=== PATIENT | male | born 1950 | race Caucasian/White ===

== ENCOUNTER 2019-11-30 09:47 | Emergency (ER) | payer MEDICARE, SELFPAY ==
[2019-11-30] VITALS (7 sets, daily range): BP systolic 154–177; BP diastolic 70–72; PULSE 68–83; RESP 13–21; TEMP 36.9; O2SAT 98–99
--- NOTE | 2019-11-30 10:04 | ED.GENADUL_ITS ---
Discharge Plan Disposition Patient Disposition: HOME Condition: Stable Discharge Details Chief Complaint: Palpitatns Clinical Impression: Chest heaviness Primary Care Provider: Monica Sol ED Provider: Jeanette Salas Home Meds and New Rx's Prescriptions: Continued flecainide [Tambocor] 50 MG tablet 50 mg PO BID RF: 0 aspirin 81 MG tablet,chewable 81 mg PO DAILY RF: 0 gabapentin 100 MG capsule 100 mg PO HS RF: 0 Discharge Instructions Instructions: Heart Palpitations (ED) Additional Instructions: Follow up with primary care provider in 3-5 days. Return to ED sooner if any worsening or concerns. Increase oral fluids. Continue taking your normal medications including aspirin daily. Return for any worsening chest heaviness, chest pain or worsening palpitations. Referrals: Monica Sol [Primary Care Provider] - Discharge Data Discharge Date/Time-TO BE ENTERED AT DEPARTURE: 11/30/19 11:29 Medical Decision Making <Jeanette Salas - Last Filed: 12/01/19 08:41> 69-year-old male presents to the ED with a chief complaint of palpitations. He describes this as fluttering, chest heaviness, weakness. Non radiating symptoms, began approximately 12 hours ago and is consistent. However, upon initial arrival he is in a controlled rate of 85 and normal sinus rhythm. Denies any other symptoms including nausea, vomiting, shortness of breath, or cough. He does have a history of atrial fibrillation and takes flecainide daily and aspirin intermittently. He did state that he took 325 mg aspirin prior to arrival. Patient does have positive cardiac family history. 1011: EKG was reviewed by [Dr. Reed Bruno MD.] ER attending, there is subtle ST depression noted in V4 V5 V6 which is similar in an EKG review from July 19, 2017. At this time cardiac work-up ordered including CBC, CMP, troponin, chest x-ray. Work-up is largely benign troponin is negative, platelet count 122. 1124: Patient refusing chest x-ray at this time. Discussed initial labs with patient, he is requesting to be discharged home. Plan is to discharge with strict return instructions. This text was generated using PulseSocksation system, please disregard any oddities of phrase or misspellings. Patient remained hemodynamically stable throughout stay alert and oriented and ambulatory prior to discharge. <Sam Bruno DO - Last Filed: 11/30/19 17:43> EKG 9: 50 Rate 78, SC 218, QTc 421, QRS 104, sinus rhythm, no significant ST elevation, minimal less than 1 mm depression in V4 V5 V6, no reciprocal elevations. Previous EKGs seem to demonstrate near identical findings particularly from 07/19/2017. No other abnormalities, no evidence of STEMI Patient was seen in conjunction with Rosita Lincoln. Please refer to her HPI, physical exam assessment and plan. Abbreviated note, patient was seen and assessed by myself independently, patient presents with chest pain that occurred last night which she describes more so is a palpitation/fluttering-like feeling. No syncope, no chest heaviness tightness or elephant sitting on his chest. Exam is notably unremarkable, heart score is low to low moderate risk. Sinus rhythm here, no signs of A. fib or other abnormality to speak of aside from mild nonspecific less than a millimeter depression in V4 V5 V6 which seems to be present on prior EKGs. Symptoms notably inconsistent with severe ACS, however with his history I do feel that a cardiac work-up is reasonable to evaluate abnormalities. Laboratory work-up is unremarkable, troponin normal. Was requested that the patient stay for serial troponins and get an x-ray however he refused both. Patient was very pleasant and after long discussion was had regarding the risks and benefits of this plan the patient agreed to accept those risks, and was discharged per his request. I independently performed a history and physical examination of the patient and discussed the management with the midlevel provider. I agree with the current plan of management at the time of signing. HPI <Jeanette Worthingtonton - Last Filed: 12/01/19 08:41> General Mode of arrival: ambulatory . Date/Time Provider Initiated Documentation: 11/30/19 09:48 . Limitations to Documentation: no limitations . Information obtained by: patient . HPI Narrative: 69-year-old male presents to the ED with a chief complaint of palpitations. He describes this as fluttering, chest heaviness, weakness. Non radiating symptoms, began approximately 12 hours ago and is consistent. Denies any other symptoms including nausea, vomiting, shortness of breath, or cough. He does have a history of atrial fibrillation and takes flecainide daily and aspirin intermittently. He did state that he took 325 mg aspirin prior to arrival. Patient does have positive cardiac family history. Related Data Home Medications Medication Instructions Recorded Confirmed aspirin 81 mg PO DAILY 06/17/15 11/30/19 flecainide [Tambocor] 50 mg PO BID 06/17/15 11/30/19 gabapentin 100 mg PO HS 07/19/17 11/30/19 Allergies Allergy/AdvReac Type Severity Reaction Status Date / Time No Known Allergies Allergy Unverified 11/30/19 09:57 General Stated Complaint: Palpitatns ZION: 2 Review of Systems <Jeanette Salas - Last Filed: 12/01/19 08:41> Narrative: Constitutional: Negative for weight loss, alert and oriented, well groomed, normal body habitus, appears comfortable. Reports he did not sleep last night. HEENT: Denies trauma, headaches, blurry vision, nasal discharge, sore throat, trouble swallowing. Chest: History of atrial fibrillation, complains of palpitations, chest heaviness, weakness. Respiratory: Denies Shortness of breath, cough, hemoptysis. GI: Denies abdominal pain, nausea, vomiting, diarrhea, constipation. : Denies dysuria, hematuria, flank pain, rectal bleeding. Neuro: Denies dizziness, blurry vision, syncope, headache or facial numbness. Hematologic: Denies easy bruising, intolerance to heat or cold, hair loss. PFSH <Jeanette Salas - Last Filed: 12/01/19 08:41> Social History Smoking/Tobacco Use Status: Never Alcohol Intake: current Alcohol Intake frequency: holidays/special occasions only Drug use: Never Substance use type: does not use Do you feel safe at home: Yes Do you feel safe in your relationship?: Yes Exam <Jeanette Maritza - Last Filed: 12/01/19 08:41> Narrative Exam Narrative: Constitutional: Alert and oriented x3. Appears stated age. Normal body habitus. Head: Normocephalic, no trauma. Eyes: Pupils PERRLA, Red reflex noted, EOM's intact. Eyelids symmetrical without lesions, discharge, or swelling. ENT: Bilateral TM's WNL, External ear normal to inspection, no mastoid TTP, swelling, or erythema, Nasal turbinates WNL, no nasal discharge. Normal dentition, Posterior pharynx WNL, no exudate. Chest: RRR, Normal S1, S2, distal pulses intact. Normal sinus rhythm upon arrival. Resp: Lungs clear to auscultation bilaterally, no wheezes, rales, or rhonchi. Musculoskeletal: Normal gait, 5/5 strength to all four extremities. Skin: No suspicious rashes or lesions. Capillary refill less than 2 sec. Neurologic: Cranial nerves II-XII intact. Alert and oriented x 3. DTR's intact. Hematologic/Lymphatic: No ecchymosis, no lymphadenopathy. Course <Jeanette Worthingtonton - Last Filed: 12/01/19 08:41> Vital Signs Vital signs: Vital Signs Temperature 36.9 C 11/30/19 09:48 Pulse 82 11/30/19 09:48 Respiratory Rate 14 11/30/19 09:48 Blood Pressure 177/72 H 11/30/19 09:48 Pulse Oximetry 98 11/30/19 09:48 Temperature 36.9 C 11/30/19 09:48 Temperature Source Skin 11/30/19 09:48 Pulse 82 11/30/19 09:48 Respiratory Rate 14 11/30/19 09:48 Respiratory Effort 11/30/19 09:58 Blood Pressure 177/72 H 11/30/19 09:48 Pulse Oximetry 98 11/30/19 09:48 Oxygen Delivery Method Room Air 11/30/19 09:48 Oxygen Flow Rate 0 11/30/19 09:48 Pain Level 0 11/30/19 09:48
[2019-11-30 10:42] LABS: Abs Immature Grans 0.01 k/cumm (0.0-0.09); Absolute Basophil Count 0.03 k/cumm (0.0-0.2); Absolute Eosinophil Count 0.06 k/cumm (0.0-0.7); Absolute Lymphocyte Count 0.84 k/cumm (1.2-3.4); Absolute Monocyte Count 0.37 k/cumm (0.11-0.7); Basophils % 0.7; Eosinophils % 1.4; HCT 42.1 % (40.0-50.0); HGB 14.4 g/dL (13.5-17.5); Immature Grans % 0.2 %; Mean Corp. HGB Concentration 34.2 g/dL (32.0-36.0); Mean Corpuscular Hemoglobin 32.2 pg (27.0-33.0); Mean Corpuscular Volume 94.2 fL (80-95); Mean Platelet Volume 11.8 fL (8.0-11.0); Monocytes % 8.4; Neutrophils % 70.3; Platelet Count 122 x1000/uL (130-400); RBC 4.47 m/cumm (4.50-6.00); RBC Distribution Width 12.6 % (11.8-14.1); White Blood Cell Count 4.41 k/cumm (4.4-10.8)
[2019-11-30 10:55] LABS: ALT 25 U/L (16-63); AST 20 U/L (15-37); Albumin 3.7 g/dL (3.4-5.0); Alkaline Phosphatase 69 U/L (46-116); BUN 19 mg/dL (7-18); Bilirubin, Total 0.6 mg/dL (0.2-1.0); CREATININE 1.05 mg/dL (0.70-1.30); Calcium 8.7 mg/dL (8.5-10.1); Chloride 108 mmol/L (98-107); Glucose 104 mg/dL (74-106); Magnesium 1.9 mg/dL (1.8-2.4); Potassium 3.9 mmol/L (3.5-5.1); Sodium 141 mmol/L (136-145); Total Protein 6.6 g/dL (6.4-8.2)
[2019-11-30 10:56] LABS: Troponin I < 0.05 ng/mL (<0.06)
== END 2019-11-30 11:29 | disposition home or self-care (01) ==
PROVIDERS: Emergency Provider Registered Nurse Emergency; PCP Nurse Practitioner Family
DX: R07.89 Other chest pain (principal); R00.2 Palpitations
CPT/HCPCS: 36415; 80053; 93005; 99284; 83735; 84484; 85025; 93010

== ENCOUNTER 2020-09-23 14:56 | Outpatient (CLI) | payer MEDICARE, SELFPAY ==
--- NOTE | 2020-09-23 14:00 | DI.RAD_ITS ---
EXAM: XR KNEE RT 4V AP,LAT,JYOTI,PAT CLINICAL HISTORY: bilateral knee pain. TECHNIQUE: 2D digital imaging was performed. COMPARISON: No exams were available for comparison FINDINGS: No evidence of fracture although there is a joint effusion noted. Moderate-advanced degenerative ross nges are noted in the medial compartment. Advanced degenerative changes in the patellofemoral compar tment. Mild changes in the lateral compartment. Degenerative subarticular cysts are noted in the mi d aspect tibial plateau. IMPRESSION: Tricompartmental osteoarthritic changes. Joint effusion DATA REPOSITORY: RADIATION DOSE DELIVERED:
--- NOTE | 2020-09-23 14:00 | DI.RAD_ITS ---
EXAM: XR KNEE LT 4V AP,LAT,JYOTI,PAT CLINICAL HISTORY: bilateral knee pain. TECHNIQUE: 2D digital imaging was performed. COMPARISON: CR XR KNEE RT 4V AP,LAT,JYOTI,PAT from 09/23/2020 FINDINGS: There is no evidence fracture although there is a joint effusion noted. There are advanced degenerat stefan changes in the medial and patellofemoral compartments. Moderate degenerative changes in the late ral compartment. Bone density otherwise normal and no osseous lesions. IMPRESSION: DATA REPOSITORY: RADIATION DOSE DELIVERED:
== END 2020-09-23 14:57 | disposition home or self-care (01) ==
LOC: DIORS 14:57
PROVIDERS: PCP Nurse Practitioner Family; Referring Provider Nurse Practitioner Family; Visit Provider Student in an Organized Health Care Education/Training Program
DX: M25.561 Pain in right knee (principal); M25.461 Effusion, right knee; M25.562 Pain in left knee; M25.462 Effusion, left knee; M17.0 Bilateral primary osteoarthritis of knee
CPT/HCPCS: 99213; 73564

== ENCOUNTER 2020-10-23 11:24 | Outpatient (CLI) | payer MEDICARE, SELFPAY ==
[2020-10-23] MEDS: Omnipaque 350 MG/ML 50 ML BTL IJ (12:56)
[2020-10-23] MEDS: Breeza Beverage 473 ML BTL PO ×2 (12:57→12:58)
[2020-10-23 13:06] LABS: CREATININE 1.1 mg/dL (0.70-1.30)
--- NOTE | 2020-10-23 14:06 | DI.CT_ITS ---
Exam(s) CT ABDOMEN PELVIS W EXAM: CT ABDOMEN PELVIS W CLINICAL HISTORY: ACUTE ABD PAIN, R10.9. TECHNIQUE: Imaging Protocol: Axial computed tomography images with coronal and sagittal reformatted images were created and reviewed CONTRAST MATERIAL: Intravenous: Omnipaque 100cc Oral: None COMPARISON: No exams were available for comparison FINDINGS: VISUALIZED LUNG BASES: No nodules nor pleural effusions evident. ABDOMEN: There is no ascites. LIVER: There is a benign-appearing tiny 3 millimeter hypodensity in the right hepatic lobe which is p robably a tiny meningioma or cyst; less likely an ominous osseous lesion. GALLBLADDER/BILIARY: The gallbladder is surgically absent. CBD is not dilated. PANCREAS: No evidence of pancreatic mass nor dilatation of the pancreatic duct. SPLEEN: Spleen is not enlarged. No obvious intrasplenic lesions. Splenic and portal veins are paten t. ADRENALS: There are no significant adrenal masses. KIDNEYS:There is a 12 x 8 millimeter benign cortical cyst in the left kidney. No other significant f ocal left kidney findings. There is an exophytic cyst in the inferior pole of the right kidney which measures 1.2 x 1.1 cm. No calculi nor hydronephrosis on either side. No solid renal masses. No ca lculi nor obvious masses in the urinary bladder... ABDOMINAL AORTA: Abdominal aorta is not enlarged. LYMPH NODES:There is no retroperitineal nor paraaortic adenopathy. ABDOMINAL WALL: No evidence of significant anterior abdominal wall hernia. PELVIS: GI: No evidence of appendicitis.There is sigmoid diverticulosis. There is also focal abnormal streak ing in the sigmoid consistent with acute diverticulitis. This appears phlegmonous but no abscess at this point. LYMPH NODES: There is no intrapelvic nor inguinal adenopathy. REPRODUCTIVE: Prostate gland is enlarged. URINARY BLADDER: No abnormality. No gas therein to suggest fistulous communication. OSSEOUS: No significant osseous lesions. There is partial ankylosis of the sacroiliac joints noted. IMPRESSION: 1. There is sigmoid diverticulosis and there is acute diverticulitis. No abscess at this time. Appr opriate follow-up recommended. 2. Single benign cyst in each kidney. No solid renal masses. No renal calculi nor hydronephrosis. 3. Tiny benign-appearing hypodensity in the liver which is probably hemangioma or small cyst. 4. Partial ankylosis of the sacroiliac joints is incidentally noted. RADIATION DOSE DELIVERED: 927.65mGy.cm Total DLP DATA REPOSITORY: All CT scans at this facility are submitted to the National Radiology Data Registry (NRDR) Dose Index Registry (DIR) with the [employer] (ACR). RADIATION OPTIMIZATION: All CT scans at this facility use at least one of these dose optimization te chniques: automated exposure control; mA and/or kV adjustment per patient size (includes targeted exa ms where dose is matched to clinical indication); or iterative reconstruction.
== END 2020-10-23 11:44 ==
PROVIDERS: PCP Nurse Practitioner Family; Visit Provider Physician Assistant Medical
DX: R10.9 Unspecified abdominal pain (principal); Z01.812 Encounter for preprocedural laboratory examination; K76.89 Other specified diseases of liver; N28.1 Cyst of kidney, acquired; N40.0 Benign prostatic hyperplasia without lower urinary tract symptoms; K57.30 Diverticulosis of large intestine without perforation or abscess without bleeding; K57.32 Diverticulitis of large intestine without perforation or abscess without bleeding
CPT/HCPCS: 74177; 82565; Q9967

== ENCOUNTER 2020-10-23 14:42 | Outpatient (REF) | payer MEDICARE, SELFPAY ==
[2020-10-23 14:20] LABS: Abs Immature Grans 0.02 10^3/uL (0.0-0.06); Absolute Basophil Count 0.07 10^3/uL (0.0-0.2); Absolute Eosinophil Count 0.03 10^3/uL (0.0-0.7); Absolute Lymphocyte Count 1.25 10^3/uL (1.2-3.4); Absolute Monocyte Count 0.51 10^3/uL (0.1-0.8); Absolute Neutrophil Count 6.27 10^3/uL (1.2-6.7); Basophils % 0.9; Eosinophils % 0.4; HCT 46.6 % (40.0-50.0); HGB 15.7 g/dL (13.5-17.5); Immature Grans % 0.2; Lymphocytes % 15.3; MCHC 33.7 % (32.0-36.0); MCV 94.9 fL (80-95); MPV 12.9 fL (8.0-11.0); Monocytes % 6.3; Neutrophils % 76.9; Nucleated RBC 0 %; Platelet Count 155 10^3/uL (130-400); RBC 4.91 10^6/uL (4.36-5.78); RDW 12.3 % (11.8-14.1); RDW-SD 42.7 fL; WBC 8.15 10^3/uL (4.4-10.8)
[2020-10-23 14:32] LABS: ALT 38 U/L (16-63); AST 23 U/L (15-37); Albumin 4.1 g/dL (3.4-5.0); Alkaline Phosphatase 85 U/L (46-116); Anion Gap 10.1 mmol/L (3-11); BUN 15 mg/dL (7-18); Bilirubin, Total 0.9 mg/dL (0.2-1.0); CO2 27.9 mmol/L (21.0-32.0); CREATININE 1.1 mg/dL (0.70-1.30); Calcium 9.1 mg/dL (8.5-10.1); Chloride 105 mmol/L (98-107); Glucose 105 mg/dL (74-106); Potassium 4.1 mmol/L (3.5-5.1); Sodium 143 mmol/L (136-145); Total Protein 7.4 g/dL (6.4-8.2)
[2020-10-24 16:17] LABS: COVID-19 RT-PCR UVMMC Result Negative (Negative)
== END 2020-10-23 14:43 | disposition home or self-care (01) ==
LOC: NCHCN 14:42
PROVIDERS: PCP Nurse Practitioner Family; Visit Provider Physician Assistant Medical
DX: R50.9 Fever, unspecified (principal); R10.9 Unspecified abdominal pain; R82.998 Other abnormal findings in urine; Z20.822 Contact with and (suspected) exposure to COVID-19
CPT/HCPCS: 80053; U0003; U0005; 85025; 87086

== ENCOUNTER 2021-01-06 15:02 | Outpatient (REF) | payer MEDICARE, SELFPAY | END 2021-01-06 15:03 | disposition home or self-care (01) | LOC: LBN 15:02 | PROVIDERS: PCP Nurse Practitioner Family; Visit Provider Physician Assistant Medical | DX: J02.9 Acute pharyngitis, unspecified (principal) | CPT/HCPCS: 87070 ==

== ENCOUNTER 2021-05-28 15:27 | Observation (INO) | payer MEDICARE, SELFPAY ==
[2021-05-28] VITALS (15 sets, daily range): BP systolic 118–163; BP diastolic 63–82; PULSE 68–96; RESP 12–40; TEMP 36.3–37.2; O2SAT 93–97
--- NOTE | 2021-05-28 15:15 | RT.EKG_ITS ---
APPROVED REPORT Exam: Resting ECG Reason for Exam: lightheaded Patient Location: E HR:89 bpm ECG Measurements Heart Rate 89 AXIS [place] 208 P 69 QRSd 98 QRS -27 QT 342 T 34 QTc 417 Conclusion Sinus rhythm...normal P axis, V-rate 60- [address] dep, no change compared to prior NO stemi
[2021-05-28 15:42] LABS: Bilirubin Negative (Negative); Blood Negative (Negative); Clarity Clear (Clear); Glucose Negative (Negative); Ketones Negative (Negative); Leukocyte Esterase Negative (Negative); Nitrite Negative (Negative); Specific Gravity >= 1.030 (1.005-1.025); Urobilinogen 0.2 EU/dL (Up TO 0.2)
--- NOTE | 2021-05-28 15:45 | DI.RAD_ITS ---
Exam(s) XR CHEST 2V PA LATERAL EXAM: XR CHEST 2V PA LATERAL CLINICAL HISTORY: chest pain TECHNIQUE: 2D digital imaging was performed. COMPARISON: CR CHEST 2 VIEWS PA,LAT from 07/19/[address] ABDOMEN PELVIS W from 10/23/[address] ABDOMEN PELVIS W from 10/23/2020 FINDINGS: MEDIASTINUM: Normal. HEART: Normal. PULMONARY VASCULATURE: Normal. LUNGS: Clear. PLEURAL SPACE: No pleural effusion or pneumothorax. BONE:Unremarkable for age. IMPRESSION: No acute abnormality. DATA REPOSITORY: RADIATION DOSE DELIVERED:
[2021-05-28 16:06] LABS: Source Nasal/Nares
[2021-05-28 16:08] LABS: Abs Immature Grans 0.01 10^3/uL (0.0-0.06); Absolute Basophil Count 0.07 10^3/uL (0.0-0.2); Absolute Eosinophil Count 0.04 10^3/uL (0.0-0.7); Absolute Lymphocyte Count 0.89 10^3/uL (1.2-3.4); Absolute Neutrophil Count 4.16 10^3/uL (1.2-6.7); Basophils % 1.2; Eosinophils % 0.7; HCT 44.9 % (40.0-50.0); HGB 14.8 g/dL (13.5-17.5); Immature Grans % 0.2; Lymphocytes % 15.7; MCH 31.8 pg (27.0-33.0); MCV 96.6 fL (80-95); MPV 11.8 fL (8.0-11.0); Monocytes % 8.8; Neutrophils % 73.4; Nucleated RBC 0 %; Platelet Count 140 10^3/uL (130-400); RBC 4.65 10^6/uL (4.36-5.78); RDW 12.3 % (11.8-14.1); RDW-SD 43.6 fL; WBC 5.67 10^3/uL (4.4-10.8)
[2021-05-28 16:26] LABS: ALT 44 U/L (16-63); AST 26 U/L (15-37); Albumin 4.2 g/dL (3.4-5.0); Alkaline Phosphatase 75 U/L (46-116); Anion Gap 5.8 mmol/L (3-11); BUN 27 mg/dL (7-18); Bilirubin, Total 0.3 mg/dL (0.2-1.0); CO2 28.2 mmol/L (21.0-32.0); CREATININE 1.7 mg/dL (0.70-1.30); Calcium 8.8 mg/dL (8.5-10.1); Chloride 105 mmol/L (98-107); Estimated GFR 39.93 (mL/min/1.73m2); Glucose 130 mg/dL (74-106); Magnesium 2.1 mg/dL (1.8-2.4); Potassium 4.5 mmol/L (3.5-5.1); Sodium 139 mmol/L (136-145); Total Protein 7.1 g/dL (6.4-8.2); Troponin I < 50 ng/L (<or=60)
[2021-05-28 16:33] LABS: PTT Activated 22.8 sec (21.0-27.5)
[2021-05-28 16:43] LABS: D-Dimer 323 ng/mlFEU (<500)
--- NOTE | 2021-05-28 16:50 | ED.GENADUL_ITS ---
Discharge Plan Disposition Patient Disposition: [facility] INPATIENT Condition: Serious Discharge Details Chief Complaint: GenMedical Clinical Impression: Chest pain, Lightheadedness Primary Care Provider: Monica Sol ED Provider: Wenceslao Solares Home Meds and New Rx's Prescriptions: No Action ascorbic acid (vitamin C) 1,000 mg tablet 4 g PO DAILY RF: 0 omega-3 fatty acids [Fish Oil Concentrate] 1,000 mg capsule 2,000 mg PO DAILY RF: 0 cholecalciferol (vitamin D3) 25 mcg (1,000 unit) capsule 75 mcg PO DAILY PRNRF: 0 magnesium 250 mg tablet 250 mg PO DAILY RF: 0 folic acid 400 mcg tablet 0.8 mg PO DAILY RF: 0 vitamin B complex [Super B-50 Complex] Capsule 1 cap PO DAILY RF: 0 fluticasone propionate [Children's Flonase Allergy Rlf] 50 mcg/actuation spray,suspension 1 spray intranasal DAILY RF: 0 lysine [L-Lysine] 500 mg tablet 1,000 mg PO DAILY RF: 0 turmeric root extract 500 mg capsule 500 mg PO DAILY RF: 0 montelukast [Singulair] 10 mg tablet 10 mg PO QHS RF: 0 henjmpw-tsuiwgzg-xcdvmk-papaya 50 mcg-1 mg- 10 mg-10 mg tablet,chewable 3 tab PO BID RF: 0 flecainide [Tambocor] 50 MG tablet 50 mg PO BID RF: 0 aspirin 81 MG tablet,chewable 81 mg PO DAILY RF: 0 gabapentin 100 mg capsule 200 mg PO HS RF: 0 Medical Decision Making 1700??70-year-old male presents with chest discomfort and intermittent fatigue and lightheadedness since yesterday. Patient did have episode of hypoxia in the 80s yesterday. No cough or fever. Patient has no active chest pain or shortness of breath at this time. No calf pain or swelling. Patient has recent history of epididymitis and is currently on Bactrim day #8. Symptoms improving. No signs of epididymitis on exam today. Consider unstable angina. EKG was reviewed and interpreted by me: Please see report, no STEMI, ST depressions are noted and were present in the past. Plan to check troponin and trend. Consider pulmonary embolism. Plan to check D-dimer. Initial labs reviewed and creatinine is notably elevated at 1.7. BUN is also elevated. Consider prerenal I will give IV fluid bolus. --Patient did have bigeminy noted on front desk monitor for less than 1 minute. 185 --initial troponin and second troponin at 2 hours negative. Patient reassessed remains chest pain-free. Given risk factors and history, plan will be to observe overnight on front desk monitor with serial troponins. I called and spoke with Dr. Mccain, on-call hospitalist, he will admit the patient. He request bridging orders be placed to floor. HPI General Mode of arrival: ambulatory . Date/Time Provider Initiated Documentation: 05/28/21 15:30 . Limitations to Documentation: no limitations . Information obtained by: patient . HPI Narrative: 70yo m with past medical history significant for A. fib and also listed anxiety disorder, recently diagnosed with right-sided epididymitis and started on Bactrim which he has been on for the past week, here now with chief complaint of fatigue. Patient notes fatigue and lightheadedness that started yesterday after shoveling snow. He also notes associated cramping discomfort in his chest today as well as ongoing intermittent lightheadedness. Symptoms are moderate with no modifiers. No associated leg pain or swelling. No associated shortness of breath. Of note, his checked his oxygen saturation yesterday and it did range from 86 to 98% on room air. Pain from right epididymitis has improved. Related Data Home Medications Medication Instructions Recorded Confirmed aspirin 81 mg PO DAILY 06/17/15 05/28/21 flecainide [Tambocor] 50 mg PO BID 06/17/15 05/28/21 gabapentin 100 mg capsule 200 mg PO HS cap 09/23/20 05/28/21 amylase 50 mcg-protease 1 3 tab PO BID tab 09/24/20 mg-papain 10 mg-papaya 10 mg chewable tablet ascorbic acid (vitamin C) 1,000 mg 4 g PO DAILY tab 09/24/20 05/28/21 tablet cholecalciferol (vitamin D3) 25 75 mcg PO DAILY PRN cap 09/24/20 05/28/21 mcg (1,000 unit) capsule fluticasone propionate 50 1 spray INTRANASAL DAILY 09/24/20 mcg/actuation nasal spray,suspension folic acid 400 mcg tablet 0.8 mg PO DAILY tab 09/24/20 lysine 500 mg tablet 1,000 mg PO DAILY tab 09/24/20 05/28/21 magnesium 250 mg tablet 250 mg PO DAILY 09/24/20 05/28/21 montelukast 10 mg tablet 10 mg PO QHS 09/24/20 omega-3 fatty acids 1,000 mg 2,000 mg PO DAILY cap 09/24/20 capsule turmeric root extract 500 mg 500 mg PO DAILY 09/24/20 capsule vitamin B complex 1 cap PO DAILY 09/24/20 05/28/21 Allergies Allergy/AdvReac Type Severity Reaction Status Date / Time No Known Allergies Allergy Verified 05/28/21 15:47 General Stated Complaint: GenMedical ZION: 3 Review of Systems All systems reviewed & are unremarkable except as noted in HPI and below Constitutional Constitutional: Denies fever(s) Cardiovascular Cardiovascular: Reports as per HPI, Reports chest pain and Denies irregular heart rhythm Respiratory Respiratory: Reports as per HPI Gastrointestinal Gastrointestinal: Denies abdominal pain PFSH All Active Problems (Updated 05/28/21 @ 18:59 by Wenceslao Solares MD) Chest pain (Acute) Lightheadedness (Acute) Shingles (Acute) BPH (benign prostatic hyperplasia) (Chronic) Erectile dysfunction (Acute) Anxiety disorder (Acute) Tinnitus, bilateral (Acute) Osteoarthritis cervical spine (Acute) RLS (restless legs syndrome) (Acute) Afib (Chronic) 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 Exam Const General: cooperative and no acute distress HENMT Mouth: moist mucous membranes Eyes Conjunctivae: normal conjunctivae Sclera: normal sclerae Neck Neck: trachea midline and supple Resp Auscultation: clear to auscultation bilaterally, no rales, no rhonchi and no wheezes Cardio Rate: regular rate and not tachycardic Rhythm: regular rhythm GI Palpation: soft, not firm, no guarding, no masses, not rigid and nontender Skin General skin exam: no rashes or lesions noted Neuro General: patient alert, patient awake, patient oriented x3 and tone normal Extrem General: no edema Psych Appearance: grossly normal Mental Status: mental status grossly normal Course Vital Signs Vital signs: Vital Signs Temperature 37.2 C 05/28/21 15:32 Pulse 96 H 05/28/21 15:32 Respiratory Rate 14 05/28/21 15:32 Blood Pressure 163/82 H 05/28/21 15:32 Pulse Oximetry 97 05/28/21 15:32 Temperature 37.2 C 05/28/21 15:32 Temperature Source Oral 05/28/21 15:32 Pulse 96 H 05/28/21 15:32 Pulse 81 05/28/21 16:30 Respiratory Rate 17 05/28/21 16:30 Respiratory Effort Non-Labored 05/28/21 15:39 Respiratory Depth Normal 05/28/21 15:39 Respiratory Pattern Normal 05/28/21 15:39 Blood Pressure 163/82 H 05/28/21 15:32 Blood Pressure Position Supine 05/28/21 15:32 Pulse Oximetry 95 05/28/21 16:30 Oxygen Delivery Method Room Air 05/28/21 15:32 Oxygen Flow Rate 0 05/28/21 15:32 Pain Level 0 05/28/21 15:32 Lab/Test Results Lab/Test Results: Laboratory Tests Range/Units 05/28/21 05/28/21 05/28/21 15:36 16:00 16:00 WBC (4.4-10.8) 10^3/uL RBC (4.36-5.78) 10^6/uL Hgb (13.5-17.5) g/dL Hct (40.0-50.0) % MCV (80-95) fL MCH (27.0-33.0) pg MCHC (32.0-36.0) % RDW (11.8-14.1) % Plt Count (130-400) 10^3/uL MPV (8.0-11.0) fL Immature Gran % Neutrophils % Lymphocytes % Monocytes % Eosinophils % Basophils % Nucleated RBC % % Absolute Neutrophils (1.2-6.7) 10^3/uL Absolute Lymphocytes (1.2-3.4) 10^3/uL Absolute Monocytes (0.1-0.8) 10^3/uL Absolute Eosinophils (0.0-0.7) 10^3/uL Absolute Basophils (0.0-0.2) 10^3/uL APTT (21.0-27.5) sec D-Dimer (<500) ng/mlFEU Sodium (136-145) mmol/L 139 Potassium (3.5-5.1) mmol/L 4.5 Chloride (98-107) mmol/L 105 Carbon Dioxide (21.0-32.0) mmol/L 28.2 Anion Gap (3-11) mmol/L 5.8 BUN (7-18) mg/dL 27 H Creatinine (0.70-1.30) mg/dL 1.7 H Estimated GFR/1.73 m2 (mL/min/1.73m2) 39.93 Glucose (74-106) mg/dL 130 H Calcium (8.5-10.1) mg/dL 8.8 Magnesium (1.8-2.4) mg/dL 2.1 Total Bilirubin (0.2-1.0) mg/dL 0.3 AST (15-37) U/L 26 ALT (16-63) U/L 44 Alkaline Phosphatase (46-116) U/L 75 Troponin I (<or=60) ng/L < 50 Total Protein (6.4-8.2) g/dL 7.1 Albumin (3.4-5.0) g/dL 4.2 Urine Color (Yellow) Yellow Urine Clarity (Clear) Clear Urine pH (5-8) 6.0 Ur Specific [place] (1.005-1.025) >= 1.030 H Urine Protein (Negative) mg/dL Negative Urine Ketones (Negative) mg/dL Negative Urine Blood (Negative) Negative Urine Nitrite (Negative) Negative Urine Bilirubin (Negative) Negative Urine Urobilinogen (Up TO 0.2) EU/dL 0.2 Ur Leukocyte Esterase (Negative) Negative Urine Glucose (Negative) mg/dL Negative COVID-19 Source Nasal/Nares Range/Units 05/28/21 05/28/21 16:00 16:00 WBC (4.4-10.8) 10^3/uL 5.67 RBC (4.36-5.78) 10^6/uL 4.65 Hgb (13.5-17.5) g/dL 14.8 Hct (40.0-50.0) % 44.9 MCV (80-95) fL 96.6 H MCH (27.0-33.0) pg 31.8 MCHC (32.0-36.0) % 33.0 RDW (11.8-14.1) % 12.3 Plt Count (130-400) 10^3/uL 140 MPV (8.0-11.0) fL 11.8 H Immature Gran % 0.2 Neutrophils % 73.4 Lymphocytes % 15.7 Monocytes % 8.8 Eosinophils % 0.7 Basophils % 1.2 Nucleated RBC % % 0 Absolute Neutrophils (1.2-6.7) 10^3/uL 4.16 Absolute Lymphocytes (1.2-3.4) 10^3/uL 0.89 L Absolute Monocytes (0.1-0.8) 10^3/uL 0.50 Absolute Eosinophils (0.0-0.7) 10^3/uL 0.04 Absolute Basophils (0.0-0.2) 10^3/uL 0.07 APTT (21.0-27.5) sec 22.8 D-Dimer (<500) ng/mlFEU 323 Sodium (136-145) mmol/L Potassium (3.5-5.1) mmol/L Chloride (98-107) mmol/L Carbon Dioxide (21.0-32.0) mmol/L Anion Gap (3-11) mmol/L BUN (7-18) mg/dL Creatinine (0.70-1.30) mg/dL Estimated GFR/1.73 m2 (mL/min/1.73m2) Glucose (74-106) mg/dL Calcium (8.5-10.1) mg/dL Magnesium (1.8-2.4) mg/dL Total Bilirubin (0.2-1.0) mg/dL AST (15-37) U/L ALT (16-63) U/L Alkaline Phosphatase (46-116) U/L Troponin I (<or=60) ng/L Total Protein (6.4-8.2) g/dL Albumin (3.4-5.0) g/dL Urine Color (Yellow) Urine Clarity (Clear) Urine pH (5-8) Ur Specific [place] (1.005-1.025) Urine Protein (Negative) mg/dL Urine Ketones (Negative) mg/dL Urine Blood (Negative) Urine Nitrite (Negative) Urine Bilirubin (Negative) Urine Urobilinogen (Up TO 0.2) EU/dL Ur Leukocyte Esterase (Negative) Urine Glucose (Negative) mg/dL COVID-19 Source PAWSS Have you Been Recently Intoxicated or Drunk Within the Last 30 days?: No Have you Ever Experienced Previous Episodes of Alcohol Withdrawal?: No Have you ever Experienced Withdrawal Seizures?: No Have you ever Experienced Delirium Tremens(DT)s?: No Have you ever undergone Alcohol Rehabilitation Treatment (i.e, inpt ot outpatient treatment programs)?: No Have you ever Experienced Blackouts?: No Have you ever Combined Alcohol with other Downers within the last 90 days?: No Have you ever Combined Alcohol with any other Substance of Abuse during the last 90 days?: No Positive Blood Alcohol level on Presentation? [PCS.BAL]: No Evidence of Increased Autonomic Activity (i.e. HR>120, tremor, sweating, agitation, nausea)?: No Result: 0
[2021-05-28] MEDS: Lactated Ringers 500 ML IV (17:30)
--- NOTE | 2021-05-28 17:45 | RT.EKG_ITS ---
APPROVED REPORT Exam: Resting ECG Reason for Exam: 2nd Trop-fatigue Patient Location: E HR:68 bpm ECG Measurements Heart Rate 68 AXIS KS 237 P 38 QRSd 95 QRS -30 QT 369 T 15 QTc 393 Conclusion Sinus rhythm...normal P axis, V-rate 60- 99 Prolonged KS interval...KS >220, V-rate 50- 90 Inferior infarct, old...Q >35mS, II III aVF
--- NOTE | 2021-05-28 18:00 | NUR.NOTE ---
Nursing Note:Pt recieving IVF, denies current complaints, 2nd troponin drawn & sent to lab per , cont. to monitor.
[2021-05-28 18:31] LABS: Troponin I < 50 ng/L (<or=60)
--- NOTE | 2021-05-28 19:30 | DI.VRAD_ITS ---
PROCEDURE INFORMATION: Exam: XR Chest Exam date and time: 05/28/2021 3:49 PM Age: 70 years old Clinical indication: Other: Chest pain TECHNIQUE: Imaging protocol: XR of the chest. Views: 2 views. Total images: 2 COMPARISON: CR CHEST 2 VIEWS PA,LAT 07/19/2017 9:52 PM FINDINGS: Lungs: There is perihilar interstitial opacity. Pleural spaces: No pleural effusion. No pneumothorax. Heart/Mediastinum: Unremarkable. No cardiomegaly. Bones/joints: No acute bone abnormality. IMPRESSION: Perihilar interstitial opacity may represent pulmonary edema or infection. Dictated and Authenticated by: Elsa Way MD. Ordering:BRANDON Billy MD
--- NOTE | 2021-05-28 20:12 | HPE_ITS ---
Date of service: 05/28/21 Time of Service: 20:12 Assessment and Plan Assessment and plan (1) Chest pain: Status: Acute Assessment and plan: I reviewed his laboratory studies and electrocardiogram. He does have Q waves of leads III and F. They are not new. It is difficult to open up previous electrocardiograms in the computer system there does appear to these Q waves go back a few years. He probably had an echocardiogram in the past but it may be worth repeating it soon. His chest discomfort is a bit atypical but there is a family history of heart disease and with his weakness and lightheadedness that followed shoveling a stress test is probably indicated. (2) Lightheadedness: Status: Acute Assessment and plan: Etiology of this is unclear. His vital signs are stable. He will be admitted observation and on a Welfare Investigator. I Am Checking a CK Level As Well As Thyroid Functions. (3) Elevated serum creatinine: Status: Acute Assessment and plan: His baseline creatinine is 1.0. It is elevated today 1.7. He has not had any gastrointestinal symptoms but it is possible the Bactrim may have been giving him some GI upset and he could have mild dehydration. He did receive a bolus of lactated Ringer's in the emergency department. We will recheck his creatinine tomorrow. History of Present Illness History of Present Illness Chief Complaint: lightheadedness, weakness, chest discomfort Narrative: This 70-year-old male is here because of weakness, l ightheadedness and some chest discomfort. He has a history of atrial fibrillation which was treated with flecainide and has been stable since then. He has not been noted to have any recurrent atrial fibrillation. 2 days ago he was shoveling some snow but he says it was not too difficult. He was not feeling too stressed from this and about 2 hours later he felt fatigued and lightheaded with some blurry vision. His checked his oxygen saturations and they varied from 86% to 98%. She checked herself on the same pulse oximeter and her numbers are perfectly normal. He did not feel short of breath nor was he having any chest discomfort at that time. He said he had only shoveled for about 15 minutes. They talked to their doctor's office and it was elected to watch his symptoms and to come the emergency department if his symptoms got worse. Today he felt lightheaded and fatigued. He was having some epigastric and lower chest discomfort that he says he would characterizes as chest cramping. He was not having any diaphoresis, dyspnea, radiation of the pain to his back or jaws or neck. He would not characterize this his pain at all. He is now on day 8 of treatment for epididymitis with Bactrim DS. He was treated for right epididymitis at the [facility]. There is a family history of heart disease with his father having to bypass surgeries and a chest aneurysm walker rgery. He does not use tobacco and rarely drinks alcohol. 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 He was evaluated emergency department and had 2 - troponins and negative D-dimer. He was noted on monitor to have a run of bigeminy. He was also noted to have an elevated creatinine of 1.7 compared to a baseline of 1.0. He has had 2 coronavirus vaccine doses and is scheduled for the booster in June. He has not been around anyone's been sick. He thinks epididymitis is improving and is currently having only a tingling in his testicle. Review of Systems Constitutional Constitutional: Denies chills, Denies fever(s), Denies frequent falls and Reports lethargy Cardiovascular Cardiovascular: Denies chest pain, Denies diaphoresis, Denies leg edema, Reports lightheadedness, Denies palpitations and Denies dyspnea Respiratory Respiratory: Denies cough, Denies pain on inspiration, Denies dyspnea and Denies wheezing Gastrointestinal Gastrointestinal: Reports abdominal pain, Denies constipation, Denies diarrhea, Denies nausea and Denies vomiting Genitourinary Genitourinary: Denies oliguria, Denies difficulty urinating and Reports testicular pain Neurologic Neurologic: Denies frequent falls Endocrine Endocrine: Denies palpitations Allergic/Immunologic Allergic/Immunologic: Denies wheezing PFSH All Active Problems (Updated 05/28/21 @ 20:25 by Jhonny Mccain MD) Elevated serum creatinine (Acute) Chest pain (Acute) Lightheadedness (Acute) Shingles (Acute) BPH (benign prostatic hyperplasia) (Chronic) Erectile dysfunction (Acute) Anxiety disorder (Acute) Tinnitus, bilateral (Acute) Osteoarthritis cervical spine (Acute) RLS (restless legs syndrome) (Acute) Afib (Chronic) 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 Meds Allergies and Home Medications Allergies Allergy/AdvReac Type Severity Reaction Status Date / Time No Known Allergies Allergy Verified 05/28/21 15:47 Home Medications Medication Instructions Recorded Confirmed Type aspirin 81 mg PO DAILY 06/17/15 05/28/21 History flecainide [Tambocor] 50 mg PO BID 06/17/15 05/28/21 History gabapentin 100 mg capsule 200 mg PO HS cap 09/23/20 05/28/21 History amylase 50 mcg-protease 1 3 tab PO BID tab 09/24/20 History mg-papain 10 mg-papaya 10 mg chewable tablet ascorbic acid (vitamin C) 1,000 mg 4 g PO DAILY tab 09/24/20 05/28/21 History tablet cholecalciferol (vitamin D3) 25 75 mcg PO DAILY PRN cap 09/24/20 05/28/21 History mcg (1,000 unit) capsule fluticasone propionate 50 1 spray INTRANASAL DAILY 09/24/20 History mcg/actuation nasal spray,suspension folic acid 400 mcg tablet 0.8 mg PO DAILY tab 09/24/20 History lysine 500 mg tablet 1,000 mg PO DAILY tab 09/24/20 05/28/21 History magnesium 250 mg tablet 250 mg PO DAILY 09/24/20 05/28/21 History montelukast 10 mg tablet 10 mg PO QHS 09/24/20 History omega-3 fatty acids 1,000 mg 2,000 mg PO DAILY cap 09/24/20 History capsule turmeric root extract 500 mg 500 mg PO DAILY 09/24/20 History capsule vitamin B complex 1 cap PO DAILY 09/24/20 05/28/21 History Exam Const General: cooperative, healthy appearing, comfortable, no acute distress, well developed, well groomed and not ill appearing Orientation: alert, awake and oriented x3 Neck Neck: normal visual inspection and no lymphadenopathy Thyroid: thyroid normal Resp Effort & Inspection: normal respiratory effort and able to speak in complete sentences Auscultation: clear to auscultation bilaterally, no rales and no rhonchi Cardio Jugular venous pressure: no JVD Rate: regular rate Rhythm: regular rhythm Heart Sounds: S1 normal, S2 normal, no gallops and no murmurs GI Inspection: normal to inspection Palpation: soft, no hepatosplenomegaly, not rigid and nontender Skin General skin exam: no rashes or lesions noted Extrem General: normal to inspection, no pedal edema and no calf tenderness Results Labs Result diagrams: 05/28/21 16:00 05/28/21 16:00 Labs: Laboratory Results - last 24 hr 05/28/21 05/28/21 05/28/21 15:36 16:00 16:00 WBC RBC Hgb Hct MCV MCH MCHC RDW Plt Count MPV Immature Gran % Neutrophils % Lymphocytes % Monocytes % Eosinophils % Basophils % Nucleated RBC % Absolute Neutrophils Absolute Lymphocytes Absolute Monocytes Absolute Eosinophils Absolute Basophils APTT D-Dimer Sodium 139 Potassium 4.5 Chloride 105 Carbon Dioxide 28.2 Anion Gap 5.8 BUN 27 H Creatinine 1.7 H Estimated GFR/1.73 m2 39.93 Glucose 130 H Calcium 8.8 Magnesium 2.1 Total Bilirubin 0.3 AST 26 ALT 44 Alkaline Phosphatase 75 Troponin I < 50 Total Protein 7.1 Albumin 4.2 Urine Color Yellow Urine Clarity Clear Urine pH 6.0 Ur Specific [place] >= 1.030 H Urine Protein Negative Urine Ketones Negative Urine Blood Negative Urine Nitrite Negative Urine Bilirubin Negative Urine Urobilinogen 0.2 Ur Leukocyte Esterase Negative Urine Glucose Negative COVID-19 Source Nasal/Nares 05/28/21 05/28/21 05/28/21 16:00 16:00 18:00 WBC 5.67 RBC 4.65 Hgb 14.8 Hct 44.9 MCV 96.6 H MCH 31.8 MCHC 33.0 RDW 12.3 Plt Count 140 MPV 11.8 H Immature Gran % 0.2 Neutrophils % 73.4 Lymphocytes % 15.7 Monocytes % 8.8 Eosinophils % 0.7 Basophils % 1.2 Nucleated RBC % 0 Absolute Neutrophils 4.16 Absolute Lymphocytes 0.89 L Absolute Monocytes 0.50 Absolute Eosinophils 0.04 Absolute Basophils 0.07 APTT 22.8 D-Dimer 323 Sodium Potassium Chloride Carbon Dioxide Anion Gap BUN Creatinine Estimated GFR/1.73 m2 Glucose Calcium Magnesium Total Bilirubin AST ALT Alkaline Phosphatase Troponin I < 50 Total Protein Albumin Urine Color Urine Clarity Urine pH Ur Specific [place] Urine Protein Urine Ketones Urine Blood Urine Nitrite Urine Bilirubin Urine Urobilinogen Ur Leukocyte Esterase Urine Glucose COVID-19 Source Last Vital Signs Temp 36.4 C L 05/28/21 19:22 Pulse 68 05/28/21 19:22 Resp 13 05/28/21 19:22 BP 122/77 05/28/21 19:22 Pulse Ox 96 05/28/21 19:22 PAWSS Have you Been Recently Intoxicated or Drunk Within the Last 30 days?: No Have you Ever Experienced Previous Episodes of Alcohol Withdrawal?: No Have you ever Experienced Withdrawal Seizures?: No Have you ever Experienced Delirium Tremens(DT)s?: No Have you ever undergone Alcohol Rehabilitation Treatment (i.e, inpt ot outpatient treatment programs)?: No Have you ever Experienced Blackouts?: No Have you ever Combined Alcohol with other Downers within the last 90 days?: No Have you ever Combined Alcohol with any other Substance of Abuse during the last 90 days?: No Positive Blood Alcohol level on Presentation? [PCS.BAL]: No Evidence of Increased Autonomic Activity (i.e. HR>120, tremor, sweating, agitation, nausea)?: No Result: 0
[2021-05-28 20:21] LABS: COVID-19 PCR Negative (Negative)
[2021-05-28] MEDS: Sulfameth/Trimeth DS TAB 1 TAB PO (21:08)
[2021-05-28] MEDS: Gabapentin 100 MG CAP 200 MG PO (21:08)
[2021-05-28] MEDS: Enoxaparin 40 MG/0.4 ML SYR SC (21:08)
[2021-05-28 21:16] LABS: Creatine Kinase 73 U/L (39-308)
[2021-05-28 21:26] LABS: TSH (W/Ref FT4) 1.92 uIU/mL (0.36-3.74)
[2021-05-29] MEDS: Mylanta Suspension 30 ML CUP PO (00:01)
[2021-05-29 03:37] VITALS: BP 112/66; PULSE 66; RESP 18; TEMP 37.1; O2SAT 97
[2021-05-29 07:00] VITALS: PULSE 75
[2021-05-29 07:27] LABS: HGB 14.7 g/dL (13.5-17.5); MCH 31.6 pg (27.0-33.0); MCHC 33.4 % (32.0-36.0); MCV 94.6 fL (80-95); MPV 12.3 fL (8.0-11.0); Platelet Count 134 10^3/uL (130-400); RBC 4.65 10^6/uL (4.36-5.78); RDW 12.3 % (11.8-14.1); RDW-SD 43.1 fL; WBC 5.82 10^3/uL (4.4-10.8)
[2021-05-29 07:46] LABS: Troponin I < 50 ng/L (<or=60)
[2021-05-29 07:47] LABS: Anion Gap 8.7 mmol/L (3-11); BUN 25 mg/dL (7-18); CO2 25.3 mmol/L (21.0-32.0); CREATININE 1.5 mg/dL (0.70-1.30); Calcium 8.7 mg/dL (8.5-10.1); Chloride 105 mmol/L (98-107); Estimated GFR 46.13 (mL/min/1.73m2); Glucose 100 mg/dL (74-106); Potassium 4.2 mmol/L (3.5-5.1); Sodium 139 mmol/L (136-145)
[2021-05-29] MEDS: Folic Acid 1 MG TAB PO (08:33)
[2021-05-29] MEDS: Aspirin 81 MG CHEW PO (08:33)
[2021-05-29 08:48] VITALS: BP 134/86; PULSE 73; RESP 18; TEMP 36.6; O2SAT 99
--- NOTE | 2021-05-29 09:50 | DSE_ITS ---
Date of service: 05/29/21 Time of Service: 09:50 DS: Diagnosis Discharge Diagnosis (1) Chest pain: Status: Acute (2) Lightheadedness: Status: Acute (3) Elevated serum creatinine: Status: Acute Discharge Plan Disposition Patient Disposition: HOME Condition: Stable Discharge Details Reason For Visit: Chest Pain, Lightheadedness Admit Date/Time: 05/28/21 18:57 Admit Provider: Jhonny Mccain Attending Provider: Jhonny Mccain Primary Care Provider: Monica Sol Hospital Course Hospital Course: This 70-year-old male who presented to the ED with weakness, lightheadedness and some chest discomfort. He has a history of atrial fibrillation which was t reated with flecainide and has been stable since then. He has not been noted to have any recurrent atrial fibrillation. 2 days ago he was shoveling some snow but he says it was not too difficult. He was not feeling too stressed from this and about 2 hours later he felt fatigued and lightheaded with some blurry vision. His checked his oxygen saturations and they varied from 86% to 98%. She checked herself on the same pulse oximeter and her numbers are perfectly normal. He did not feel short of breath nor was he having any chest discomfort at that time. He said he had only shoveled for about 15 minutes. They talked to their doctor's office and it was elected to watch his symptoms and to come the emergency department if his symptoms got worse. Today he felt lightheaded and fatigued. He was having some epigastric and lower chest discomfort that he says he would characterizes as chest cramping. He was not having any diaphoresis, dyspnea, radiation of the pain to his back or jaws or neck. He would not characterize this his pain at all. He is now on day 8 of treatment for epididymitis with Bactrim DS. He was treated for right epididymitis at the [facility] clinic. There is a family history of heart disease with his father having to bypass surgeries and a chest aneurysm surgery. He does not use tobacco and rarely drinks alcohol. 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 He was evaluated emergency department and had 2 - troponins and negative D-dimer. He was noted on monitor to have a run of bigeminy. He was also noted to have an elevated creatinine of 1.7 compared to a baseline of 1.0. He has had 2 coronavirus vaccine doses and is scheduled for the booster in June. He has not been around anyone's been sick. He thinks epididymitis is improving and is currently having only a tingling in his testicle. Overnight rested comfortably with no further chest pain, returned to his baseline. He is eating and drinking well. vitals remained stable. serial troponins remained negative. He will f/u outpatient with his club car attendant. resume his usual medications and return for new or worsening symptoms. discharge discussed with DR Orellana. Home Meds and New Rx's Prescriptions: Continued ascorbic acid (vitamin C) 1,000 mg tablet 4 g PO DAILY RF: 0 omega-3 fatty acids [Fish Oil Concentrate] 1,000 mg capsule 2,000 mg PO DAILY RF: 0 cholecalciferol (vitamin D3) 25 mcg (1,000 unit) capsule 75 mcg PO DAILY PRNRF: 0 magnesium 250 mg tablet 250 mg PO DAILY RF: 0 folic acid 400 mcg tablet 0.8 mg PO DAILY RF: 0 vitamin B complex [Super B-50 Complex] Capsule 1 cap PO DAILY RF: 0 fluticasone propionate [Children's Flonase Allergy Rlf] 50 mcg/actuation spray,suspension 1 spray intranasal DAILY RF: 0 lysine [L-Lysine] 500 mg tablet 1,000 mg PO DAILY RF: 0 turmeric root extract 500 mg capsule 500 mg PO DAILY RF: 0 montelukast [Singulair] 10 mg tablet 10 mg PO QHS RF: 0 nbtgkfi-ahactxxm-bgxwoh-papaya 50 mcg-1 mg- 10 mg-10 mg tablet,chewable 3 tab PO BID RF: 0 flecainide [Tambocor] 50 MG tablet 50 mg PO BID RF: 0 aspirin 81 MG tablet,chewable 81 mg PO DAILY RF: 0 gabapentin 100 mg capsule 200 mg PO HS RF: 0 Discharge Instructions Instructions: Chest Pain (DC), Dehydration (DC) Additional Instructions: resume usual medication as directed. return for new or worsening symptoms drink 6-8 glasses of water daily to stay well hydrated. Stand Alone Forms: Nursing Discharge Form Referrals: Monica Sol [Primary Care Provider] - 06/05/21 11:30 am Ray Navarro [ [facility] STAFF PHYSICIAN] - Activity:: Activity as Tolerated Equipment/Supplies:: No Equipment Needed Diet:: As Tolerated Discharge Orders Discharge Orders: Discharge Order (Routine); Ordered 05/29/21 Ordered By: Monica Marinelli Discharge Data Discharge Date/Time-TO BE ENTERED AT DEPARTURE: 05/29/21 10:44 DS: Summary Time Spent with Patient providing and/or coordinating discharge services: Less than 30 minutes Status at Discharge Functional status at discharge: independent ambulation Overall status at discharge: patient is back to baseline Mental Status: mental status grossly normal Speech and Movement: speech and movement normal Mood: congruent mood Affect: normal affect Exam Const General: cooperative, healthy appearing, comfortable, no acute distress, well developed and well groomed Nutritional Appearance: average body habitus Orientation: alert, awake and oriented x3 HENMT Head: normal to inspection, normocephalic and atraumatic Mouth: oral mucosae normal Neck Neck: normal visual inspection and no lymphadenopathy Thyroid: thyroid normal Chest Chest: normal inspection of the chest Resp Effort & Inspection: normal respiratory effort and able to speak in complete sen tences Auscultation: clear to auscultation bilaterally Cardio Jugular venous pressure: no JVD Rate: regular rate Rhythm: regular rhythm GI Inspection: normal to inspection Palpation: soft, no hepatosplenomegaly, not rigid and nontender Skin General skin exam: no rashes or lesions noted Neuro General: patient alert, patient awake, patient oriented x3 and no focal motor deficits Extrem General: normal to inspection, no pedal edema and no calf tenderness Psych Mental Status: mental status grossly normal Speech and Movement: speech and movement normal Mood: congruent mood Affect: normal affect DS: Data Vitals/I&O Vitals and I&O: Vital Signs Temperature 36.6 C 05/29/21 08:48 Temperature Source Tympanic 05/29/21 08:48 Pulse 73 05/29/21 08:48 Pulse Rhythm Regular 05/29/21 08:40 Pulse 81 05/28/21 16:30 Respiratory Rate 18 05/29/21 08:48 Respiratory Effort 05/29/21 02:44 Respiratory Depth Normal 05/29/21 02:44 Respiratory Pattern Normal 05/29/21 02:44 Blood Pressure 134/86 05/29/21 08:48 Blood Pressure Position Supine 05/28/21 15:32 Pulse Oximetry 99 05/29/21 08:48 Oxygen Delivery Method Room Air 05/29/21 08:48 Oxygen Flow Rate 0 05/29/21 08:48 Pain Level 0 05/29/21 08:48 Intake & Output 05/28/21 05/28/21 05/29/21 11:59 23:59 11:59 Intake Total 500 / 500 Balance 500 / 500 Weight 90.718 kg Intake: IV 500 / 500 Other: Comment per patienthe has been voiding Data Completed and Pending Labs on day of discharge: Labs from last 24 hours 05/29/21 05/29/21 05/29/21 06:50 06:50 06:50 WBC 5.82 RBC 4.65 Hgb 14.7 Hct 44.0 MCV 94.6 MCH 31.6 MCHC 33.4 RDW 12.3 Plt Count 134 MPV 12.3 H Immature Gran % Neutrophils % Lymphocytes % Monocytes % Eosinophils % Basophils % Nucleated RBC % Absolute Neutrophils Absolute Lymphocytes Absolute Monocytes Absolute Eosinophils Absolute Basophils APTT D-Dimer Sodium 139 Potassium 4.2 Chloride 105 Carbon Dioxide 25.3 Anion Gap 8.7 BUN 25 H Creatinine 1.5 H Estimated GFR/1.73 m2 46.13 Glucose 100 Calcium 8.7 Magnesium Total Bilirubin AST ALT Alkaline Phosphatase Creatine Kinase Troponin I < 50 Total Protein Albumin TSH Urine Color Urine Clarity Urine pH Ur Specific [place] Urine Protein Urine Ketones Urine Blood Urine Nitrite Urine Bilirubin Urine Urobilinogen Ur Leukocyte Esterase Urine Glucose COVID-19 Source SARS-CoV-2 (PCR) 05/28/21 05/28/21 05/28/21 20:47 20:47 18:00 WBC RBC Hgb Hct MCV MCH MCHC RDW Plt Count MPV Immature Gran % Neutrophils % Lymphocytes % Monocytes % Eosinophils % Basophils % Nucleated RBC % Absolute Neutrophils Absolute Lymphocytes Absolute Monocytes Absolute Eosinophils Absolute Basophils APTT D-Dimer Sodium Potassium Chloride Carbon Dioxide Anion Gap BUN Creatinine Estimated GFR/1.73 m2 Glucose Calcium Magnesium Total Bilirubin AST ALT Alkaline Phosphatase Creatine Kinase 73 Troponin I < 50 Total Protein Albumin TSH 1.92 Urine Color Urine Clarity Urine pH Ur Specific [place] Urine Protein Urine Ketones Urine Blood Urine Nitrite Urine Bilirubin Urine Urobilinogen Ur Leukocyte Esterase Urine Glucose COVID-19 Source SARS-CoV-2 (PCR) 05/28/21 05/28/21 05/28/21 16:00 16:00 16:00 WBC 5.67 RBC 4.65 Hgb 14.8 Hct 44.9 MCV 96.6 H MCH 31.8 MCHC 33.0 RDW 12.3 Plt Count 140 MPV 11.8 H Immature Gran % 0.2 Neutrophils % 73.4 Lymphocytes % 15.7 Monocytes % 8.8 Eosinophils % 0.7 Basophils % 1.2 Nucleated RBC % 0 Absolute Neutrophils 4.16 Absolute Lymphocytes 0.89 L Absolute Monocytes 0.50 Absolute Eosinophils 0.04 Absolute Basophils 0.07 APTT 22.8 D-Dimer 323 Sodium 139 Potassium 4.5 Chloride 105 Carbon Dioxide 28.2 Anion Gap 5.8 BUN 27 H Creatinine 1.7 H Estimated GFR/1.73 m2 39.93 Glucose 130 H Calcium 8.8 Magnesium 2.1 Total Bilirubin 0.3 AST 26 ALT 44 Alkaline Phosphatase 75 Creatine Kinase Troponin I < 50 Total Protein 7.1 Albumin 4.2 TSH Urine Color Urine Clarity Urine pH Ur Specific [place] Urine Protein Urine Ketones Urine Blood Urine Nitrite Urine Bilirubin Urine Urobilinogen Ur Leukocyte Esterase Urine Glucose COVID-19 Source SARS-CoV-2 (PCR) 05/28/21 05/28/21 16:00 15:36 WBC RBC Hgb Hct MCV MCH MCHC RDW Plt Count MPV Immature Gran % Neutrophils % Lymphocytes % Monocytes % Eosinophils % Basophils % Nucleated RBC % Absolute Neutrophils Absolute Lymphocytes Absolute Monocytes Absolute Eosinophils Absolute Basophils APTT D-Dimer Sodium Potassium Chloride Carbon Dioxide Anion Gap BUN Creatinine Estimated GFR/1.73 m2 Glucose Calcium Magnesium Total Bilirubin AST ALT Alkaline Phosphatase Creatine Kinase Troponin I Total Protein Albumin TSH Urine Color Yellow Urine Clarity Clear Urine pH 6.0 Ur Specific [place] >= 1.030 H Urine Protein Negative Urine Ketones Negative Urine Blood Negative Urine Nitrite Negative Urine Bilirubin Negative Urine Urobilinogen 0.2 Ur Leukocyte Esterase Negative Urine Glucose Negative COVID-19 Source Nasal/Nares SARS-CoV-2 (PCR) Negative PFSH All Active Problems (Updated 05/28/21 @ 20:25 by Jhonny Mccain MD) Elevated serum creatinine (Acute) Chest pain (Acute) Lightheadedness (Acute) Shingles (Acute) BPH (benign prostatic hyperplasia) (Chronic) Erectile dysfunction (Acute) Anxiety disorder (Acute) Tinnitus, bilateral (Acute) Osteoarthritis cervical spine (Acute) RLS (restless legs syndrome) (Acute) Afib (Chronic) 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
[2021-05-29 10:38] VITALS: PULSE 72
== END 2021-05-29 10:44 | disposition home or self-care (01) ==
LOC: ER 18:59 → MS 20:16
PROVIDERS: Admitting Provider Family Medicine; Emergency Provider Student in an Organized Health Care Education/Training Program; PCP Nurse Practitioner Family; Visit Provider Family Medicine
DX: R07.89 Other chest pain (principal); R42 Dizziness and giddiness; R53.1 Weakness; R94.31 Abnormal electrocardiogram [ECG] [EKG]; Z20.822 Contact with and (suspected) exposure to COVID-19; N40.0 Benign prostatic hyperplasia without lower urinary tract symptoms; F41.9 Anxiety disorder, unspecified; G25.81 Restless legs syndrome; I48.91 Unspecified atrial fibrillation; M17.0 Bilateral primary osteoarthritis of knee; N45.1 Epididymitis; Z82.49 Family history of ischemic heart disease and other diseases of the circulatory system
CPT/HCPCS: 36415; 80048; 80053; 82550; 85027; 87635; 93005; 96360; 96372; 99285; J1650; 71046; 81003; 83735; 84443; 84484; 85025; 85379; 85730; 93010; 99217; 99220; 99284; G0378

== ENCOUNTER 2024-06-09 07:37 | Observation (INO) | payer MEDICARE, SELFPAY ==
[2024-06-09] VITALS (54 sets, daily range): BP systolic 119–175; BP diastolic 52–115; PULSE 72–147; RESP 7–37; TEMP 36.7–37.5; O2SAT 93–99
--- NOTE | 2024-06-09 07:30 | RT.EKG_ITS ---
APPROVED REPORT Exam: Resting ECG Reason for Exam: Tachy Patient Location: E HR:140 bpm ECG Measurements Heart Rate 140 AXIS ID [id number] P [id number] QRSd 87 QRS -38 QT 310 T 84 QTc 473 Conclusion Atrial fibrillation...? atrial activity Ventricular premature complex...V complex w/ short R-R interval Left axis deviation...QRS axis (-30,-90) Repolarization abnormality, prob rate related...ST dep, T neg, tachycardia
[2024-06-09 07:59] LABS: Abs Immature Grans 0.02 10^3/uL (0.0-0.06); Absolute Eosinophil Count 0.45 10^3/uL (0.0-0.7); Absolute Lymphocyte Count 1.86 10^3/uL (1.2-3.4); Absolute Monocyte Count 0.47 10^3/uL (0.1-0.8); Absolute Neutrophil Count 4.08 10^3/uL (1.2-6.7); Basophils % 1.4 %; Eosinophils % 6.4 %; HCT 45.6 % (40.0-50.0); HGB 15.5 g/dL (13.5-17.5); Immature Grans % 0.3 %; Lymphocytes % 26.6 %; MCH 32.1 pg (27.0-33.0); MCV 94 fL (80-95); MPV 11.1 fL (8.0-11.0); Monocytes % 6.7 %; Neutrophils % 58.6 %; Platelet Count 143 10^3/uL (130-400); RBC 4.83 10^6/uL (4.36-5.78); RDW 12.4 % (11.8-14.1); RDW-SD 43.3 fL; WBC 6.98 10^3/uL (4.4-10.8)
[2024-06-09 08:23] LABS: ALT 18 U/L (16-63); AST 15 U/L (15-37); Alkaline Phosphatase 80 U/L (46-116); BUN 20 mg/dL (7-18); Bilirubin, Total 0.53 mg/dL (0.2-1.0); CREATININE 1.3 mg/dL (0.70-1.30); Calcium 9.3 mg/dL (8.5-10.1); Chloride 105 mmol/L (98-107); Estimated GFR 57.65 (mL/min/1.73m2); Glucose 106 mg/dL (74-106); Magnesium 1.9 mg/dL (1.8-2.4); Potassium 3.8 mmol/L (3.5-5.1); Sodium 142 mmol/L (136-145); TSH (W/Ref FT4) 3.99 uIU/mL (0.36-3.74); Total Protein 7.4 g/dL (6.4-8.2); Troponin I 6 ng/L (<or=76)
--- NOTE | 2024-06-09 08:33 | ED.GENADUL_ITS ---
Discharge Plan Disposition Patient Disposition: Admit to [facility] Condition: Serious Discharge Details Clinical Impression: Atrial fibrillation with rapid ventricular response Admit Date/Time: 06/09/24 11:55 Admit Provider: Lawrence Park Attending Provider: Lawrence Park Primary Care Provider: Monica Sol ED Provider: Wenceslao Solares Discharge Data Discharge Date/Time-TO BE ENTERED AT DEPARTURE: 06/09/24 12:50 HPI General Mode of arrival: ambulatory . Date/Time Provider Initiated Documentation: 06/09/24 07:50 . Limitations to Documentation: no limitations . Information obtained by: patient and family . HPI Narrative: 73-year-old male with history of atrial fibrillation, anxiety disorder, here with chief complaint of arrhythmia. Patient notes last night he started to experience a heavy arrhythmia that was intermittent. The sensation he felt was different from his typical intermittent sensation of atrial fibrillation. Sensation was moderate. Last night he also noticed some intermittent episodes of bradycardia with heart rate in the 30s. He notes that over the past few years she has had very few episodes of atrial fibrillation and that it has been well-controlled with flecainide. Over the past month or so he has had 4 short, 1 hour episodes of sensation of atrial fibrillation. Patient denies associated chest pain or shortness of breath today. He does note fatigue with any exertional activity since last night. No leg swelling or calf pain. Patient denies recent heavy caffeine intake. Patient does drink alcohol infrequently. No drug use. Related Data Home Medications ?Medication ?Instructions ?Recorded ?Confirmed aspirin 81 mg chewable tablet 81 mg PO DAILY PRN 06/17/15 06/09/24 flecainide 50 mg tablet (Tambocor) 50 mg PO BID 06/17/15 06/09/24 gabapentin 100 mg capsule 200 mg PO HS 09/23/20 06/09/24 ascorbic acid (vitamin C) 1,000 mg 4 g PO DAILY 09/24/20 06/09/24 tablet cholecalciferol (vitamin D3) 25 75 mcg PO DAILY PRN 09/24/20 06/09/24 mcg (1,000 unit) capsule folic acid 400 mcg tablet 0.8 mg PO DAILY 09/24/20 06/09/24 lysine 500 mg tablet (L-Lysine) 1,000 mg PO DAILY PRN 09/24/20 06/09/24 magnesium 250 mg tablet 250 mg PO DAILY 09/24/20 06/09/24 omega-3 fatty acids 1,000 mg 2,000 mg PO DAILY 09/24/20 06/09/24 capsule (Fish Oil Concentrate) turmeric root extract 500 mg 500 mg PO DAILY 09/24/20 06/09/24 capsule vitamin B complex (Super B-50 1 cap PO DAILY 09/24/20 06/09/24 Complex capsule) apixaban 5 mg tablet (Eliquis) 5 mg PO BID #60 tabs 06/10/24 Previous Rx's ?Medication ?Instructions ?Recorded apixaban 5 mg tablet (Eliquis) 5 mg PO BID #60 tabs 06/10/24 Allergies Allergy/AdvReac Type Severity Reaction Status Date / Time No Known Allergies Allergy Verified 05/28/21 15:47 General Stated Complaint: Palpitatns ZION: 2 Review of Systems All systems reviewed & are unremarkable except as noted in HPI and below Constitutional Constitutional: Denies fever(s) Cardiovascular Cardiovascular: Reports as per HPI Exam Const General: cooperative and no acute distress HENMI Mouth: moist mucous membranes Eyes Conjunctivae: normal conjunctivae Sclera: normal sclerae Neck Neck: trachea midline and supple Resp Auscultation: clear to auscultation bilaterally, no rales, no rhonchi and no wheezes Cardio Rate: tachycardic Rhythm: abnormal rhythm GI Palpation: soft, not firm, no guarding, no masses, not rigid and nontender Skin General skin exam: no rashes or lesions noted Neuro General: patient alert, patient awake and tone normal Extrem General: no calf tenderness and no edema Psych Appearance: grossly normal Mental Status: mental status grossly normal Course Vital Signs Vital signs: Vital Signs Temperature 36.9 C 06/09/24 07:41 Pulse 147 H 06/09/24 07:41 Respiratory Rate 15 06/09/24 07:41 Blood Pressure 175/115 H 06/09/24 07:41 Pulse Oximetry 98 06/09/24 07:41 Temperature 36.9 C 06/09/24 07:41 Pulse 147 H 06/09/24 07:41 Respiratory Rate 15 06/09/24 07:41 Blood Pressure 175/115 H 06/09/24 07:41 Pulse Oximetry 98 06/09/24 07:41 Oxygen Delivery Method Room Air 06/09/24 07:41 Oxygen Flow Rate 0 06/09/24 07:41 Pain Level 0 06/09/24 07:41 Lab/Test Results Lab/Test Results: Laboratory Tests Range/Units 06/09/24 07:50 WBC (4.4-10.8) 10^3/uL 6.98 RBC (4.36-5.78) 10^6/uL 4.83 Hgb (13.5-17.5) g/dL 15.5 Hct (40.0-50.0) % 45.6 MCV (80-95) fL 94 MCH (27.0-33.0) pg 32.1 MCHC (32.0-36.0) % 34.0 RDW (11.8-14.1) % 12.4 Plt Count (130-400) 10^3/uL 143 MPV (8.0-11.0) fL 11.1 H Immature Gran % % 0.3 Neutrophils % % 58.6 Lymphocytes % % 26.6 Monocytes % % 6.7 Eosinophils % % 6.4 Basophils % % 1.4 Nucleated RBC % (0.0-0.3) % 0.0 Absolute Neutrophils (1.2-6.7) 10^3/uL 4.08 Absolute Lymphocytes (1.2-3.4) 10^3/uL 1.86 Absolute Monocytes (0.1-0.8) 10^3/uL 0.47 Absolute Eosinophils (0.0-0.7) 10^3/uL 0.45 Absolute Basophils (0.0-0.2) 10^3/uL 0.10 Sodium (136-145) mmol/L 142 Potassium (3.5-5.1) mmol/L 3.8 Chloride (98-107) mmol/L 105 Carbon Dioxide (21.0-32.0) mmol/L 27.0 Anion Gap (3-11) mmol/L 10.0 BUN (7-18) mg/dL 20 H Creatinine (0.70-1.30) mg/dL 1.3 Est GFR (CKD-EPI 2020) (mL/min/1.73m2) 57.65 Glucose (74-106) mg/dL 106 Calcium (8.5-10.1) mg/dL 9.3 Magnesium (1.8-2.4) mg/dL 1.9 Total Bilirubin (0.2-1.0) mg/dL 0.53 AST (15-37) U/L 15 ALT (16-63) U/L 18 Alkaline Phosphatase (46-116) U/L 80 Troponin I (<or=76) ng/L 6 Total Protein (6.4-8.2) g/dL 7.4 Albumin (3.4-5.0) g/dL 4.0 TSH (0.36-3.74) uIU/mL 3.99 H Medical Decision Making 835 --73-year-old male with history of typically well-controlled atrial fibrillation, on flecainide, not on anticoagulation, here with intermittent arrhythmia since last night. Patient tachycardic at times and then intermittently bradycardic as well. Patient is tachycardic with irregular rhythm and hypertensive on arrival. He saturating well no respiratory distress. 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 EKG was reviewed and interpreted by me: Please report, atrial fibrillation with RVR 140 bpm, PVC noted, left axis deviation noted. Consider electrolyte abnormality and thyroid dysfunction. Will check labs. Consider ACS. Nonischemic EKG. Will obtain troponin. Plan discussed case with cardiology. 903 --Case discussed with Dr. Gurrola, she recommends starting Eliquis and Toprol XL 50 mg and reassessing. 950 --patient reassessed and in sinus rhythm at this time. He is questioning need for Eliquis and Toprol. I explained reasoning to the patient patient also notes he has been taking flecainide not as prescribed but only at night. I spoke with Dr. Gurrola again and updated her and she recommends starting AV iris agent in addition to the flecainide. I spoke with Dr. Park, on-call hospitalist, discussed ED presentation and course, he will admit the patient. Lab Data Lab results reviewed: Yes I reviewed the patient's lab results. Labs: Laboratory Tests Range/Units 06/09/24 06/09/24 07:50 09:07 WBC (4.4-10.8) 10^3/uL 6.98 RBC (4.36-5.78) 10^6/uL 4.83 Hgb (13.5-17.5) g/dL 15.5 Hct (40.0-50.0) % 45.6 MCV (80-95) fL 94 MCH (27.0-33.0) pg 32.1 MCHC (32.0-36.0) % 34.0 RDW (11.8-14.1) % 12.4 Plt Count (130-400) 10^3/uL 143 MPV (8.0-11.0) fL 11.1 H Immature Gran % % 0.3 Neutrophils % % 58.6 Lymphocytes % % 26.6 Monocytes % % 6.7 Eosinophils % % 6.4 Basophils % % 1.4 Nucleated RBC % (0.0-0.3) % 0.0 Absolute Neutrophils (1.2-6.7) 10^3/uL 4.08 Absolute Lymphocytes (1.2-3.4) 10^3/uL 1.86 Absolute Monocytes (0.1-0.8) 10^3/uL 0.47 Absolute Eosinophils (0.0-0.7) 10^3/uL 0.45 Absolute Basophils (0.0-0.2) 10^3/uL 0.10 Sodium (136-145) mmol/L 142 Potassium (3.5-5.1) mmol/L 3.8 Chloride (98-107) mmol/L 105 Carbon Dioxide (21.0-32.0) mmol/L 27.0 Anion Gap (3-11) mmol/L 10.0 BUN (7-18) mg/dL 20 H Creatinine (0.70-1.30) mg/dL 1.3 Est GFR (CKD-EPI 2020) (mL/min/1.73m2) 57.65 Glucose (74-106) mg/dL 106 Calcium (8.5-10.1) mg/dL 9.3 Magnesium (1.8-2.4) mg/dL 1.9 Total Bilirubin (0.2-1.0) mg/dL 0.53 AST (15-37) U/L 15 ALT (16-63) U/L 18 Alkaline Phosphatase (46-116) U/L 80 Troponin I (<or=76) ng/L 6 6 Total Protein (6.4-8.2) g/dL 7.4 Albumin (3.4-5.0) g/dL 4.0 TSH (0.36-3.74) uIU/mL 3.99 H Free T4 (0.76-1.46) ng/dL 1.02 Quality:SDOH Health Related Social Needs: No Data to Display PFSH All Active Problems (Updated 06/11/24 @ 00:05 by ANG DELANEY) Atrial fibrillation with rapid ventricular response (Acute) Elevated serum creatinine (Acute) Shingles (Acute) BPH (benign prostatic hyperplasia) (Chronic) Erectile dysfunction (Acute) Anxiety disorder (Acute) Tinnitus, bilateral (Acute) Osteoarthritis cervical spine (Acute) RLS (restless legs syndrome) (Acute) 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) Medical History Chest pain Social History Smoking/Tobacco Use Status: Never Smoking risk assessment performed?: Yes Alcohol Intake: current Alcohol Intake frequency: holidays/special occasions only Drug use: Never Substance use type: does not use Housing: house Do you feel safe at home: Yes Do you feel safe in your relationship?: Yes
[2024-06-09 08:40] LABS: FREE T4 1.02 ng/dL (0.76-1.46)
[2024-06-09 09:32] LABS: Troponin I 6 ng/L (<or=76)
[2024-06-09 11:22] LABS: Troponin I 6 ng/L (<or=76)
--- NOTE | 2024-06-09 12:40 | W.PC.ACHO ---
Registration Status: Primary Language: Preferred Language: ED Information & Data Chief Complaint Shaggy 06/09/24 08:40 Triage Note pt with hx A-Fib. went into 06/09/24 07:41 a-fib last night. states 130 's and 180's. continues today. heavy arrhythmia. states usually goes away in an hour or 2 but not this time. denies SOB. Medical / Surgical History (Last Reviewed 06/09/24 @ 08:37 by Wenceslao Solares MD) Chest pain Most Recent Vital Signs Temperature 36.9 C 06/09/24 07:41 Pulse 79 06/09/24 12:31 Pulse 78 06/09/24 12:32 Respiratory Rate 11 L 06/09/24 12:32 Blood Pressure 142/79 H 06/09/24 12:31 Blood Pressure Mean 97 06/09/24 12:31 Pulse Oximetry 93 06/09/24 12:32 Oxygen Delivery Method Room Air 06/09/24 07:41 Oxygen Flow Rate 0 06/09/24 07:41 Pain Level 0 06/09/24 07:41 Allergies No Known Allergies Allergy (Verified 05/28/21 15:47) Precautions Isolation Standard precaution 06/09/24 08:14 IV IV Catheter Type [Right Saline Lock Antecubital] IV Catheter Gauge [Right 18 Antecubital] Diagnostics 06/09/24 06/09/24 06/09/24 Range/Units 10:55 09:07 07:50 WBC 6.98 (4.4-10.8) 10^3/uL RBC 4.83 (4.36-5.78) 10^6/uL Hgb 15.5 (13.5-17.5) g/dL Hct 45.6 (40.0-50.0) % MCV 94 (80-95) fL MCH 32.1 (27.0-33.0) pg MCHC 34.0 (32.0-36.0) % RDW 12.4 (11.8-14.1) % Plt Count 143 (130-400) 10^3/uL MPV 11.1 H (8.0-11.0) fL Immature Gran % 0.3 % Neutrophils % 58.6 % Lymphocytes % 26.6 % Monocytes % 6.7 % Eosinophils % 6.4 % Basophils % 1.4 % Nucleated RBC % 0.0 (0.0-0.3) % Absolute Neutrophils 4.08 (1.2-6.7) 10^3/uL Absolute Lymphocytes 1.86 (1.2-3.4) 10^3/uL Absolute Monocytes 0.47 (0.1-0.8) 10^3/uL Absolute Eosinophils 0.45 (0.0-0.7) 10^3/uL Absolute Basophils 0.10 (0.0-0.2) 10^3/uL Sodium 142 (136-145) mmol/L Potassium 3.8 (3.5-5.1) mmol/L Chloride 105 (98-107) mmol/L Carbon Dioxide 27.0 (21.0-32.0) mmol/L Anion Gap 10.0 (3-11) mmol/L BUN 20 H (7-18) mg/dL Creatinine 1.3 (0.70-1.30) mg/dL Est GFR (CKD-EPI 2020) 57.65 (mL/min/1.73m2) Glucose 106 (74-106) mg/dL Calcium 9.3 (8.5-10.1) mg/dL Magnesium 1.9 (1.8-2.4) mg/dL Total Bilirubin 0.53 (0.2-1.0) mg/dL AST 15 (15-37) U/L ALT 18 (16-63) U/L Alkaline Phosphatase 80 (46-116) U/L Troponin I 6 6 6 (<or=76) ng/L Total Protein 7.4 (6.4-8.2) g/dL Albumin 4.0 (3.4-5.0) g/dL TSH 3.99 H (0.36-3.74) uIU/mL Free T4 1.02 (0.76-1.46) ng/dL Intake and Output - 24 Hour Total 06/09/24 07:37 thru 06/09/24 08:21 Intake Total 10 Output Total 500 Balance -490 Weight 89.811 kg Intake: IV 10 Output: Urine 500 Falls Risk Assessment History of Falls No History 06/09/24 08:14 Contributing Factors No Factors 06/09/24 08:14 Ambulatory Aids Independent 06/09/24 08:14 Tubes/Lines None 06/09/24 08:14 Gait Evaluation No gait disturbance 06/09/24 08:14 Cognition No cognitive impairment 06/09/24 08:14 Fall Total Score 0 06/09/24 08:14 Level of Risk Standard/Low Risk 06/09/24 08:14 v v v v v v v v v Sending and/or Receiving Nurses: Please use comment section below to note any information pertinent to the patient hand-off not included above. Information / Comments: Report received from: BIJAN Whiteside from ED. Initially called at 1155, Miesha unavailable. Return call, this RN unavailable. Nurse to Nurse given at 1235.
--- NOTE | 2024-06-09 14:10 | HPE_ITS ---
Date of service: 06/09/24 Time of Service: 14:10 Assessment and Plan Assessment and plan (1) Afib: Status: Chronic Assessment and plan: Patient will be put on evidently a rate and rhythm control for his A-fib as well as Eliquis. Monitor overnight on telemetry plan to DC in the a.m. (2) Atrial fibrillation with rapid ventricular response: Status: Acute History of Present Illness History of Present Illness Chief Complaint: heart palpitations Narrative: This is a 73-year-old gentleman who enjoys good health but does have a history of atrial fibrillation which started approximately 12 years ago. Originally he was on a beta-bear but for what ever reason this was switched over to rate control with flecainide 50 mg p.o. twice daily. Patient self DC'd this medication for unknown reason and is only taking flecainide 50 daily. Patient now develops atrial fibrillation with tachycardia. While he was in the ED though it was noted that he did have some bradycardia. The ED physician did discuss the case with Dr. Gurrola of the cardiology service who recommended Eliquis and Toprol XL 50 mg and reassessing. Considering the patient had a run of bradycardia decision to admit overnight for telemetry was made by the ED physician Dr. Solares. Considering this as well as starting of Eliquis I believe would be prudent to at least monitor him overnight. PFSH All Active Problems (Updated 06/09/24 @ 09:55 by Wenceslao Solares MD) Atrial fibrillation with rapid ventricular response (Acute) Elevated serum creatinine (Acute) Shingles (Acute) BPH (benign prostatic hyperplasia) (Chronic) Erectile dysfunction (Acute) Anxiety disorder (Acute) Tinnitus, bilateral (Acute) Osteoarthritis cervical spine (Acute) RLS (restless legs syndrome) (Acute) Afib (Chronic) 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) Medical History Chest pain Social History Smoking/Tobacco Use Status: Never Smoking risk assessment performed?: Yes Alcohol Intake: current Alcohol Intake frequency: holidays/special occasions only Drug use: Never Substance use type: does not use Housing: house Do you feel safe at home: Yes Do you feel safe in your relationship?: Yes Meds Allergies and Home Medications Allergies Allergy/AdvReac Type Severity Reaction Status Date / Time No Known Allergies Allergy Verified 05/28/21 15:47 Home Medications ?Medication ?Instructions ?Recorded ?Confirmed ?Type aspirin 81 mg chewable tablet 81 mg PO DAILY PRN 06/17/15 06/09/24 History flecainide 50 mg tablet (Tambocor) 50 mg PO BID 06/17/15 06/09/24 History gabapentin 100 mg capsule 200 mg PO HS 09/23/20 06/09/24 History ascorbic acid (vitamin C) 1,000 mg 4 g PO DAILY 09/24/20 06/09/24 History tablet cholecalciferol (vitamin D3) 25 75 mcg PO DAILY PRN 09/24/20 06/09/24 History mcg (1,000 unit) capsule folic acid 400 mcg tablet 0.8 mg PO DAILY 09/24/20 06/09/24 History lysine 500 mg tablet (L-Lysine) 1,000 mg PO DAILY PRN 09/24/20 06/09/24 History magnesium 250 mg tablet 250 mg PO DAILY 09/24/20 06/09/24 History omega-3 fatty acids 1,000 mg 2,000 mg PO DAILY 09/24/20 06/09/24 History capsule (Fish Oil Concentrate) turmeric root extract 500 mg 500 mg PO DAILY 09/24/20 06/09/24 History capsule vitamin B complex (Super B-50 1 cap PO DAILY 09/24/20 06/09/24 History Complex capsule) Exam Narrative Exam Narrative: Head eyes ears nose and throat: Normocephalic atraumatic mucous membranes moist extraocular motions intact pupils equal round reactive to light Neck: No lymphadenopathy no JVD no thyromegaly Cardiovascular: Currently regular rate and rhythm no murmur rubs gallops Lungs: Clear to auscultation bilaterally with good air exchange no accessory muscle use Abdomen: Soft nontender nondistended bowel sounds active Extremities: No sinus clubbing or edema bilaterally in upper and lower extremities Neurologic: Cranial nerves II through XII intact as tested reflexes in upper lower extremity normal as tested Psych: Alert and oriented x 3 giving a linear history Results Labs 06/09/24 07:50 06/09/24 07:50 Labs: Laboratory Results - last 24 hr 06/09/24 06/09/24 06/09/24 07:50 09:07 10:55 WBC 6.98 RBC 4.83 Hgb 15.5 Hct 45.6 MCV 94 MCH 32.1 MCHC 34.0 RDW 12.4 Plt Count 143 MPV 11.1 H Immature Gran % 0.3 Neutrophils % 58.6 Lymphocytes % 26.6 Monocytes % 6.7 Eosinophils % 6.4 Basophils % 1.4 Nucleated RBC % 0.0 Absolute Neutrophils 4.08 Absolute Lymphocytes 1.86 Absolute Monocytes 0.47 Absolute Eosinophils 0.45 Absolute Basophils 0.10 Sodium 142 Potassium 3.8 Chloride 105 Carbon Dioxide 27.0 Anion Gap 10.0 BUN 20 H Creatinine 1.3 Est GFR (CKD-EPI 2020) 57.65 Glucose 106 Calcium 9.3 Magnesium 1.9 Total Bilirubin 0.53 AST 15 ALT 18 Alkaline Phosphatase 80 Troponin I 6 6 6 Total Protein 7.4 Albumin 4.0 TSH 3.99 H Free T4 1.02 Last Vital Signs Temp 36.7 C 06/09/24 12:58 Pulse 78 06/09/24 12:58 Resp 16 06/09/24 12:58 BP 153/78 H 06/09/24 12:58 Pulse Ox 99 06/09/24 12:58 PAWSS Have you Been Recently Intoxicated or Drunk Within the Last 30 days?: No Have you Ever Experienced Previous Episodes of Alcohol Withdrawal?: No Have you ever Experienced Withdrawal Seizures?: No Have you ever Experienced Delirium Tremens(DT)s?: No Have you ever undergone Alcohol Rehabilitation Treatment (i.e, inpt ot outpatient treatment programs)?: No Have you ever Experienced Blackouts?: No Have you ever Combined Alcohol with other Downers within the last 90 days?: No Have you ever Combined Alcohol with any other Substance of Abuse during the last 90 days?: No Positive Blood Alcohol level on Presentation? [PCS.BAL]: No Evidence of Increased Autonomic Activity (i.e. HR>120, tremor, sweating, agitation, nausea)?: No Result: 0 Time Spent Time spent with Patient: 40-54 minutes Time was spent: preparing to see the patient(eg.review tests), obtaining and/or reviewing separately otained hiistory, ordering medications,tests, procedures, referring, communicating with other health health care coach, indepentently interpreting results, counseling the patient and care coordination
[2024-06-09] MEDS: Cholecalciferol (Vitamin D3) 1,000 UNIT TAB 3000 UNITS PO (17:13)
[2024-06-09] MEDS: Apixaban 5 MG TAB PO (20:38)
[2024-06-09] MEDS: Gabapentin 100 MG CAP 200 MG PO (20:38)
[2024-06-09] MEDS: Normal Saline Flush 10 ML SYR IVP (20:39)
[2024-06-10] MEDS: LORazepam 0.5 MG TAB PO (01:19)
--- NOTE | 2024-06-10 06:30 | RT.EKG_ITS ---
APPROVED REPORT Exam: Resting ECG Reason for Exam: HR>140 Patient Location: I HR:116 bpm ECG Measurements Heart Rate 116 AXIS NV [id number] P [id number] QRSd 93 QRS -38 QT 346 T 78 QTc 481 Conclusion Atrial flutter with predominant 3:1 AV block...A-rate 319, multiple Ps Left axis deviation...QRS axis (-30,-90) Diffuse ST-T abnormalities
[2024-06-10 06:40] VITALS: BP 149/98; PULSE 78; RESP 16; TEMP 36.8; O2SAT 98
[2024-06-10 06:50] LABS: Abs Immature Grans 0.02 10^3/uL (0.0-0.06); Absolute Basophil Count 0.12 10^3/uL (0.0-0.2); Absolute Eosinophil Count 0.36 10^3/uL (0.0-0.7); Absolute Lymphocyte Count 1.92 10^3/uL (1.2-3.4); Absolute Monocyte Count 0.46 10^3/uL (0.1-0.8); Basophils % 1.6 %; Eosinophils % 4.9 %; HCT 40.9 % (40.0-50.0); HGB 14.2 g/dL (13.5-17.5); Immature Grans % 0.3 %; MCH 32.3 pg (27.0-33.0); MCHC 34.7 % (32.0-36.0); MCV 93 fL (80-95); MPV 11.4 fL (8.0-11.0); Monocytes % 6.2 %; Platelet Count 144 10^3/uL (130-400); RDW 12.5 % (11.8-14.1); RDW-SD 43.1 fL; WBC 7.38 10^3/uL (4.4-10.8)
[2024-06-10] MEDS: Metoprolol CR 50 MG TABCR PO (06:52)
[2024-06-10 07:30] LABS: ALT 15 U/L (16-63); AST 12 U/L (15-37); Albumin 3.4 g/dL (3.4-5.0); Alkaline Phosphatase 69 U/L (46-116); Anion Gap 6.6 mmol/L (3-11); BUN 23 mg/dL (7-18); Bilirubin, Total 0.38 mg/dL (0.2-1.0); CO2 27.4 mmol/L (21.0-32.0); CREATININE 1.2 mg/dL (0.70-1.30); Calcium 8.8 mg/dL (8.5-10.1); Chloride 110 mmol/L (98-107); Estimated GFR 63.46 (mL/min/1.73m2); Glucose 95 mg/dL (74-106); Potassium 3.7 mmol/L (3.5-5.1); Sodium 144 mmol/L (136-145); Total Protein 6.4 g/dL (6.4-8.2)
--- NOTE | 2024-06-10 07:36 | NUR.NOTE ---
Nursing Note: Patient seen for bedside report with Dagoberto THAKKAR. Patient states he feels well and is asymptomatic; noted patient converted out of Atrial Fibrillation on court monitor. Patient stated his is on his way over, and he is going to leave AMA as soon as his arrives to the unit; Discussed with the patient the risks of atrial fibrillation. Patient was then seen by Dr. Park, who is aware.
--- NOTE | 2024-06-10 07:47 | DSE_ITS ---
Date of service: 07/21/24 Time of Service: 17:28 DS: Diagnosis Discharge Diagnosis (1) Afib: Status: Deleted (2) Atrial fibrillation with rapid ventricular response: Status: Acute Discharge Plan Disposition Patient Disposition: Home Condition: Improving Discharge Details Reason For Visit: Afib Admit Date/Time: 06/09/24 11:55 Admit Provider: Lawrence Park Attending Provider: Lawrence Park Primary Care Provider: Monica [facility] Course Hospital Course: This is a 73-year-old gentleman who enjoys fairly good health but does have a history of atrial fibrillation. The patient did stop taking his morning dose of flecainide and since then has had periods of A-fib with RVR. Came into the ED yesterday because of heavy palpitations per his words. Patient was admitted because he did have a run of bradycardia actually and we wanted to monitor him overnight. Patient stated that he was going to leave AMA but I am going to discharge him. He was doing well with the flecainide 50 mg p.o. twice daily so organ to restart this and will also add some Eliquis at least in the short-term as he appears to have paroxysmal atrial fibrillation. Patient states that he has a cardiology appointment in July. Of note, the patient does not have anemia, hyperthyroidism, nor does he take any stimulant caffeine. Let me know that the patient did have a run of tachycardia which responded to beta-blockers. Recent are not sending him home on beta-blockers because he had good control with his flecainide until he is decreased the dose by half, and with his full dose he should have good control Home Meds and New Rx's Prescriptions: New Eliquis 5 mg Tablet 5 mg PO BID Qty: 60 0RF Continued ascorbic acid (vitamin C) 1,000 mg tablet 4 g PO DAILY omega-3 fatty acids [Fish Oil Concentrate] 1,000 mg capsule 2,000 mg PO DAILY cholecalciferol (vitamin D3) 25 mcg (1,000 unit) capsule 75 mcg PO DAILY PRN magnesium 250 mg tablet 250 mg PO DAILY folic acid 400 mcg tablet 0.8 mg PO DAILY vitamin B complex [Super B-50 Complex] Capsule 1 cap PO DAILY lysine [L-Lysine] 500 mg tablet 1,000 mg PO DAILY PRN turmeric root extract 500 mg capsule 500 mg PO DAILY flecainide [Tambocor] 50 MG tablet 50 mg PO BID Patient Comments: aspirin 81 MG tablet,chewable 81 mg PO DAILY PRN gabapentin 100 mg capsule 200 mg PO HS Discharge Instructions Instructions: Atrial Fibrillation (DC) Stand Alone Forms: Nursing Discharge Form Referrals: Monica Sol [Primary Care Provider] - (f/u with PCP in 3-5 days f/u with Cardiology as previously scheduled Please call your PCP office on Wednesday to make a follow - up appointment.) Activity:: Activity as Tolerated Equipment/Supplies:: No Equipment Needed Diet:: As Tolerated Discharge Orders Discharge Orders: Discharge Order (Routine); Ordered 06/10/24 Ordered By: Lawrence Park Discharge Data Discharge Date/Time-TO BE ENTERED AT DEPARTURE: 06/10/24 09:15 DS: Summary Time Spent with Patient providing and/or coordinating discharge services: Less than 30 minutes Status at Discharge Functional status at discharge: independent ambulation Overall status at discharge: patient is back to baseline Mental Status: mental status grossly normal Speech and Movement: speech and movement normal Mood: congruent mood Affect: normal affect Quality:SDOH Health Related Social Needs: No Data to Display Exam Psych Mental Status: mental status grossly normal Speech and Movement: speech and movement normal Mood: congruent mood Affect: normal affect DS: Data Vitals/I&O Vitals and I&O: Vital Signs Temperature 36.8 C 06/10/24 06:40 Temperature Source Temporal Artery Scan 06/10/24 06:40 Pulse 78 06/10/24 06:40 Pulse Rhythm Regular 06/09/24 12:50 Pulse 78 06/09/24 12:32 Respiratory Rate 16 06/10/24 06:40 Respiratory Effort Normal, Non-Labored 06/09/24 12:50 Respiratory Depth Normal 06/09/24 12:50 Respiratory Pattern Normal 06/09/24 12:50 Blood Pressure 149/98 H 06/10/24 06:40 Blood Pressure Mean 97 06/09/24 12:31 Pulse Oximetry 98 06/10/24 06:40 Oxygen Delivery Method Room Air 06/10/24 06:40 Oxygen Flow Rate 0 06/10/24 06:40 Pain Level 0 06/09/24 12:50 Intake & Output 06/09/24 06/09/24 06/10/24 11:59 23:59 11:59 Intake Total 10 / 370 360 / 370 320 / 320 Output Total 500 / 500 Balance -490 / -130 360 / -130 320 / 320 Weight 89.811 kg 89.811 kg Intake: IV Oral 350 / 350 320 / 320 Output: Urine 500 / 500 Other: Comment voiding independently in room pt reported voiding unmeasured unwitnessed amount in toilet. Data Completed and Pending Labs on day of discharge: Labs from last 24 hours 06/10/24 06/09/24 06/09/24 06:05 10:55 09:07 WBC 7.38 RBC 4.40 Hgb 14.2 Hct 40.9 MCV 93 MCH 32.3 MCHC 34.7 RDW 12.5 Plt Count 144 MPV 11.4 H Immature Gran % 0.3 Neutrophils % 61.0 Lymphocytes % 26.0 Monocytes % 6.2 Eosinophils % 4.9 Basophils % 1.6 Nucleated RBC % 0.0 Absolute Neutrophils 4.50 Absolute Lymphocytes 1.92 Absolute Monocytes 0.46 Absolute Eosinophils 0.36 Absolute Basophils 0.12 Sodium 144 Potassium 3.7 Chloride 110 H Carbon Dioxide 27.4 Anion Gap 6.6 BUN 23 H Creatinine 1.2 Est GFR (CKD-EPI 2020) 63.46 Glucose 95 Calcium 8.8 Magnesium Total Bilirubin 0.38 AST 12 L ALT 15 L Alkaline Phosphatase 69 Troponin I 6 6 Total Protein 6.4 Albumin 3.4 TSH Free T4 06/09/24 07:50 WBC 6.98 RBC 4.83 Hgb 15.5 Hct 45.6 MCV 94 MCH 32.1 MCHC 34.0 RDW 12.4 Plt Count 143 MPV 11.1 H Immature Gran % 0.3 Neutrophils % 58.6 Lymphocytes % 26.6 Monocytes % 6.7 Eosinophils % 6.4 Basophils % 1.4 Nucleated RBC % 0.0 Absolute Neutrophils 4.08 Absolute Lymphocytes 1.86 Absolute Monocytes 0.47 Absolute Eosinophils 0.45 Absolute Basophils 0.10 Sodium 142 Potassium 3.8 Chloride 105 Carbon Dioxide 27.0 Anion Gap 10.0 BUN 20 H Creatinine 1.3 Est GFR (CKD-EPI 2020) 57.65 Glucose 106 Calcium 9.3 Magnesium 1.9 Total Bilirubin 0.53 AST 15 ALT 18 Alkaline Phosphatase 80 Troponin I 6 Total Protein 7.4 Albumin 4.0 TSH 3.99 H Free T4 1.02 PFSH All Active Problems (Updated 06/11/24 @ 00:05 by ANG DELANEY) Atrial fibrillation with rapid ventricular response (Acute) Elevated serum creatinine (Acute) Shingles (Acute) BPH (benign prostatic hyperplasia) (Chronic) Erectile dysfunction (Acute) Anxiety disorder (Acute) Tinnitus, bilateral (Acute) Osteoarthritis cervical spine (Acute) RLS (restless legs syndrome) (Acute) 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) Medical History Chest pain Social History Smoking/Tobacco Use Status: Never Smoking risk assessment performed?: Yes Alcohol Intake: current Alcohol Intake frequency: holidays/special occasions only Drug use: Never Substance use type: does not use Housing: house Do you feel safe at home: Yes Do you feel safe in your relationship?: Yes Time Spent with Patient Time Spent with Patient: <45 minutes Time was spent: preparing to see the patient(eg.review tests), obtaining and/or reviewing separately otained hiistory, ordering medications,tests, procedures, referring, communicating with other health rn long term care, indepentently interpreting results, counseling the patient and care coordination
--- NOTE | 2024-06-10 07:50 | DSE_ITS ---
Date of service: 06/10/24 Time of Service: 07:50 DS: Diagnosis Discharge Diagnosis (1) Afib: Status: Chronic (2) Atrial fibrillation with rapid ventricular response: Status: Acute Discharge Plan Disposition Patient Disposition: Home Condition: Improving Discharge Details Reason For Visit: Afib Admit Date/Time: 06/09/24 11:55 Admit Provider: Lawrence Park Attending Provider: Lawrence Park Primary Care Provider: Monica Sol [facility] Course Hospital Course: This is a 73-year-old gentleman who enjoys fairly good health but does have a history of atrial fibrillation. The patient did stop taking his morning dose of flecainide and since then has had periods of A-fib with RVR. Came into the ED yesterday because of heavy palpitations per his words. Patient was admitted because he did have a run of bradycardia actually and we wanted to monitor him overnight. Patient stated that he was going to leave AMA but I am going to discharge him. He was doing well with the flecainide 50 mg p.o. twice daily so organ to restart this and will also add some Eliquis at least in the short-term as he appears to have paroxysmal atrial fibrillation. Patient states that he has a cardiology appointment in July. Of note, the patient does not have anemia, hyperthyroidism, nor does he take any stimulant caffeine. Let me know that the patient did have a run of tachycardia which responded to beta-blockers. Recent are not sending him home on beta-blockers because he had good control with his flecainide until he is decreased the dose by half, and with his full dose he should have good control Home Meds and New Rx's Prescriptions: New Eliquis 5 mg Tablet 5 mg PO BID Qty: 60 0RF Continued ascorbic acid (vitamin C) 1,000 mg tablet 4 g PO DAILY omega-3 fatty acids [Fish Oil Concentrate] 1,000 mg capsule 2,000 mg PO DAILY cholecalciferol (vitamin D3) 25 mcg (1,000 unit) capsule 75 mcg PO DAILY PRN magnesium 250 mg tablet 250 mg PO DAILY folic acid 400 mcg tablet 0.8 mg PO DAILY vitamin B complex [Super B-50 Complex] Capsule 1 cap PO DAILY lysine [L-Lysine] 500 mg tablet 1,000 mg PO DAILY PRN turmeric root extract 500 mg capsule 500 mg PO DAILY flecainide [Tambocor] 50 MG tablet 50 mg PO BID Patient Comments: aspirin 81 MG tablet,chewable 81 mg PO DAILY PRN gabapentin 100 mg capsule 200 mg PO HS Discharge Instructions Stand Alone Forms: Nursing Discharge Form Referrals: Monica Sol [Primary Care Provider] - (f/u with PCP in 3-5 days f/u with Cardiology as previously scheduled) Activity:: Activity as Tolerated Equipment/Supplies:: No Equipment Needed Diet:: As Tolerated Discharge Orders Discharge Orders: Discharge Order (Routine); Ordered 06/10/24 Ordered By: Lawrence Park DS: Summary Time Spent with Patient providing and/or coordinating discharge services: Greater than 30 minutes Status at Discharge Functional status at discharge: independent ambulation Overall status at discharge: patient is back to baseline Mental Status: mental status grossly normal Speech and Movement: speech and movement normal Mood: congruent mood Affect: normal affect Quality:SDOH Health Related Social Needs: No Data to Display Exam Narrative Exam Narrative: Head eyes ears nose and throat: Normocephalic atraumatic mucous membranes moist extraocular motions intact pupils equal round reactive to light Neck: No lymphadenopathy no JVD no thyromegaly Cardiovascular: Currently regular rate and rhythm no murmur rubs gallops Lungs: Clear to auscultation bilaterally with good air exchange no accessory muscle use Abdomen: Soft nontender nondistended bowel sounds active Extremities: No sinus clubbing or edema bilaterally in upper and lower extremities Neurologic: Cranial nerves II through XII intact as tested reflexes in upper lower extremity normal as tested Psych: Alert and oriented x 3 giving a linear history Psych Mental Status: mental status grossly normal Speech and Movement: speech and movement normal Mood: congruent mood Affect: normal affect DS: Data Vitals/I&O Vitals and I&O: Vital Signs Temperature 36.8 C 06/10/24 06:40 Temperature Source Temporal Artery Scan 06/10/24 06:40 Pulse 78 06/10/24 06:40 Pulse Rhythm Regular 06/09/24 12:50 Pulse 78 06/09/24 12:32 Respiratory Rate 16 06/10/24 06:40 Respiratory Effort Normal, Non-Labored 06/09/24 12:50 Respiratory Depth Normal 06/09/24 12:50 Respiratory Pattern Normal 06/09/24 12:50 Blood Pressure 149/98 H 06/10/24 06:40 Blood Pressure Mean 97 06/09/24 12:31 Pulse Oximetry 98 06/10/24 06:40 Oxygen Delivery Method Room Air 06/10/24 06:40 Oxygen Flow Rate 0 06/10/24 06:40 Pain Level 0 06/09/24 12:50 Intake & Output 06/09/24 06/09/24 06/10/24 11:59 23:59 11:59 Intake Total 10 / 370 360 / 370 320 / 320 Output Total 500 / 500 Balance -490 / -130 360 / -130 320 / 320 Weight 89.811 kg 89.811 kg Intake: IV Oral 350 / 350 320 / 320 Output: Urine 500 / 500 Other: Comment voiding independently in room pt reported voiding unmeasured unwitnessed amount in toilet. Data Completed and Pending Labs on day of discharge: Labs from last 24 hours 06/10/24 06/09/24 06/09/24 06:05 10:55 09:07 WBC 7.38 RBC 4.40 Hgb 14.2 Hct 40.9 MCV 93 MCH 32.3 MCHC 34.7 RDW 12.5 Plt Count 144 MPV 11.4 H Immature Gran % 0.3 Neutrophils % 61.0 Lymphocytes % 26.0 Monocytes % 6.2 Eosinophils % 4.9 Basophils % 1.6 Nucleated RBC % 0.0 Absolute Neutrophils 4.50 Absolute Lymphocytes 1.92 Absolute Monocytes 0.46 Absolute Eosinophils 0.36 Absolute Basophils 0.12 Sodium 144 Potassium 3.7 Chloride 110 H Carbon Dioxide 27.4 Anion Gap 6.6 BUN 23 H Creatinine 1.2 Est GFR (CKD-EPI 2020) 63.46 Glucose 95 Calcium 8.8 Magnesium Total Bilirubin 0.38 AST 12 L ALT 15 L Alkaline Phosphatase 69 Troponin I 6 6 Total Protein 6.4 Albumin 3.4 TSH Free T4 06/09/24 07:50 WBC 6.98 RBC 4.83 Hgb 15.5 Hct 45.6 MCV 94 MCH 32.1 MCHC 34.0 RDW 12.4 Plt Count 143 MPV 11.1 H Immature Gran % 0.3 Neutrophils % 58.6 Lymphocytes % 26.6 Monocytes % 6.7 Eosinophils % 6.4 Basophils % 1.4 Nucleated RBC % 0.0 Absolute Neutrophils 4.08 Absolute Lymphocytes 1.86 Absolute Monocytes 0.47 Absolute Eosinophils 0.45 Absolute Basophils 0.10 Sodium 142 Potassium 3.8 Chloride 105 Carbon Dioxide 27.0 Anion Gap 10.0 BUN 20 H Creatinine 1.3 Est GFR (CKD-EPI 2020) 57.65 Glucose 106 Calcium 9.3 Magnesium 1.9 Total Bilirubin 0.53 AST 15 ALT 18 Alkaline Phosphatase 80 Troponin I 6 Total Protein 7.4 Albumin 4.0 TSH 3.99 H Free T4 1.02 PFSH All Active Problems (Updated 06/09/24 @ 09:55 by Wenceslao Solares MD) Atrial fibrillation with rapid ventricular response (Acute) Elevated serum creatinine (Acute) Shingles (Acute) BPH (benign prostatic hyperplasia) (Chronic) Erectile dysfunction (Acute) Anxiety disorder (Acute) Tinnitus, bilateral (Acute) Osteoarthritis cervical spine (Acute) RLS (restless legs syndrome) (Acute) Afib (Chronic) 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) Medical History Chest pain Social History Smoking/Tobacco Use Status: Never Smoking risk assessment performed?: Yes Alcohol Intake: current Alcohol Intake frequency: holidays/special occasions only Drug use: Never Substance use type: does not use Housing: house Do you feel safe at home: Yes Do you feel safe in your relationship?: Yes Time Spent with Patient Time Spent with Patient: 45-69 minutes Time was spent: preparing to see the patient(eg.review tests), indepentently interpreting results, counseling the patient and care coordination
[2024-06-10] MEDS: Apixaban 5 MG TAB PO (09:13)
== END 2024-06-10 09:15 | disposition home or self-care (01) ==
LOC: ER 09:55 → MS 12:44
PROVIDERS: Admitting Provider Hospitalist; Emergency Provider Student in an Organized Health Care Education/Training Program; PCP Nurse Practitioner Family; Visit Provider Hospitalist
DX: I48.0 Paroxysmal atrial fibrillation (principal); R00.1 Bradycardia, unspecified; N40.0 Benign prostatic hyperplasia without lower urinary tract symptoms; G25.81 Restless legs syndrome; M17.0 Bilateral primary osteoarthritis of knee; M47.812 Spondylosis without myelopathy or radiculopathy, cervical region; Z79.899 Other long term (current) drug therapy
CPT/HCPCS: 00123; 36415; 80053; 93005; 99285; 83735; 84439; 84443; 84484; 85025; 93010; 99222; 99239

== ENCOUNTER 2024-11-10 06:24 | Emergency (ER) | payer MEDICARE, SELFPAY ==
[2024-11-10] VITALS (22 sets, daily range): BP systolic 106–149; BP diastolic 67–86; PULSE 43–77; RESP 8–21; O2SAT 66–98
--- NOTE | 2024-11-10 06:30 | RT.EKG_ITS ---
APPROVED REPORT Exam: Resting ECG Reason for Exam: afib Patient Location: E HR:70 bpm ECG Measurements Heart Rate 70 AXIS NM 221 P 24 QRSd 103 QRS -16 QT 364 T 48 QTc 394 Conclusion Sinus rhythm, rate 70 1st degree HB, NM interval 221ms No ectopy No STEMI Compared to priors, A-flutter has resolved
--- NOTE | 2024-11-10 06:43 | W.ED.GENAD ---
Discharge Plan Disposition Patient Disposition: Home Condition: Stable Discharge Details Chief Complaint: Palpitatns Clinical Impression: Atrial fibrillation with rapid ventricular response Primary Care Provider: Monica Sol ED Provider: Pooja Rose Home Meds and New Rx's Prescriptions: No Action ascorbic acid (vitamin C) 1,000 mg tablet 4 g PO DAILY omega-3 fatty acids [Fish Oil Concentrate] 1,000 mg capsule 2,000 mg PO DAILY cholecalciferol (vitamin D3) 25 mcg (1,000 unit) capsule 75 mcg PO DAILY PRN magnesium 250 mg tablet 250 mg PO DAILY folic acid 400 mcg tablet 0.8 mg PO DAILY vitamin B complex [Super B-50 Complex] Capsule 1 cap PO DAILY lysine [L-Lysine] 500 mg tablet 1,000 mg PO DAILY PRN turmeric root extract 500 mg capsule 500 mg PO DAILY flecainide [Tambocor] 50 MG tablet 50 mg PO BID Patient Comments: aspirin 81 MG tablet,chewable 81 mg PO DAILY PRN gabapentin 100 mg capsule 200 mg PO HS Eliquis 5 mg Tablet 5 mg PO BID Qty: 60 0RF Discharge Instructions Instructions: Atrial Fibrillation and Atrial Flutter ED Additional Instructions: You were seen in the emergency department today for evaluation of a fast heart rate, which thankfully converted to a normal sinus rhythm prior to arrival at our facility. In our department you do full physical examination performed, had a reassuring EKG, and had laboratory studies that did not show any signs of electrolyte changes, damage to your heart, or other abnormalities which might explain your heart rhythm. We discussed medications and their management, I do recommend that you continue your flecainide daily, and utilize your metoprolol as needed for heart rates that are sustained greater than 100. We did discuss the use of apixaban, as this medication, when used daily, can prevent the formation of blood clots which could be sent to your brain during transition from atrial fibrillation to sinus rhythm. Certainly this medication carries with it a risk of severe bleeding, so if you sustain head trauma, or other injury you will need to be evaluated at the emergency department. Please keep your appointment at [facility] to discuss your ablation. You should return to the emergency department if you have a recurrence of your atrial fibrillation, develop chest pain, shortness of breath, or have any other symptoms that cause you concern. Please follow-up with your primary care provider in the next few days to discuss this visit and any symptoms that change, worsen, or persist. Thank you for allowing us to be part of your care. HPI General Mode of arrival: ambulatory. Date/Time Provider Initiated Documentation: 11/10/24 06:25. Limitations to Documentation: no limitations. Information obtained by: patient and old records reviewed. HPI Narrative: This is a 74-year-old male patient with a past medical history significant for atrial fibrillation, BPH and restless legs presenting for evaluation of fast heart rate and palpitations. The patient reports that these started last night and interfered with his sleep, states that it felt different than his typical episodes of atrial fibrillation. Noted his rates anywhere between the 120s and 140s, no associated chest pain, states that he feels like his heart went back into a regular rate when he was driving in today. He is taking his flecainide as prescribed, states that he takes his Eliquis only when he feels an episode of atrial fibrillation, not daily. The patient also takes metoprolol when he has an episode of tachycardia, took 25 mg last night and this morning. He will often take a second flecainide if he feels himself go into atrial fibrillation. The only change to the patient's health is that he is doing a liver cleanse, where he drinks malic acid, which he has been doing for approximately 1 week. He is otherwise been maintaining good hydration and nutrition, no other changes to his medications, no excessive caffeine. At this time, other than feeling quite tired the patient reports that he feels back to his normal state of health. Related Data Home Medications ?Medication ?Instructions ?Recorded ?Confirmed aspirin 81 mg chewable tablet 81 mg PO DAILY PRN 06/17/15 11/10/24 flecainide 50 mg tablet (Tambocor) 50 mg PO BID 06/17/15 11/10/24 gabapentin 100 mg capsule 200 mg PO HS 09/23/20 11/10/24 ascorbic acid (vitamin C) 1,000 mg 4 g PO DAILY 09/24/20 11/10/24 tablet cholecalciferol (vitamin D3) 25 75 mcg PO DAILY PRN 09/24/20 11/10/24 mcg (1,000 unit) capsule folic acid 400 mcg tablet 0.8 mg PO DAILY 09/24/20 11/10/24 lysine 500 mg tablet (L-Lysine) 1,000 mg PO DAILY PRN 09/24/20 11/10/24 magnesium 250 mg tablet 250 mg PO DAILY 09/24/20 11/10/24 omega-3 fatty acids 1,000 mg 2,000 mg PO DAILY 09/24/20 11/10/24 capsule (Fish Oil Concentrate) turmeric root extract 500 mg 500 mg PO DAILY 09/24/20 11/10/24 capsule vitamin B complex (Super B-50 1 cap PO DAILY 09/24/20 11/10/24 Complex capsule) apixaban 5 mg tablet (Eliquis) 5 mg PO BID #60 tabs 06/10/24 11/10/24 Previous Rx's ?Medication ?Instructions ?Recorded apixaban 5 mg tablet (Eliquis) 5 mg PO BID #60 tabs 06/10/24 Allergies Allergy/AdvReac Type Severity Reaction Status Date / Time No Known Allergies Allergy Verified 11/10/24 06:29 General Stated Complaint: Palpitatns ZION: 3 Exam Narrative Exam Narrative: Gen: Awake and alert, in no apparent distress HEENT: Non-icteric sclera Neck: Supple Lungs: No apparent respiratory distress, normal respiratory effort. Lung sounds clear and equal bilaterally CV: Appears well perfused, heart with regular rate and rhythm at this time, no murmurs auscultated, strong distal pulses Abdomen: Non-distended MSK: Moves 4 extremities without apparent limitation in ROM. No peripheral edema, no unilateral calf swelling or tenderness Skin: Visualized skin without rashes, cyanosis. Neuro: Normal Gait, no obvious focal deficits or facial asymmetry. Speaks in full, clear sentences. Psych: Appropriate for situation. Course Vital Signs Vital signs: Vital Signs Pulse 75 11/10/24 06:26 Respiratory Rate 20 11/10/24 06:26 Blood Pressure 149/81 H 11/10/24 06:26 Pulse Oximetry 95 11/10/24 06:26 Pulse 75 11/10/24 06:26 Respiratory Rate 20 11/10/24 06:26 Blood Pressure 149/81 H 11/10/24 06:26 Pulse Oximetry 95 11/10/24 06:26 Pain Level 0 11/10/24 06:26 Medical Decision Making This is a 74-year-old male patient presenting for evaluation of palpitations and tachydysrhythmia. Reassuringly, this appears to have resolved, as the patient is now in a normal sinus rhythm on the monitor and is symptom-free. My differential includes but is not limited to arrhythmia including the patient's known paroxysmal atrial fibrillation. Considered ACS, pericarditis and myocarditis. Considered medication effects, metabolic and electrolyte derangements, kidney injury and liver disease. Considered dehydration, hyperthyroidism (though the patient is without history of same). We obtained a twelve-lead EKG which I reviewed, which shows a sinus rhythm with a borderline first-degree heart block, no evidence for acute ischemia or interval abnormalities. We will obtain laboratory studies to include CBC, CMP, magnesium, troponin, and TSH. - I independently interpreted the laboratory studies, which show no significant leukocytosis, anemia, or thrombocytopenia. The chemistry panel is without evidence of electrolyte abnormality, kidney dysfunction, or liver injury. TSH within normal limits, initial troponin negative. I had an extended care discussion with the patient and his regarding his medical management of his A-fib, and provided him with counseling on the risks and benefits of Eliquis and paroxysmal atrial fibrillation. I am reassured to learn that the patient has a follow-up with the [facility] cardiology team to discuss ablation on Wednesday. The patient was signed out to the oncoming care provider prior to completion of second troponin. All further care for the oncoming provider, patient remained hemodynamically appropriate while under my care. Pooja Rose MD Quality:SDOH Health Related Social Needs: No Data to Display PFSH All Active Problems (Updated 11/10/24 @ 07:34 by Pooja Rose MD) Atrial fibrillation with rapid ventricular response (Acute) Elevated serum creatinine (Acute) Shingles (Acute) BPH (benign prostatic hyperplasia) (Chronic) Erectile dysfunction (Acute) Anxiety disorder (Acute) Tinnitus, bilateral (Acute) Osteoarthritis cervical spine (Acute) RLS (restless legs syndrome) (Acute) 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) Medical History Chest pain Social History Smoking/Tobacco Use Status: Never Smoking risk assessment performed?: Yes Alcohol Intake: current Alcohol Intake frequency: holidays/special occasions only Drug use: Never Substance use type: does not use Housing: house Do you feel safe at home: Yes Do you feel safe in your relationship?: Yes
[2024-11-10 06:44] LABS: Abs Immature Grans 0.02 10^3/uL (0.0-0.06); Absolute Basophil Count 0.09 10^3/uL (0.0-0.2); Absolute Eosinophil Count 0.16 10^3/uL (0.0-0.7); Absolute Lymphocyte Count 2.07 10^3/uL (1.2-3.4); Absolute Monocyte Count 0.49 10^3/uL (0.1-0.8); Absolute Neutrophil Count 4.44 10^3/uL (1.2-6.7); Basophils % 1.2 %; Eosinophils % 2.2 %; HCT 45.9 % (40.0-50.0); HGB 15.4 g/dL (13.5-17.5); Immature Grans % 0.3 %; Lymphocytes % 28.5 %; MCH 31.8 pg (27.0-33.0); MCHC 33.6 % (32.0-36.0); MCV 95 fL (80-95); Monocytes % 6.7 %; Neutrophils % 61.1 %; Platelet Count 163 10^3/uL (130-400); RBC 4.85 10^6/uL (4.36-5.78); RDW 12.8 % (11.8-14.1); RDW-SD 44.7 fL; WBC 7.27 10^3/uL (4.4-10.8)
[2024-11-10 07:09] LABS: ALT 19 U/L (16-63); AST 13 U/L (15-37); Albumin 3.9 g/dL (3.4-5.0); Alkaline Phosphatase 80 U/L (46-116); Anion Gap 5.9 mmol/L (3-11); BUN 20 mg/dL (7-18); Bilirubin, Total 0.4 mg/dL (0.2-1.0); CO2 31.1 mmol/L (21.0-32.0); CREATININE 1.2 mg/dL (0.70-1.30); Calcium 9.1 mg/dL (8.5-10.1); Chloride 107 mmol/L (98-107); Estimated GFR 63.07 (mL/min/1.73m2); Glucose 119 mg/dL (74-106); Magnesium 1.9 mg/dL (1.8-2.4); Potassium 3.9 mmol/L (3.5-5.1); Sodium 144 mmol/L (136-145); TSH (W/Ref FT4) 3.02 uIU/mL (0.36-3.74); Total Protein 7.3 g/dL (6.4-8.2); Troponin I 9 ng/L (<or=76)
--- NOTE | 2024-11-10 08:07 | W.EDPROG ---
Date of service: 11/10/24 Time of Service: 08:07 Medical Decision Making Patient signed out to me pending delta troponin. Patient has a history of A-fib and had elevated rates overnight and on arrival here had self converted. Currently asymptomatic. If delta troponin negative we will plan for discharge and has scheduled cardiology follow-up for Wednesday at [facility]. Delta troponin negative, patient is still asymptomatic and in sinus rhythm. He is stable for discharge and has follow-up with cardiology, return precautions given Quality:[facility] Health Related Social Needs: No Data to Display Discharge Plan Disposition Patient Disposition: Home Condition: Stable Discharge Details Clinical Impression: Atrial fibrillation with rapid ventricular response Primary Care Provider: Monica Sol ED Provider: Denys Knutson Home Meds and New Rx's Prescriptions: Continued ascorbic acid (vitamin C) 1,000 mg tablet 4 g PO DAILY omega-3 fatty acids [Fish Oil Concentrate] 1,000 mg capsule 2,000 mg PO DAILY cholecalciferol (vitamin D3) 25 mcg (1,000 unit) capsule 75 mcg PO DAILY PRN magnesium 250 mg tablet 250 mg PO DAILY folic acid 400 mcg tablet 0.8 mg PO DAILY vitamin B complex [Super B-50 Complex] Capsule 1 cap PO DAILY lysine [L-Lysine] 500 mg tablet 1,000 mg PO DAILY PRN turmeric root extract 500 mg capsule 500 mg PO DAILY flecainide [Tambocor] 50 MG tablet 50 mg PO BID Patient Comments: aspirin 81 MG tablet,chewable 81 mg PO DAILY PRN gabapentin 100 mg capsule 200 mg PO HS Eliquis 5 mg Tablet 5 mg PO BID Qty: 60 0RF Discharge Instructions Instructions: Atrial Fibrillation and Atrial Flutter ED Additional Instructions: You were seen in the emergency department today for evaluation of a fast heart rate, which thankfully converted to a normal sinus rhythm prior to arrival at our facility. In our department you do full physical examination performed, had a reassuring EKG, and had laboratory studies that did not show any signs of electrolyte changes, damage to your heart, or other abnormalities which might explain your heart rhythm. We discussed medications and their management, I do recommend that you continue your flecainide daily, and utilize your metoprolol as needed for heart rates that are sustained greater than 100. We did discuss the use of apixaban, as this medication, when used daily, can prevent the formation of blood clots which could be sent to your brain during transition from atrial fibrillation to sinus rhythm. Certainly this medication carries with it a risk of severe bleeding, so if you sustain head trauma, or other injury you will need to be evaluated at the emergency department. Please keep your appointment at [facility] to discuss your ablation. You should return to the emergency department if you have a recurrence of your atrial fibrillation, develop chest pain, shortness of breath, or have any other symptoms that cause you concern. Please follow-up with your primary care provider in the next few days to discuss this visit and any symptoms that change, worsen, or persist. Thank you for allowing us to be part of your care.
[2024-11-10 08:14] LABS: Troponin I 8 ng/L (<or=76)
== END 2024-11-10 08:33 | disposition home or self-care (01) ==
PROVIDERS: Emergency Medicine; Emergency Provider Emergency Medicine; PCP Nurse Practitioner Family
DX: R00.2 Palpitations (principal); I48.91 Unspecified atrial fibrillation; Z79.82 Long term (current) use of aspirin; Z79.01 Long term (current) use of anticoagulants
CPT/HCPCS: 00123; 36415; 80053; 93005; 99284; 83735; 84443; 84484; 85025; 93010

== ENCOUNTER 2024-12-04 19:58 | Inpatient (IN) | payer MEDICARE, SELFPAY ==
[2024-12-04] VITALS (53 sets, daily range): BP systolic 106–160; BP diastolic 70–136; PULSE 60–209; RESP 7–32; TEMP 36.4–36.5; O2SAT 90–99
--- NOTE | 2024-12-04 20:00 | RT.EKG_ITS ---
APPROVED REPORT Exam: Resting ECG Reason for Exam: chest pain Patient Location: E HR:191 bpm ECG Measurements Heart Rate 191 AXIS [place] [id number] P 0 QRSd 76 QRS -17 QT 260 T 91 QTc 463 Conclusion A-fib with RVR vs SVT, rate 191 Rate-related ST segment changes Compared to prior, tachydysrhythmia is new
[2024-12-04] MEDS: Adenosine 6 MG/2 ML VIAL (20:40)
[2024-12-04] MEDS: Propofol 200 MG/20 ML VIAL 90 MG IVP (20:59)
--- NOTE | 2024-12-04 21:00 | RT.EKG_ITS ---
APPROVED REPORT Exam: Resting ECG Reason for Exam: chest pain, cardioverted Patient Location: E HR:97 bpm ECG Measurements Heart Rate 97 AXIS [place] 256 P 68 QRSd 81 QRS 9 QT 321 T 37 QTc 409 Conclusion Atrial flutter, rate 97 No STEMI Compared to priors, RVR has resolved
--- NOTE | 2024-12-04 21:17 | W.ED.GENAD ---
Discharge Plan Disposition Patient Disposition: Admit to [facility] Condition: Improving Discharge Details Clinical Impression: Atrial fibrillation with rapid ventricular response, Elevated troponin level not due myocardial infarction Primary Care Provider: Monica Sol ED Provider: Pooja Rose Home Meds and New Rx's Prescriptions: No Action ascorbic acid (vitamin C) 1,000 mg tablet 4 g PO DAILY omega-3 fatty acids [Fish Oil Concentrate] 1,000 mg capsule 2,000 mg PO DAILY cholecalciferol (vitamin D3) 25 mcg (1,000 unit) capsule 75 mcg PO DAILY PRN magnesium 250 mg tablet 250 mg PO DAILY folic acid 400 mcg tablet 0.8 mg PO DAILY vitamin B complex [Super B-50 Complex] Capsule 1 cap PO DAILY lysine [L-Lysine] 500 mg tablet 1,000 mg PO DAILY PRN turmeric root extract 500 mg capsule 500 mg PO DAILY flecainide [Tambocor] 50 MG tablet 50 mg PO BID Patient Comments: aspirin 81 MG tablet,chewable 81 mg PO DAILY PRN gabapentin 100 mg capsule 200 mg PO HS pantoprazole 40 mg tablet,delayed release (DR/EC) 40 mg PO DAILY Patient Comments: TAKE 1 TABLET BY MOUTH EVERY DAY -START TAKING FOR 3 DAYS PRIOR TO PROCEDURE AND FOR 30 DAYS AFTER ABLATION metoprolol succinate 25 mg tablet extended release 24 hr 25 mg PO PRN diazepam 5 mg tablet 5 mg PO PRN Patient Comments: TAKE 1 TABLET BY MOUTH TWICE DAILY NEEDED FOR ANXIETY Eliquis 5 mg Tablet 5 mg PO BID Qty: 60 0RF HPI General Mode of arrival: ambulatory. Date/Time Provider Initiated Documentation: 12/04/24 20:13. Limitations to Documentation: no limitations. Information obtained by: patient, family and old records reviewed. HPI Narrative: This is a 74-year-old male patient with a past medical history significant for atrial fibrillation, status post ablation on 11/30/2024 at [facility], on Eliquis, presenting for evaluation of chest pain. The patient reports that 1 hour ago he was eating dinner and he had a sudden onset of chest pain, felt his heart racing. He noted his heart rates to be in the 190s to 200s, attempted his Valsalva and breathing exercises without improvement. He presented to care and reports a squeezing pain in the center of his chest, states that he feels very unwell. The patient was in his normal state of health prior to this event, though has noted ecchymosis in his groin since his ablation. When he started to experience the symptoms he took 2 of his flecainide's and a metoprolol without improvement in his rate. Related Data Home Medications ?Medication ?Instructions ?Recorded ?Confirmed aspirin 81 mg chewable tablet 81 mg PO DAILY PRN 06/17/15 12/04/24 flecainide 50 mg tablet (Tambocor) 50 mg PO BID 06/17/15 12/04/24 gabapentin 100 mg capsule 200 mg PO HS 09/23/20 12/04/24 ascorbic acid (vitamin C) 1,000 mg 4 g PO DAILY 09/24/20 12/04/24 tablet cholecalciferol (vitamin D3) 25 75 mcg PO DAILY PRN 09/24/20 12/04/24 mcg (1,000 unit) capsule folic acid 400 mcg tablet 0.8 mg PO DAILY 09/24/20 12/04/24 lysine 500 mg tablet (L-Lysine) 1,000 mg PO DAILY PRN 09/24/20 12/04/24 magnesium 250 mg tablet 250 mg PO DAILY 09/24/20 12/04/24 omega-3 fatty acids 1,000 mg 2,000 mg PO DAILY 09/24/20 12/04/24 capsule (Fish Oil Concentrate) turmeric root extract 500 mg 500 mg PO DAILY 09/24/20 12/04/24 capsule vitamin B complex (Super B-50 1 cap PO DAILY 09/24/20 12/04/24 Complex capsule) apixaban 5 mg tablet (Eliquis) 5 mg PO BID #60 tabs 06/10/24 12/04/24 diazepam 5 mg tablet 5 mg PO PRN 12/04/24 12/04/24 metoprolol succinate 25 mg 25 mg PO PRN 12/04/24 12/04/24 tablet,extended release 24 hr pantoprazole 40 mg tablet,delayed 40 mg PO DAILY 12/04/24 12/04/24 release Previous Rx's ?Medication ?Instructions ?Recorded apixaban 5 mg tablet (Eliquis) 5 mg PO BID #60 tabs 06/10/24 Allergies Allergy/AdvReac Type Severity Reaction Status Date / Time No Known Allergies Allergy Verified 11/10/24 06:29 General Stated Complaint: Chest Pain ZION: 2 Exam Narrative Exam Narrative: Gen: awake and alert, in no apparent distress. Appears well nourished. HEENT: PERRL Neck: Supple, full range of motion, no observable masses Lungs: No increased work of breathing, lung sounds clear and equal bilaterally without wheezes, rhonchi, or rales. CV: Heart with tachycardic rate and irregularly irregular rhythm, though certainly with these tachycardic rates his rhythm approaches regularity. Strong distal pulses Abdomen: Soft, nondistended, non-tender to palpation. No rigidity, rebound tenderness, or guarding. MSK: No joint swelling, no redness. Full ROM without limitation, no external traumatic findings. Skin: No rashes or lesions to visualized skin. Normal color, warm, and dry. The patient does have ecchymosis of the right groin extending down to the mid thigh, I do not palpate any firmness or fluctuance suggestive of hematoma or abscess. Neuro: Cranial nerves II-XII intact and symmetrical bilaterally. 5/5 strength in all muscle groups x4 extremities. No sensory deficits. Strong femoral pulses Psych: Appropriate for situation. Course Vital Signs Vital signs: Vital Signs Temperature 36.4 C 12/04/24 20:01 Pulse 94 H 12/04/24 20:01 Respiratory Rate 20 12/04/24 20:01 Blood Pressure 131/96 H 12/04/24 20:01 Pulse Oximetry 96 12/04/24 20:01 Temperature 36.4 C 12/04/24 20:01 Temperature Source Oral 12/04/24 20:01 Pulse 94 H 12/04/24 20:01 Respiratory Rate 20 12/04/24 20:01 Blood Pressure 131/96 H 12/04/24 20:01 Blood Pressure Position Sitting 12/04/24 20:01 Pulse Oximetry 96 12/04/24 20:01 Oxygen Delivery Method Room Air 12/04/24 20:01 Oxygen Flow Rate 0 12/04/24 20:01 Pain Level 6 12/04/24 20:01 Medical Decision Making This is a 74-year-old male patient with a history of A-fib with RVR, status post ablation presenting for evaluation of tachydysrhythmia and chest pain. Differential includes but is not limited to arrhythmia, most notably A-fib with RVR, also considered SVT and atrial flutter. Considered ACS, metabolic and electrolyte derangements, dehydration, kidney injury, liver disease. The patient has no history of hyperthyroidism and has had normal TSH levels within the last few months. The patient has a normal blood pressure, but with his active chest pain I am concerned for unstable tachydysrhythmia. We did trial vagal maneuvers several times, twelve-lead EKG obtained which shows an atrial fibrillation with a rapid ventricular response rate in the 190s to 200s. Given the rapid rate and intermittent regularity we also trialed 6 mg of adenosine, which slowed the rhythm and shows an atrial fibrillation. Given the ongoing chest pain the decision was made to proceed with synchronized cardioversion. Written consent was obtained, and the patient was provided with 1 mg/kg of propofol for sedation. Our sedation began at 2102. The patient maintained his respiratory drive, did not sustain hypoxia, and the first shock was delivered at 200 J at 2103, with a transient improvement in his rhythm with a rapid return to a tachydysrhythmia in the 190s. A second 200 J shock was provided 1 minute later. The patient did have a significant improvement in his heart rate, though does appear to still be in an underlying atrial flutter. However, given the significant rate improvement I elected to hold on further cardioversions, and our sedation/procedure ended at 2109. The patient had a return to wakefulness, and reported an improvement in his chest pain. We obtained and reviewed labs, which show no leukocytosis, anemia or thrombocytopenia. INR 1.0, no significant laboratory abnormalities other than a BUN of 21 with a BUN:Cr ratio greater than 22 1, which should be adequately addressed by the liter of IV fluids that he received during adenosine and cardioversion. He does have a new transaminitis, with an AST of 69 and an ALT of 83. Initial troponin was elevated to 197, which I suspect is due to his rapid rate and cardioversion, 1 hour delta recheck at 150 and we will continue to trend. BNP is not elevated. Repeat EKG without evidence of STEMI or active dynamic ischemia. I reached out to [facility] cardiology, and discussed this case with Dr. Rodriguez. He recommends that the patient be transferred to [facility] given his ongoing atrial dysrhythmia, but unfortunately they have no inpatient beds available at this time. For this reason the patient will be admitted to our hospitalist service, for ongoing telemetry monitoring, continuation of his Eliquis, and a plan ultimately to let his flecainide washout and initiate him on dofetilide. Dr. Rodriguez recommends IV diltiazem for rate control as needed. The patient remains hemodynamically appropriate, and I do incidentally note on telemetry that he seems to have converted to a true sinus rhythm with a stable heart rate of 77 prior to transfer up to the ICU. The patient remained hemodynamically appropriate throughout his time in the emergency department. Pooja Rose MD Critical Care Time Critical Care Time Critical Care Time: Yes Total Critical Care Time: 60 Attestation: Upon my evaluation, this patient had a high probability of imminent or life-threatening deterioration due to atrial fibrillation with RVR requiring synchronized cardioversion, troponin elevation, which required my direct attention, intervention, and personal management. I have personally provided 60 minutes of critical care time exclusive of time spent on separately billable procedures. Time includes review of laboratory data, radiology results, discussion with consultants, and monitoring for potential decompensation. Interventions were performed as documented above. Pooja Rose MD [facility] All Active Problems (Updated 12/04/24 @ 23:32 by Pooja Rose MD) Elevated troponin level not due myocardial infarction (Acute) Atrial fibrillation with rapid ventricular response (Acute) Elevated serum creatinine (Acute) Shingles (Acute) BPH (benign prostatic hyperplasia) (Chronic) Erectile dysfunction (Acute) Anxiety disorder (Chronic) Tinnitus, bilateral (Acute) Osteoarthritis cervical spine (Acute) RLS (restless legs syndrome) (Chronic) 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) Medical History (Updated 12/04/24 @ 23:32 by Pooja Rose MD) Chest pain Social History Smoking/Tobacco Use Status: Never Smoking risk assessment performed?: Yes Alcohol Intake: current Alcohol Intake frequency: holidays/special occasions only Drug use: Never Substance use type: does not use Housing: house Do you feel safe at home: Yes Do you feel safe in your relationship?: Yes
--- NOTE | 2024-12-04 21:25 | RESPIRATORY ---
Called to bedside for cardioversion. Pt placed on etco2, emergency airway supplies set up and ready. Pt was shocked 2 times, no complications. Woke up from sedation and is talking, stable, on RA. of pt at bedside.
[2024-12-04 21:39] LABS: Abs Immature Grans 0.02 10^3/uL (0.0-0.06); HCT 41.3 % (40.0-50.0); HGB 13.9 g/dL (13.5-17.5); Immature Grans % 0.3 %; MCH 31.7 pg (27.0-33.0); MCHC 33.7 % (32.0-36.0); MCV 94 fL (80-95); MPV 12.4 fL (8.0-11.0); Platelet Count 134 10^3/uL (130-400); RBC 4.39 10^6/uL (4.36-5.78); RDW 13.1 % (11.8-14.1); RDW-SD 45.1 fL; WBC 6.95 10^3/uL (4.4-10.8)
[2024-12-04 21:45] LABS: INR 1.0 (0.9-1.1); Prothrombin Time 9.9 sec (9.1-11.1)
[2024-12-04 21:55] LABS: ALT 83 U/L (16-63); AST 69 U/L (15-37); Albumin 4.0 g/dL (3.4-5.0); Alkaline Phosphatase 97 U/L (46-116); Anion Gap 11.6 mmol/L (3-11); BUN 21 mg/dL (7-18); Bilirubin, Total 0.6 mg/dL (0.2-1.0); CO2 25.4 mmol/L (21.0-32.0); Calcium 8.9 mg/dL (8.5-10.1); Chloride 106 mmol/L (98-107); Estimated GFR 78.49 (mL/min/1.73m2); Glucose 123 mg/dL (74-106); Magnesium 1.9 mg/dL (1.8-2.4); NT-proBNP 205 pg/mL (<300); Potassium 4.0 mmol/L (3.5-5.1); Sodium 143 mmol/L (136-145); Total Protein 7.3 g/dL (6.4-8.2); Troponin I 197 ng/L (<or=76)
--- NOTE | 2024-12-04 22:00 | NUR.NOTE ---
Patient presented to the ER with history of chest pain one hour prior to coming to the hospital. Patient had an ablation done on November at [facility]. Patient HR was fluctuating between 94-194bpm. Reported sternal chest pain was non radiating, however experiencing belching intermittently. Valsalvar maneuver were attempted x [address] [facility] which was unsuccessful. Adenosine 6mg was then administer due to unsuccessful valsalvar maneuver. Patient HR remains in the 180s-201. Dr. Conti recommended synchronizing cardioversion which patient agreed to. Protocol was followed, Provider, RT, Nursing and Techs were present. 2102 45mg proprofol pushed given by provider, then at 2103 another 45mg was administered by Provider. 2103 1st synchronize cardioversion was administered. Patient HR went down to 100 but went back up into the 180s-190s. another shock was administered at 2104 after a few minutes HR went down to 97-140 and then converted into NSR and remains at 94bpm.
[2024-12-04 22:14] LABS: Troponin I 150 ng/L (<or=76)
--- NOTE | 2024-12-04 22:58 | W.PM.HP.N ---
Date of service: 12/04/24 Time of Service: 23:00 Assessment and Plan Assessment and plan (1) Atrial fibrillation with rapid ventricular response: Start date: 12/04/24 Status: Acute Assessment and plan: This is a 74-year-old gentleman with paroxysmal atrial fibrillation with rapid ventricular response recurring after ablation 11/30/2024. He did respond to cardioversion with 2 shocks of 200 J with propofol sedation. He went into atrial flutter and now is in normal sinus rhythm. The case was discussed with [facility] cardiology who recommended holding flecainide to let the patient washout but plan to transfer to [facility] for further evaluation and initiation of new antiarrhythmic dofetilide with inpatient monitoring. They did recommend intermittent IV diltiazem 10 to 15 mg if he had recurrent tachycardia with atrial fibrillation. He is on Eliquis which will be continued. His metoprolol will be held. Accepting physician is Dr. Rodriguez. The patient is a full code. (2) Elevated troponin level not due myocardial infarction: Start date: 12/04/24 Status: Acute Assessment and plan: Patient elevations were increased despite no ischemic changes on EKG with his tachycardia. They are under 200 and trending downward. This is thought to be demand ischemia. Will trend troponins while observing on pvc monitor in ICU until transfer to [facility]. (3) Anxiety disorder: Status: Chronic Assessment and plan: Patient will receive usual dose of gabapentin 300 mg tonight with Valium if needed. Patient does have a generalized anxiety disorder. He is coping fairly well. History of Present Illness History of Present Illness Chief Complaint: Chest pressure and pain with rapid heart rate. Narrative: This is a 74-year-old male patient has a history of paroxysmal atrial fibrillation with rapid ventricular response not completely controlled on medical therapy though it had been in sinus rhythm on flecainide for couple years prior to this presentation. Because he was having breakthrough episodes of atrial fibrillation with tachycardia and palpitations which were symptomatic, he went through ablation therapy 11/30/2024 at [facility]. He did return to a controlled rate and rhythm and continue his medications including Eliquis returning home. On the day of presentation the patient had sudden onset of palpitation with atrial relation symptoms as before and appeared more tachycardic than his episodes in the past. Because of his continued symptoms despite maneuvers to attempt resolution of his atrial fibrillation, he reported to the ED and eventually was cardioverted with 200 J shock therapy x 2. He went into a more normal rate with atrial flutter transiently and then sinus rhythm. At the time saw the patient he was in sinus rhythm and comfortable. ED provider did discuss the case with [facility] cardiology who recommended admission for observation and intermittent treatment with IV diltiazem if needed for heart rate control until he can be transferred to [facility] and be evaluated by their cardiology service with Dr. Rodriguez as excepting attending. His troponins were elevated and thought to be demand ischemia and will be treated. He will be admitted to the ICU for observation and cardiac monitoring. At the time I saw the patient he was in sinus rhythm and comfortable but very anxious and talkative. He is a full code. Review of Systems Narrative: 13 point review of systems otherwise unrevealing or stable. Patient has not been having any bleeding on Eliquis and no peripheral edema with his episodes recently. He is very physically active. PFSH All Active Problems Elevated troponin level not due myocardial infarction (Acute) Atrial fibrillation with rapid ventricular response (Acute) Elevated serum creatinine (Acute) Shingles (Acute) BPH (benign prostatic hyperplasia) (Chronic) Erectile dysfunction (Acute) Anxiety disorder (Chronic) Tinnitus, bilateral (Acute) Osteoarthritis cervical spine (Acute) RLS (restless legs syndrome) (Chronic) 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) Medical History Chest pain Social History Smoking/Tobacco Use Status: Never Smoking risk assessment performed?: Yes Alcohol Intake: current Alcohol Intake frequency: holidays/special occasions only Drug use: Never Substance use type: does not use Housing: house Do you feel safe at home: Yes Do you feel safe in your relationship?: Yes Meds Allergies and Home Medications Allergies Allergy/AdvReac Type Severity Reaction Status Date / Time No Known Allergies Allergy Verified 12/04/24 23:41 Home Medications ?Medication ?Instructions ?Recorded ?Confirmed ?Type aspirin 81 mg chewable tablet 81 mg PO DAILY PRN 06/17/15 12/04/24 History flecainide 50 mg tablet (Tambocor) 50 mg PO BID 06/17/15 12/04/24 History gabapentin 100 mg capsule 200 mg PO HS 09/23/20 12/04/24 History ascorbic acid (vitamin C) 1,000 mg 4 g PO DAILY 09/24/20 12/04/24 History tablet cholecalciferol (vitamin D3) 25 75 mcg PO DAILY PRN 09/24/20 12/04/24 History mcg (1,000 unit) capsule folic acid 400 mcg tablet 0.8 mg PO DAILY 09/24/20 12/04/24 History lysine 500 mg tablet (L-Lysine) 1,000 mg PO DAILY PRN 09/24/20 12/04/24 History magnesium 250 mg tablet 250 mg PO DAILY 09/24/20 12/04/24 History omega-3 fatty acids 1,000 mg 2,000 mg PO DAILY 09/24/20 12/04/24 History capsule (Fish Oil Concentrate) turmeric root extract 500 mg 500 mg PO DAILY 09/24/20 12/04/24 History capsule vitamin B complex (Super B-50 1 cap PO DAILY 09/24/20 12/04/24 History Complex capsule) apixaban 5 mg tablet (Eliquis) 5 mg PO BID #60 tabs 06/10/24 12/04/24 Rx diazepam 5 mg tablet 5 mg PO PRN 12/04/24 12/04/24 History metoprolol succinate 25 mg 25 mg PO PRN 12/04/24 12/04/24 History tablet,extended release 24 hr pantoprazole 40 mg tablet,delayed 40 mg PO DAILY 12/04/24 12/04/24 History release Exam Narrative Exam Narrative: General: Patient appears appropriate for age, alert and oriented x 3 and in mild distress from his recent events and a cardioversion in the ED. He is lying comfortably in bed at the time my exam and not sedated. HEENT: Normocephalic, eyes with pupils equal and react to light symmetrically, extraocular movement intact and sclera anicteric. Oropharynx with moist mucosa. Neck: Supple without JVD. Back: Stooped posture without CVA tenderness. Lungs: Aeration clear to auscultation and percussion with no focalizing rales or rhonchi. Heart: Regular rate and rhythm with no appreciable murmur or gallop at the time of my exam. Abdomen: Obese contour, soft and nontender to palpation with no palpable hepatosplenomegaly. Bowel sounds positive all quadrants. Genitalia/rectal: Exam deferred. Extremities: No clubbing, cyanosis or pitting edema. Good capillary refill. Skin: Normal color, warm and dry. Neuro: Cranial nerves II through XII gross intact, no focalized motor deficits or tremor. Psych: Anxious affect with normal mood. No abnormal thought processes. Remote and recent memory intact. Results Labs 12/04/24 20:19 12/04/24 20:19 Labs: Laboratory Results - last 24 hr 12/04/24 12/04/24 12/04/24 20:19 21:35 21:52 WBC 6.95 RBC 4.39 Hgb 13.9 Hct 41.3 MCV 94 MCH 31.7 MCHC 33.7 RDW 13.1 Plt Count 134 MPV 12.4 H Immature Gran % 0.3 Neutrophils % 60.7 Lymphocytes % 29.4 Monocytes % 6.6 Eosinophils % 1.7 Basophils % 1.3 Nucleated RBC % 0.0 Absolute Neutrophils 4.22 Absolute Lymphocytes 2.04 Absolute Monocytes 0.46 Absolute Eosinophils 0.12 Absolute Basophils 0.09 PT 9.9 INR 1.0 Sodium 143 Potassium 4.0 Chloride 106 Carbon Dioxide 25.4 Anion Gap 11.6 H BUN 21 H Creatinine 1.0 Est GFR (CKD-EPI 2020) 78.49 Glucose 123 H Calcium 8.9 Magnesium 1.9 Total Bilirubin 0.6 AST 69 H ALT 83 H Alkaline Phosphatase 97 Troponin I 197 H* Cancelled 150 H* NT-Pro-B Natriuret Pep 205 Total Protein 7.3 Albumin 4.0 Last Vital Signs Temp 36.5 C 12/04/24 21:00 Pulse 94 H 12/04/24 22:25 Resp 10 L 12/04/24 22:25 BP 120/73 12/04/24 22:25 Pulse Ox 96 12/04/24 22:25 PAWSS Have you Been Recently Intoxicated or Drunk Within the Last 30 days?: No Have you Ever Experienced Previous Episodes of Alcohol Withdrawal?: No Have you ever Experienced Withdrawal Seizures?: No Have you ever Experienced Delirium Tremens(DT)s?: No Have you ever undergone Alcohol Rehabilitation Treatment (i.e, inpt ot outpatient treatment programs)?: No Have you ever Experienced Blackouts?: No Have you ever Combined Alcohol with other Downers within the last 90 days?: No Have you ever Combined Alcohol with any other Substance of Abuse during the last 90 days?: No Positive Blood Alcohol level on Presentation? [PCS.BAL]: No Evidence of Increased Autonomic Activity (i.e. HR>120, tremor, sweating, agitation, nausea)?: No Result: 0 Time Spent Time spent with Patient: >75 minutes Time was spent: preparing to see the patient(eg.review tests), obtaining and/or reviewing separately otained hiistory, ordering medications,tests, procedures, indepentently interpreting results, counseling the patient and care coordination
[2024-12-04 23:57] LABS: Troponin I 172 ng/L (<or=76)
[2024-12-05] VITALS (71 sets, daily range): BP systolic 110–145; BP diastolic 62–82; PULSE 57–92; RESP 8–29; TEMP 36.2–37.7; O2SAT 85–97
[2024-12-05 00:10] LABS: COVID-19 PCR Negative (Negative); RSV PCR Negative (Negative)
[2024-12-05] MEDS: Gabapentin 300 MG CAP PO (00:42)
[2024-12-05 00:57] LABS: Troponin I 187 ng/L (<or=76)
[2024-12-05 05:56] LABS: HCT 36.8 % (40.0-50.0); HGB 12.2 g/dL (13.5-17.5); MCH 31.2 pg (27.0-33.0); MCHC 33.2 % (32.0-36.0); MCV 94 fL (80-95); MPV 11.5 fL (8.0-11.0); Platelet Count 129 10^3/uL (130-400); RBC 3.91 10^6/uL (4.36-5.78); RDW 13.3 % (11.8-14.1); RDW-SD 45.7 fL; WBC 6.40 10^3/uL (4.4-10.8)
[2024-12-05 06:20] LABS: ALT 140 U/L (16-63); AST 80 U/L (15-37); Albumin 3.4 g/dL (3.4-5.0); Alkaline Phosphatase 80 U/L (46-116); Anion Gap 7.1 mmol/L (3-11); BUN 20 mg/dL (7-18); Bilirubin, Total 0.8 mg/dL (0.2-1.0); CO2 27.9 mmol/L (21.0-32.0); Calcium 8.8 mg/dL (8.5-10.1); Chloride 110 mmol/L (98-107); Estimated GFR 89.07 (mL/min/1.73m2); Glucose 111 mg/dL (74-106); Potassium 4.1 mmol/L (3.5-5.1); Sodium 145 mmol/L (136-145); Total Protein 6.1 g/dL (6.4-8.2)
[2024-12-05 06:27] LABS: TSH 2.30 uIU/mL (0.36-3.74)
[2024-12-05 06:41] LABS: Troponin I 209 ng/L (<or=76)
[2024-12-05 06:59] LABS: INR 1.0 (0.9-1.1); Prothrombin Time 10.4 sec (9.1-11.1)
[2024-12-05] MEDS: Ascorbic Acid 500 MG TAB 4000 MG PO (07:59)
[2024-12-05] MEDS: Vitamins B Comp w/C TAB 1 TAB PO (07:59)
[2024-12-05] MEDS: Apixaban 5 MG TAB PO ×2 (07:59→20:15)
[2024-12-05] MEDS: Pantoprazole 40 MG TABCR PO (07:59)
[2024-12-05] MEDS: Normal Saline Flush 10 ML SYR IVP ×2 (08:00→20:16)
[2024-12-05] MEDS: Omega-3 Fatty Acids 1000 MG CAP 2000 MG PO (08:00)
[2024-12-05] MEDS: Magnesium Oxide 400 MG TAB PO (08:27)
--- NOTE | 2024-12-05 10:36 | PHA.REVIEW2 ---
Pharmacy Admission Review Admission Clinical Review Admission Pharmacy Review: Elevated troponin level not due myocardial infarction (Acute) Atrial fibrillation with rapid ventricular response (Acute) No Known Allergies Allergy (Verified 12/04/24 23:41) Resuscitation Status Full Code Height 6 ft Weight 91.5 kg Pharmacy Admission Review Renal Dosing Renal Dosing: BUN 20 mg/dL (7-18) H 12/05/24 05:35 Creatinine 0.9 mg/dL (0.70-1.30) 12/05/24 05:35 Medications needing adjustments: Reviewed Anticoagulation Anticoagulation: Hgb 12.2 g/dL (13.5-17.5) L 12/05/24 05:35 Hct 36.8 % (40.0-50.0) L 12/05/24 05:35 Plt Count 129 10^3/uL (130-400) L 12/05/24 05:35 INR 1.0 (0.9-1.1) 12/05/24 05:35 Creatinine 0.9 mg/dL (0.70-1.30) 12/05/24 05:35 Medications: Apixaban Opiate Usage Evaluate Pain Scale/Pains Meds: N/A Relevant Labs Relevant Labs: NO ADJUSTMENTS NEEDED Sodium 145 mmol/L (136-145) 12/05/24 05:35 Potassium 4.1 mmol/L (3.5-5.1) 12/05/24 05:35 Chloride 110 mmol/L (98-107) H 12/05/24 05:35 Magnesium 1.9 mg/dL (1.8-2.4) 12/04/24 20:19 Electrolytes, C-Reactive P, ESR: Reviewed DM Control DM Control: [id number]. NO HISTORY OF DM. Cardiac Review Cardiac Review: BP 122/78 HR=65. NO INTERVENTION. Troponin I 209 ng/L (<or=76) H* 12/05/24 05:35 NT-Pro-B Natriuret Pep 205 pg/mL (<300) 12/04/24 20:19 BP, HR, EF%: Reviewed QTc Review QTc: Reviewed List meds needing interventions: [id number]. NO MEDS NEED INTERVENTION. IV to PO Switch IV Medications: Reviewed (ALL MEDS PO) Home Meds Home Med List reviewed: Reviewed Relevent Home Meds Not ordered & why?: FLECAINIDE & METOPROLOL HELD PER [facility]. S/P CARDIOVERSION. Current Meds Current Medication Order Review: Reviewed Comments: NO INTERVENTION Pharmacy Antibiotic Review Comments: NO ANTIBIOTICS
--- NOTE | 2024-12-05 13:50 | CHAPLAIN ---
Jeremie was resting in bed with eye patches on. He responded when I knocked on the door. He said his is in the cafeteria getting some lunch. Jeremie said he is in sinus rhythm now and would like to go home but is waiting for a bed at [facility] to open up. Jeremie meditates regularly which he said helps with relaxation and comfort. He's been doing this for many years.
--- NOTE | 2024-12-05 16:15 | PDOC.CMIN ---
Date of service: 12/05/24 Time of Service: 16:15 Care Management Initial Assmt Initial Assessment Reason for Hospitalization: PAF with RVR Functional Status/Living Situation Patient Presentation: Jeremie was lying in bed when CM met with him. He was visiting with his , Irene. They were both pleasant and engaged well in conversation. Jeremie stated that they live in [place] with a cat, mini donkeys and a sheep. They do not have children. 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 He stated that he is very active and independent, and is otherwise healthy. Per report, Jeremie responded to cardioversion and is now in normal sinus rhythm. Per MD, he had already been accepted to [facility] in transfer; MD reaching out to consult with [facility] for next steps of his plan. Jeremie reported that he would prefer to discharge home, as he feels good, and would follow up with cardiology outpatient. He is agreeable to staying while MD consults [facility]. CM will continue to follow. Town of Residence: [place] Resides with: Spouse Significant Other/Family: Out of area Natural Supports: , Irene Employment Status: Retired Instrumental Activities of Daily Living (ADLs): Independent Activities/Hobbies/SocialSupport: Very active, stays busy with maintaining their home/property. Medications Medication Management: No Issues/Barriers identified Physical Functioning/Mobility Assistive Device: none Advance Directives Advance Directives: Do you have an Advance Directive: Y 11/30/19, 11:14 AD On File at [facility]: Y 12/04/24, 23:34 Date Asked AD Date Reviewed 12/04/24 12/04/24, 23:34 COLST On File at [facility] No 05/28/, 20:16 COLST Date Scanned Code Status Resuscitation Status Full Code Insurance Coverage/Financial Issues Insurance: [facility] supplement Care Team Visit Care Team Role Provider Type John Giron MD MD [facility] STAFF PHYSICIAN Monica Sol Primary Care Provider NURSE PRACTITIONER Pooja Rose MD Emergency Provider [facility] STAFF PHYSICIAN Mamadou Cruz Admit Provider NON-[facility] STAFF PHYSICIAN Attending Provider Discharge Potential Discharge Needs: PCP F/U Appt Anticipated Barriers to Discharge: None Identified Patient/Family Education Needs: Review discharge instructions, discuss Ask Me Three Transportation: Private vehicle Plan: Anticipate Jeremie will return home once medically cleared. His will drive him home via private vehicle. He will follow up with his PCP and discharge plan of care. CM will continue to follow. Social Determinants of Health Screening Social Determinants of health last assessed in clinic: 12/05/24 Will the Patient Participate in the Screening?: Yes Do you worry about having a steady place to live?: no Problems where you live: no known problems In the past 12 months, have you had to go without electric, gas, oil or water in your home?: no 1. Within the past 12 months, we worried whether our food would run out before we got money to buy more.: Never true 2. Within the past 12 months, the food we bought just didn't last and we didn't have money to get more.: Never true Has lack of transportation kept you from medical appointments or from doing things needed for daily living?: no Has anyone in your life made you feel unsafe or unsupported?: no How hard is it for you to pay for the very basics like food, housing, medical care, and heating? 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 arre very well educated PFS All Active Problems Elevated troponin level not due myocardial infarction (Acute) Atrial fibrillation with rapid ventricular response (Acute) Elevated serum creatinine (Acute) Shingles (Acute) BPH (benign prostatic hyperplasia) (Chronic) Erectile dysfunction (Acute) Anxiety disorder (Chronic) Tinnitus, bilateral (Acute) Osteoarthritis cervical spine (Acute) RLS (restless legs syndrome) (Chronic) 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) Medical History Chest pain Social History Smoking/Tobacco Use Status: Never Smoking risk assessment performed?: Yes Alcohol Intake: current Alcohol Intake frequency: holidays/special occasions only Drug use: Never Substance use type: does not use Housing: house Do you feel safe at home: Yes Do you feel safe in your relationship?: Yes
--- NOTE | 2024-12-05 17:19 | PGE_ITS ---
Date of Service Date of service: 12/05/24 Time of Service: 17:20 Assessment and Plan Assessment and plan (1) Atrial fibrillation with rapid ventricular response: Start date: 12/04/24 Status: Acute Assessment and plan: -history of paroxysmal atrial fibrillation and presented in rapid ventricular -recent abblation on 11/30/2024. -s/p cardioversion with 2 shocks of 200 J with propofol sedation in the ED resulting in return to [facility] -case was discussed with [facility] cardiology who recommended holding flecainide to let the patient washout but plan to transfer to [facility] for further evaluation and initiation of new antiarrhythmic dofetilide; Dr. Rodriguez is accepting physician -if patient requires additional rate control, rec IV diltiazem 10 to 15 mg -continue home Eliquis, hold home metoprolol (2) Elevated troponin level not due myocardial infarction: Start date: 12/04/24 Status: Acute Assessment and plan: -secondary to demand (3) Anxiety disorder: Status: Chronic Assessment and plan: -continue home medication regimen Subjective Subjective Interval history since last seen: Patient states that he is doing well, understands the plan to await for bed availability at [facility]. Otherwise he has no other complaints or concerns at this time. Exam Narrative Exam Narrative: Well-appearing older gentleman laying in bed in no acute distress, ANO x 4, heart regular rhythm, lungs clear to auscultation bilaterally, abdomen soft, nontender, nondistended Objective Last Vital Signs Temp 98.6 F 12/05/24 12:32 Pulse 68 12/05/24 15:00 Resp 14 12/05/24 15:00 BP 125/82 12/05/24 12:29 Pulse Ox 95 12/05/24 15:00 Laboratory Results - last 24 hr 12/04/24 12/04/24 12/04/24 20:19 21:35 21:52 WBC 6.95 RBC 4.39 Hgb 13.9 Hct 41.3 MCV 94 MCH 31.7 MCHC 33.7 RDW 13.1 Plt Count 134 MPV 12.4 H Immature Gran % 0.3 Neutrophils % 60.7 Lymphocytes % 29.4 Monocytes % 6.6 Eosinophils % 1.7 Basophils % 1.3 Nucleated RBC % 0.0 Absolute Neutrophils 4.22 Absolute Lymphocytes 2.04 Absolute Monocytes 0.46 Absolute Eosinophils 0.12 Absolute Basophils 0.09 PT 9.9 INR 1.0 Sodium 143 Potassium 4.0 Chloride 106 Carbon Dioxide 25.4 Anion Gap 11.6 H BUN 21 H Creatinine 1.0 Est GFR (CKD-EPI 2020) 78.49 Glucose 123 H Calcium 8.9 Magnesium 1.9 Total Bilirubin 0.6 AST 69 H ALT 83 H Alkaline Phosphatase 97 Troponin I 197 H* Cancelled 150 H* NT-Pro-B Natriuret Pep 205 Total Protein 7.3 Albumin 4.0 TSH COVID-19 Source SARS-CoV-2 (PCR) Influenza Type A (PCR) Influenza Type B (PCR) RSV (PCR) 12/04/24 12/04/24 12/05/24 23:25 23:27 00:20 WBC RBC Hgb Hct MCV MCH MCHC RDW Plt Count MPV Immature Gran % Neutrophils % Lymphocytes % Monocytes % Eosinophils % Basophils % Nucleated RBC % Absolute Neutrophils Absolute Lymphocytes Absolute Monocytes Absolute Eosinophils Absolute Basophils PT INR Sodium Potassium Chloride Carbon Dioxide Anion Gap BUN Creatinine Est GFR (CKD-EPI 2020) Glucose Calcium Magnesium Total Bilirubin AST ALT Alkaline Phosphatase Troponin I 172 H* 187 H* NT-Pro-B Natriuret Pep Total Protein Albumin TSH COVID-19 Source Nasopharynx SARS-CoV-2 (PCR) Negative Influenza Type A (PCR) Negative Influenza Type B (PCR) Negative RSV (PCR) Negative 12/05/24 05:35 WBC 6.40 RBC 3.91 L Hgb 12.2 L Hct 36.8 L MCV 94 MCH 31.2 MCHC 33.2 RDW 13.3 Plt Count 129 L MPV 11.5 H Immature Gran % Neutrophils % Lymphocytes % Monocytes % Eosinophils % Basophils % Nucleated RBC % Absolute Neutrophils Absolute Lymphocytes Absolute Monocytes Absolute Eosinophils Absolute Basophils PT 10.4 INR 1.0 Sodium 145 Potassium 4.1 Chloride 110 H Carbon Dioxide 27.9 Anion Gap 7.1 BUN 20 H Creatinine 0.9 Est GFR (CKD-EPI 2020) 89.07 Glucose 111 H Calcium 8.8 Magnesium Total Bilirubin 0.8 AST 80 H ALT 140 H Alkaline Phosphatase 80 Troponin I 209 H* NT-Pro-B Natriuret Pep Total Protein 6.1 L Albumin 3.4 TSH 2.30 COVID-19 Source SARS-CoV-2 (PCR) Influenza Type A (PCR) Influenza Type B (PCR) RSV (PCR) PAWSS Have you Been Recently Intoxicated or Drunk Within the Last 30 days?: No Have you Ever Experienced Previous Episodes of Alcohol Withdrawal?: No Have you ever Experienced Withdrawal Seizures?: No Have you ever Experienced Delirium Tremens(DT)s?: No Have you ever undergone Alcohol Rehabilitation Treatment (i.e, inpt ot outpatient treatment programs)?: No Have you ever Experienced Blackouts?: No Have you ever Combined Alcohol with other Downers within the last 90 days?: No Have you ever Combined Alcohol with any other Substance of Abuse during the last 90 days?: No Positive Blood Alcohol level on Presentation? [PCS.BAL]: No Evidence of Increased Autonomic Activity (i.e. HR>120, tremor, sweating, agitation, nausea)?: No Result: 0 Time Spent with Patient Time Spent with Patient: >50 minutes Time was spent: preparing to see the patient(eg.review tests), obtaining and/or reviewing separately otained hiistory, ordering medications,tests, procedures, referring, communicating with other health auto care center manager, indepentently interpreting results, counseling the patient and care coordination
[2024-12-05] MEDS: Gabapentin 100 MG CAP 200 MG PO (20:15)
[2024-12-06] VITALS (99 sets, daily range): BP systolic 99–153; BP diastolic 52–106; PULSE 42–207; RESP 5–51; O2SAT 79–98
--- NOTE | 2024-12-06 05:15 | RT.EKG_ITS ---
APPROVED REPORT Exam: Resting ECG Reason for Exam: PAF with RVR Patient Location: I HR:100 bpm ECG Measurements Heart Rate 100 AXIS MO 233 P 37 QRSd 96 QRS -2 QT 346 T 8 QTc 447 Conclusion Sinus tachycardia...rate> 99 Prolonged MO interval...MO >215, V-rate 91-120 Borderline low voltage, extremity leads...all extremity leads <0.6mV
--- NOTE | 2024-12-06 05:18 | NUR.NOTE ---
0506- pt went into run of PAF with RVR. Dr Giron notified and orders recieved. Stat EKG done.
--- NOTE | 2024-12-06 05:41 | NUR.NOTE ---
0540-Pt remains in Afib with HR in the 90;s. feels much better now. No meds given. aware.
[2024-12-06] MEDS: dilTIAZem 25 MG/5 ML VIAL 15 MG IVP ×2 (06:47→07:42)
[2024-12-06] MEDS: Normal Saline Flush 10 ML SYR IVP ×2 (08:08→22:59)
[2024-12-06] MEDS: Omega-3 Fatty Acids 1000 MG CAP 2000 MG PO (08:09)
[2024-12-06] MEDS: Vitamins B Comp w/C TAB 1 TAB PO (08:09)
[2024-12-06] MEDS: Apixaban 5 MG TAB PO ×2 (08:09→19:03)
[2024-12-06] MEDS: Ascorbic Acid 500 MG TAB 4000 MG PO (08:09)
[2024-12-06] MEDS: Pantoprazole 40 MG TABCR PO (08:09)
[2024-12-06] MEDS: Magnesium Oxide 400 MG TAB PO (08:10)
[2024-12-06] MEDS: dilTIAZem 125 MG in Normal Saline 100 ML 10 MG IV (08:20)
[2024-12-06 09:27] LABS: HCT 41.6 % (40.0-50.0); HGB 14.2 g/dL (13.5-17.5); MCH 32.3 pg (27.0-33.0); MCHC 34.1 % (32.0-36.0); MCV 95 fL (80-95); MPV 11.4 fL (8.0-11.0); Platelet Count 141 10^3/uL (130-400); RBC 4.40 10^6/uL (4.36-5.78); RDW 13.0 % (11.8-14.1); RDW-SD 45.0 fL; WBC 7.29 10^3/uL (4.4-10.8)
[2024-12-06 09:56] LABS: Magnesium 2.0 mg/dL (1.8-2.4)
[2024-12-06 10:09] LABS: ALT 110 U/L (16-63); AST 38 U/L (15-37); Albumin 3.9 g/dL (3.4-5.0); Alkaline Phosphatase 85 U/L (46-116); Anion Gap 7.8 mmol/L (3-11); BUN 23 mg/dL (7-18); Bilirubin, Total 0.7 mg/dL (0.2-1.0); CO2 28.2 mmol/L (21.0-32.0); Calcium 9.3 mg/dL (8.5-10.1); Chloride 106 mmol/L (98-107); Estimated GFR 78.49 (mL/min/1.73m2); Glucose 129 mg/dL (74-106); Potassium 4.2 mmol/L (3.5-5.1); Sodium 142 mmol/L (136-145); Total Protein 7.0 g/dL (6.4-8.2); Troponin I 74 ng/L (<or=76)
--- NOTE | 2024-12-06 11:36 | PDOC.CMPRO ---
Date of service: 12/06/24 Time of Service: 11:36 Care Management Progress Note Progress Note Text Progress Note Text: Jeremie was sitting up in bed when CM met with him. He was very pleasant in interaction and easily engaged with CM. Jeremie was admitted with Afib with RVR. Initially his heart rate was between 150 and 200, but with treatment (Diltiazem), it has come down to the 60s and 70s. This afternoon it got as low as 42 and the diltiazem drip was stopped and PO Diltiazem was ordered. Jeremie has been accepted in transfer to [facility] when a bed becomes available. He informed CM that he has been told it will likely be tomorrow or Wednesday. Jeremie shared that he has no complaints and has had a good experience at [facility] thus far. Discharge Potential Discharge Needs: PCP F/U Appt and Other (cardioolgy) Anticipated Barriers to Discharge: None Identified Patient/Family Education Needs: Review discharge instructions, discuss Ask Me Three Transportation: Private vehicle Plan: Anticipate Jeremie will be transferred to [facility] when a bed becomes available. He will follow up with their rotary drum tanner and transport via EMS. [facility] will continue to follow. Social Determinants of Health Screening Social Determinants of health last assessed in clinic: 12/06/24 Will the Patient Participate in the Screening?: Yes Do you worry about having a steady place to live?: no Problems where you live: no known problems In the past 12 months, have you had to go without electric, gas, oil or water in your home?: no 1. Within the past 12 months, we worried whether our food would run out before we got money to buy more.: Never true 2. Within the past 12 months, the food we bought just didn't last and we didn't have money to get more.: Never true Has lack of transportation kept you from medical appointments or from doing things needed for daily living?: no Has anyone in your life made you feel unsafe or unsupported?: no How hard is it for you to pay for the very basics like food, housing, medical care, and heating? 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
--- NOTE | 2024-12-06 18:24 | W.PM.PROGNOT ---
Date of Service Date of service: 12/06/24 Time of Service: 18:24 Assessment and Plan Assessment and plan (1) Atrial fibrillation with rapid ventricular response: Start date: 12/04/24 Status: Acute Assessment and plan: -history of paroxysmal atrial fibrillation and presented in rapid ventricular -recent abblation on 11/30/2024. -s/p cardioversion with 2 shocks of 200 J with propofol sedation in the ED resulting in return to [facility], but continues to recur -case was discussed with [facility] cardiology who recommended holding flecainide to let the patient washout but plan to transfer to [facility] for further evaluation and initiation of new antiarrhythmic dofetilide; Dr. Rodriguez is accepting physician -Transitioned to diltiazem drip for rate control 12/06, plan to transition to oral dilt. -continue home Eliquis, hold home metoprolol (2) Elevated troponin level not due myocardial infarction: Start date: 12/04/24 Status: Acute Assessment and plan: -secondary to demand, normalized on repeat this morning. (3) Anxiety disorder: Status: Chronic Assessment and plan: -continue home medication regimen. Discussed relaxation/medication to increase vagal tone. (4) Elevated liver enzymes: Status: Acute Assessment and plan: This is new this admission in setting of Afib, cardioversion. Combination with borderline thrombocytopenia is concerning for fibrosis, but trend down this morning. Continue to monitor. Subjective Subjective Patient reports: tolerating a regular diet and voiding w/o difficulty; denies nausea, vomiting or fever Interval history since last seen: Events: Required pushes of IV diltiazem overnight for Afib with RVR He feels well currently (when HR in 70s). No chest pain. No SOB. Exam Narrative Exam Narrative: Well-appearing older gentleman laying in bed in no acute distress, ANO x 4, heart irregularly irregular rhythm, lungs clear to auscultation bilaterally, abdomen soft, nontender, nondistended. Extremities without cyanosis or edema Objective Last Vital Signs Temp 37.0 C 12/05/24 23:15 Pulse 42 L 12/06/24 15:45 Resp 13 12/06/24 15:45 BP 99/64 L 12/06/24 15:00 Pulse Ox 84 L 12/06/24 15:45 Laboratory Results - last 24 hr 12/06/24 09:05 WBC 7.29 RBC 4.40 Hgb 14.2 D Hct 41.6 MCV 95 MCH 32.3 MCHC 34.1 RDW 13.0 Plt Count 141 MPV 11.4 H Sodium 142 Potassium 4.2 Chloride 106 Carbon Dioxide 28.2 Anion Gap 7.8 BUN 23 H Creatinine 1.0 Est GFR (CKD-EPI 2020) 78.49 Glucose 129 H Calcium 9.3 Magnesium 2.0 Total Bilirubin 0.7 AST 38 H ALT 110 H Alkaline Phosphatase 85 Troponin I 74 Total Protein 7.0 Albumin 3.9 PAWSS Have you Been Recently Intoxicated or Drunk Within the Last 30 days?: No Have you Ever Experienced Previous Episodes of Alcohol Withdrawal?: No Have you ever Experienced Withdrawal Seizures?: No Have you ever Experienced Delirium Tremens(DT)s?: No Have you ever undergone Alcohol Rehabilitation Treatment (i.e, inpt ot outpatient treatment programs)?: No Have you ever Experienced Blackouts?: No Have you ever Combined Alcohol with other Downers within the last 90 days?: No Have you ever Combined Alcohol with any other Substance of Abuse during the last 90 days?: No Positive Blood Alcohol level on Presentation? [PCS.BAL]: No Evidence of Increased Autonomic Activity (i.e. HR>120, tremor, sweating, agitation, nausea)?: No Result: 0 Time Spent with Patient Time Spent with Patient: >50 minutes Time was spent: preparing to see the patient(eg.review tests), obtaining and/or reviewing separately otained hiistory, ordering medications,tests, procedures, referring, communicating with other health care transport nurse, indepentently interpreting results, counseling the patient and care coordination
[2024-12-06] MEDS: dilTIAZem 30 MG TAB PO (19:02)
[2024-12-06] MEDS: Gabapentin 100 MG CAP 200 MG PO (22:13)
[2024-12-07] VITALS (23 sets, daily range): BP systolic 131–144; BP diastolic 84–100; PULSE 67–129; RESP 6–31; TEMP 36.9–37.4; O2SAT 96–100
[2024-12-07] MEDS: diazePAM 5 MG TAB PO (02:21)
[2024-12-07] MEDS: dilTIAZem 125 MG in Normal Saline 100 ML 15 MG IV (02:24)
[2024-12-07 07:06] LABS: ALT 73 U/L (16-63); AST 21 U/L (15-37); Albumin 3.7 g/dL (3.4-5.0); Alkaline Phosphatase 84 U/L (46-116); Bilirubin, Direct 0.2 mg/dL (0.0-0.2); Bilirubin, Total 0.9 mg/dL (0.2-1.0); Total Protein 6.8 g/dL (6.4-8.2)
[2024-12-07] MEDS: Pantoprazole 40 MG TABCR PO (07:43)
[2024-12-07] MEDS: Magnesium Oxide 400 MG TAB PO (07:44)
[2024-12-07] MEDS: Apixaban 5 MG TAB PO (07:44)
[2024-12-07] MEDS: Omega-3 Fatty Acids 1000 MG CAP 2000 MG PO (07:44)
[2024-12-07] MEDS: Normal Saline Flush 10 ML SYR IVP (07:47)
[2024-12-07] MEDS: Ascorbic Acid 500 MG TAB 4000 MG PO (07:47)
[2024-12-07] MEDS: dilTIAZem 30 MG TAB PO (08:33)
--- NOTE | 2024-12-07 08:51 | PDOC.CMPRO ---
Date of service: 12/07/24 Time of Service: 08:52 Care Management Progress Note Discharge Potential Discharge Needs: Other (transfer to [facility]) Anticipated Barriers to Discharge: Bed availability Patient/Family Education Needs: Review discharge instructions, discuss Ask Me Three Transportation: EMS Plan: Anticipate Jeremie will be transferred to [facility] when a bed becomes available. He will follow up with their real estate accountant and transport via EMS. CM will continue to follow. Social Determinants of Health Screening Social Determinants of health last assessed in clinic: 12/06/24 Will the Patient Participate in the Screening?: Yes Do you worry about having a steady place to live?: no Problems where you live: no known problems In the past 12 months, have you had to go without electric, gas, oil or water in your home?: no Has lack of transportation kept you from medical appointments or from doing things needed for daily living?: no Has anyone in your life made you feel unsafe or unsupported?: no How hard is it for you to pay for the very basics like food, housing, medical care, and heating? 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
[2024-12-07] MEDS: dilTIAZem 125 MG in Normal Saline 100 ML IV (09:44)
[2024-12-07] MEDS: dilTIAZem 60 MG TAB PO (14:35)
--- NOTE | 2024-12-07 14:45 | DSE_ITS ---
Date of service: 12/07/24 Time of Service: 14:46 DS: Diagnosis Discharge Diagnosis (1) Atrial fibrillation with rapid ventricular response: Status: Acute (2) Elevated troponin level not due myocardial infarction: Status: Acute (3) Anxiety disorder: Status: Chronic (4) Elevated liver enzymes: Status: Acute Discharge Plan Disposition Patient Disposition: Transfer-Acute Inpatient Care Specific Acute Inpt Facility: [facility] Condition: Fair Discharge Details Reason For Visit: PAF with RVR Admit Date/Time: 12/04/24 23:17 Admit Provider: Mamadou Cruz Attending Provider: Mamadou Cruz Primary Care Provider: Monica Sol Hospital Course Hospital Course: 74-year-old gentleman with paroxysmal atrial fibrillation with rapid ventricular response recurring after ablation 11/30/2024. He did respond to cardioversion with 2 shocks of 200 J with propofol sedation in the ED, transitioning into atrial flutter and then normal sinus rhythm. The case was discussed with [facility] cardiology who recommended holding flecainide to let the patient washout but plan to transfer to [facility] for further evaluation and initiation of new antiarrhythmic dofetilide with inpatient monitoring. He had recurrent atrial fibrillation which initially responded to IV diltiazem, but atrial fibrillation and flutter became the predominant rhythms during his time here. He was on and off a diltiazem drip, and at the time of discharge he was off the drip and had received 30mg oral diltizeam TID for two doses, then a dose of 60mg. He did not have chest pain or ischemic changes on his EKG, but he did have an elevated troponin of 197 on presentation that maxed at 209 7/1 am before falling to 73 on 7/2 am. His AST and ALT were mildly elevated on admission at 69 and 83, which was new. These worsened to 80/140 the following day after cardioversion before falling to 21/73 on the morning of discharge. He had some anxiety and difficulty sleeping. Melatonin was added per request, as he take this at home at times. He was also using 300mg gabapentin. 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 Home Meds and New Rx's Prescriptions: No Action ascorbic acid (vitamin C) 1,000 mg tablet 4 g PO DAILY omega-3 fatty acids [Fish Oil Concentrate] 1,000 mg capsule 2,000 mg PO DAILY cholecalciferol (vitamin D3) 25 mcg (1,000 unit) capsule 75 mcg PO DAILY PRN magnesium 250 mg tablet 250 mg PO DAILY folic acid 400 mcg tablet 0.8 mg PO DAILY vitamin B complex [Super B-50 Complex] Capsule 1 cap PO DAILY lysine [L-Lysine] 500 mg tablet 1,000 mg PO DAILY PRN turmeric root extract 500 mg capsule 500 mg PO DAILY flecainide [Tambocor] 50 MG tablet 50 mg PO BID Patient Comments: aspirin 81 MG tablet,chewable 81 mg PO DAILY PRN gabapentin 100 mg capsule 200 mg PO HS pantoprazole 40 mg tablet,delayed release (DR/EC) 40 mg PO DAILY Patient Comments: TAKE 1 TABLET BY MOUTH EVERY DAY -START TAKING FOR 3 DAYS PRIOR TO PROCEDURE AND FOR 30 DAYS AFTER ABLATION metoprolol succinate 25 mg tablet extended release 24 hr 25 mg PO PRN diazepam 5 mg tablet 5 mg PO PRN Patient Comments: TAKE 1 TABLET BY MOUTH TWICE DAILY NEEDED FOR ANXIETY Eliquis 5 mg Tablet 5 mg PO BID Qty: 60 0RF Discharge Instructions Activity:: Activity as Tolerated Equipment/Supplies:: No Equipment Needed Diet:: Low Sodium Discharge Orders Discharge Orders: Discharge Order (Routine); Ordered 12/07/24 Ordered By: Jhonny James DS: Summary Time Spent with Patient providing and/or coordinating discharge services: Greater than 30 minutes Status at Discharge Functional status at discharge: independent ambulation Overall status at discharge: patient is not back to baseline Mental Status: mental status grossly normal Speech and Movement: speech and movement normal Mood: anxious mood Affect: normal affect Quality:SDOH Health Related Social Needs: Health related social needs details 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 Extremities without cyanosis or edema Psych Mental Status: mental status grossly normal Speech and Movement: speech and movement normal Mood: anxious mood Affect: normal affect DS: Data Vitals/I&O Vitals and I&O: Vital Signs Temperature 37.4 C 12/07/24 11:55 Temperature Source Temporal Artery Scan 12/07/24 11:55 Pulse 109 H 12/07/24 12:00 Pulse 109 H 12/07/24 14:00 Respiratory Rate 10 L 12/07/24 14:00 Respiratory Effort Normal, Non-Labored 12/05/24 00:56 Respiratory Depth Normal 12/05/24 00:56 Respiratory Pattern Normal 12/05/24 00:56 Blood Pressure 131/87 12/07/24 12:57 Blood Pressure Mean 100 12/07/24 12:57 Blood Pressure Position Supine 12/05/24 00:56 Pulse Oximetry 99 12/07/24 12:00 Respiratory End-tidal CO2 38 12/04/24 22:00 Oxygen Delivery Method Room Air 12/07/24 09:06 Oxygen Flow Rate 0 12/07/24 09:06 Pain Level 0 12/07/24 11:55 Intake & Output 12/06/24 12/07/24 12/07/24 23:59 11:59 23:59 Intake Total 322.167 / 1005.667 154.417 / 376.417 222 / 376.417 Output Total 850 / 4000 825 / 825 Balance -527.833 / -2994.333 -670.583 / -448.583 222 / -448.583 Intake: IV 82.167 / 115.667 154.417 / 154.417 Oral 240 / 890 222 / 222 Output: Urine 850 / 4000 825 / 825 Other: Urine Color Yellow Yellow Urine Appearance Clear Clear Urine Odor Normal Normal Comment Additional urine mixed with stool in commode Stool Size Small Large Stool Characteristics Soft Formed Data Completed and Pending Labs on day of discharge: Labs from last 24 hours 12/07/24 06:23 Total Bilirubin 0.9 Conjugated Bilirubin 0.2 AST 21 ALT 73 H Alkaline Phosphatase 84 Total Protein 6.8 Albumin 3.7 PFSH All Active Problems (Updated 12/06/24 @ 18:28 by Jhonny James) Elevated liver enzymes (Acute) Elevated troponin level not due myocardial infarction (Acute) Atrial fibrillation with rapid ventricular response (Acute) Elevated serum creatinine (Acute) Shingles (Acute) BPH (benign prostatic hyperplasia) (Chronic) Erectile dysfunction (Acute) Anxiety disorder (Chronic) Tinnitus, bilateral (Acute) Osteoarthritis cervical spine (Acute) RLS (restless legs syndrome) (Chronic) 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) Medical History Chest pain Social History Smoking/Tobacco Use Status: Never Smoking risk assessment performed?: Yes Alcohol Intake: current Alcohol Intake frequency: holidays/special occasions only Drug use: Never Substance use type: does not use Housing: house Do you feel safe at home: Yes Do you feel safe in your relationship?: Yes Time Spent with Patient Time Spent with Patient: 45-69 minutes Time was spent: preparing to see the patient(eg.review tests), obtaining and/or reviewing separately otained hiistory, ordering medications,tests, procedures, referring, communicating with other health healthcare insurance sales agent, indepentently interpreting results, counseling the patient and care coordination
--- NOTE | 2024-12-07 15:53 | CMDISCH_ITS ---
Date of service: 12/07/24 Time of Service: 15:53 LACE Index Scoring Tool Questions: Length of Stay (in days): 3 Was the patient admitted via the E.D.?: Yes E.D. Visits: 3 Answers: Total Score: 9 Risk of Readmission: Low Risk Care Management Discharge Plan Reason for Hospitalization: Afib with RVR Discharge Plan: Jeremie will be transferred to [facility] today. He has been accepted and a bed has become available. He will transport via EMS coordinated by nursing administrative staff supervisor. 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
== END 2024-12-07 15:15 | disposition short-term general hospital (02) | DRG 310 ==
LOC: ER 23:40 → ICU 23:50
PROVIDERS: Admitting Provider Family Medicine; Emergency Provider Emergency Medicine; PCP Nurse Practitioner Family; Responsible Provider Family Medicine; Visit Provider Family Medicine
DX: R74.8 Abnormal levels of other serum enzymes; I48.0 Paroxysmal atrial fibrillation; F41.1 Generalized anxiety disorder; R07.89 Other chest pain; N40.0 Benign prostatic hyperplasia without lower urinary tract symptoms; M47.812 Spondylosis without myelopathy or radiculopathy, cervical region; G25.81 Restless legs syndrome; M17.0 Bilateral primary osteoarthritis of knee; Z79.01 Long term (current) use of anticoagulants; D69.6 Thrombocytopenia, unspecified; R94.5 Abnormal results of liver function studies; I48.92 Unspecified atrial flutter
CPT/HCPCS: 00123; 36415; 80053; 80076; 85027; 87637; 92960; 93005; 96374; 99291; 83735; 83880; 84443; 84484; 85025; 85610; 93010; 99223; 99233; 99239; J0153; J2704

== ENCOUNTER 2024-12-22 15:08 | Outpatient (CLI) | payer MEDICARE, SELFPAY ==
[2024-12-22 15:29] LABS: ESR 1 mm/hr (0-20)
[2024-12-22 15:46] LABS: Hemoglobin A1C 5.2 % (<5.7)
[2024-12-22 16:09] LABS: Calculated LDL 115 mg/dL (<100); Cholesterol 208 mg/dL (<200); HDL Cholesterol 48 mg/dL (>or=40); Triglyceride 228 mg/dL (<150)
[2024-12-22 22:30] LABS: CRP, High Sensitivity 0.37 mg/L (See Note)
== END 2024-12-22 15:09 | disposition home or self-care (01) ==
LOC: LBO 15:09
PROVIDERS: PCP Nurse Practitioner Family; Visit Provider Family Medicine
DX: Z13.6 Encounter for screening for cardiovascular disorders (principal); R73.03 Prediabetes
CPT/HCPCS: 36415; 80061; 85652; 86141; 83036; 86140

== ENCOUNTER 2024-12-28 04:06 | Emergency (ER) | payer MEDICARE, SELFPAY ==
--- NOTE | 2024-12-28 04:00 | RT.EKG_ITS ---
APPROVED REPORT Exam: Resting ECG Reason for Exam: afib Patient Location: E HR:108 bpm ECG Measurements Heart Rate 108 AXIS ID [id number] P [id number] QRSd 87 QRS -10 QT 399 T 34 QTc 536 Conclusion Atrial flutter with predominant 2:1 AV block...A-rate 217, multiple Ps Prolonged QT interval...QTc >500mS I have reviewed and interpreted ECG and agree with software generated interpretation.
[2024-12-28 04:08] VITALS: BP 153/81; PULSE 126; RESP 18; TEMP 36.8; O2SAT 96
--- NOTE | 2024-12-28 04:24 | ED.GENADUL_ITS ---
Discharge Plan Disposition Patient Disposition: Home Condition: Good Discharge Details Clinical Impression: Atrial flutter Primary Care Provider: Monica Sol ED Provider: Sam Bruno Home Meds and New Rx's Prescriptions: No Action ascorbic acid (vitamin C) 1,000 mg tablet 4 g PO DAILY omega-3 fatty acids [Fish Oil Concentrate] 1,000 mg capsule 2,000 mg PO DAILY cholecalciferol (vitamin D3) 25 mcg (1,000 unit) capsule 75 mcg PO DAILY PRN magnesium 250 mg tablet 250 mg PO DAILY folic acid 400 mcg tablet 0.8 mg PO DAILY vitamin B complex [Super B-50 Complex] Capsule 1 cap PO DAILY lysine [L-Lysine] 500 mg tablet 1,000 mg PO DAILY PRN turmeric root extract 500 mg capsule 500 mg PO DAILY aspirin 81 MG tablet,chewable 81 mg PO DAILY PRN gabapentin 100 mg capsule 200 mg PO HS PRN pantoprazole 40 mg tablet,delayed release (DR/EC) 40 mg PO DAILY Patient Comments: TAKE 1 TABLET BY MOUTH EVERY DAY -START TAKING FOR 3 DAYS PRIOR TO PROCEDURE AND FOR 30 DAYS AFTER ABLATION metoprolol succinate 25 mg tablet extended release 24 hr 25 mg PO PRN diazepam 5 mg tablet 5 mg PO PRN Patient Comments: TAKE 1 TABLET BY MOUTH TWICE DAILY NEEDED FOR ANXIETY Eliquis 5 mg Tablet 5 mg PO BID Qty: 60 0RF burburine dofetilide 250 mcg capsule BID Discharge Instructions Instructions: Atrial flutter Additional Instructions: At this time your heart rate is stable, and your workup is benign. It is likely that the episode of an elevated heart rate with atrial flutter was secondary to a combination of the decreased dofetilide dose, as well as the recent ablation. After discussions with cardiology, it is our recommendation that you return to 250 mcg of dofetilide twice daily. Please follow-up closely with your revenue officer at [facility]. If you notice any worsening of your symptoms, or any new symptoms such as vomiting, diarrhea, fever, chills, shortness of breath, chest pain, numbness, weakness, or fainting , please return immediately to the emergency department for reevaluation. Please follow up with your primary care provider as soon as possible for reassessment and reevaluation. As always, it was a pleasure participating in your medical care today. Referrals: Monica Sol [Primary Care Provider, Medicine] HPI General Date/Time Provider Initiated Documentation: 12/28/24 04:07 . HPI Narrative: This is a pleasant 74-year-old male with a past medical history of atrial fibrillation with cardial ablation on 11/29/2024, with subsequent repeat A-fib just a few days later, who was subsequently transferred to [facility] and given a Tikosyn load, and had been taking 250 mg twice daily since then, who is on Eliquis as prescribed, and also has a past medical history of restless leg syndrome, anxiety, and BPH. He presents today for evaluation of A-fib like symptoms. Patient states that over the last 3 to 4 days he has been feeling somewhat more weak, slightly dizzy, and fatigue. He contacted his gaming surveillance observer, and they recommended cutting down from 250 twice daily to 250 daily. The first time he had the half dose was yesterday. This morning at 1 AM he awoke with feelings of palpitation in his chest, and had a heart rate in the 120s to 130s. He took 25 mg of metoprolol at 1 AM, and symptoms persisted. He came to the ER for further assessment. He denies any chest pain, shortness of breath, numbness or tingling or weakness. He denies any dietary changes or excessive caffeine use. He denies any syncope or current lightheadedness. No other complaints at this time. Related Data Home Medications ?Medication ?Instructions ?Recorded ?Confirmed aspirin 81 mg chewable tablet 81 mg PO DAILY PRN 06/1712/28/24 Held on 12/28/24. Instructions: Pt Stopped/Never Started gabapentin 100 mg capsule 200 mg PO HS PRN 09/23/20 ascorbic acid (vitamin C) 1,000 mg 4 g PO DAILY 12/28/24 tablet cholecalciferol (vitamin D3) 25 75 mcg PO DAILY PRN 12/28/24 mcg (1,000 unit) capsule folic acid 400 mcg tablet 0.8 mg PO DAILY 09/24/20 lysine 500 mg tablet (L-Lysine) 1,000 mg PO DAILY PRN 09/24/20 12/28/24 magnesium 250 mg tablet 250 mg PO DAILY 09/24/20 omega-3 fatty acids 1,000 mg 2,000 mg PO DAILY 2 1 12/28/24 capsule (Fish Oil Concentrate) turmeric root extract 500 mg 500 mg PO DAILY 09/24/20 12/28/24 capsule vitamin B complex (Super B-50 1 cap PO DAILY 09/24/20 12/28/24 Complex capsule) apixaban 5 mg tablet (Eliquis) 5 mg PO BID #60 tabs 12/28/24 diazepam 5 mg tablet 5 mg PO PRN 12/04/24 5 metoprolol succinate 25 mg 25 mg PO PRN 12/04/2412/28 tablet,extended release 24 hr pantoprazole 40 mg tablet,delayed 40 mg PO DAILY 12/0412/28/24 release burburine 12/28/24 dofetilide 250 mcg capsule mcg BID 12/28/24 Previous Rx's ?Medication ?Instructions ?Recorded apixaban 5 mg tablet (Eliquis) 5 mg PO BID #60 tabs Allergies Allergy/AdvReac Type Severity Reaction Status Date / Time No Known Allergies Allergy Verified 12/28/24 04:16 General Stated Complaint: Arrhythmia ZION: 3 Exam Narrative Exam Narrative: 1.Const: Well-nourished, Well-developed, appearing stated age 2.Eyes: PERRL, no conjunctival injection, and symmetrical lids. 3.ENT: Atraumatic external nose and ears. Moist MM. Neck: Symmetric, trachea midline, No thyromegaly. 4.CVS: +S1/S2, Peripheral pulses 2+ and equal in all extremities. Brisk capillary refill in all extremities. 5.RESP: Unlabored respiratory effort. Clear to auscultation bilaterally. No wheezes rales or rhonchi 6.GI: Soft, Nontender/Nondistended, No hepatosplenomegaly. No guarding or rebound. 7.MSK: Normocephalic/Atraumatic, Extremities w/o deformity or ttp No cyanosis or clubbing, Normal movement of all extremities 8.Skin: Warm, Dry. No rashes or lesions. 9.Neuro: neuro urologist II-XII grossly intact. Sensation grossly intact, no focal neurologic deficits. 10.Psych: (AAO) x3. Appropriate mood and affect Course Vital Signs Vital signs: Vital Signs Temperature 36.8 C 12/28/24 04:08 Pulse 126 H 12/28/24 04:08 Respiratory Rate 18 12/28/24 04:08 Blood Pressure 153/81 H 12/28/24 04:08 Pulse Oximetry 96 12/28/24 04:08 Temperature 36.8 C 12/28/24 04:08 Pulse 126 H 12/28/24 04:08 Respiratory Rate 18 12/28/24 04:08 Blood Pressure 153/81 H 12/28/24 04:08 Pulse Oximetry 96 12/28/24 04:08 Pain Level 0 12/28/24 04:08 Medical Decision Making This is a pleasant 74-year-old male with a past medical history of atrial fibrillation with cardial ablation on 11/29/2024, with subsequent repeat A-fib just a few days later, who was subsequently transferred to [facility] and given a Tikosyn load, and had been taking 250 mcg twice daily since then, who is on Eliquis as prescribed, and also has a past medical history of restless leg syndrome, anxiety, and BPH. He presents today for evaluation of A-fib like symptoms. Patient states that over the last 3 to 4 days he has been feeling somewhat more weak, slightly dizzy, and fatigue. He contacted his gaming surveillance observer, and they recommended cutting down from 250 twice daily to 250 daily. The first time he had the half dose was yesterday. This morning at 1 AM he awoke with feelings of palpitation in his chest, and had a heart rate in the 120s to 130s. He took 25 mg of metoprolol at 1 AM, and symptoms persisted. He came to the ER for further assessment. He denies any chest pain, shortness of breath, numbness or tingling or weakness. He denies any dietary changes or excessive caffeine use. He denies any syncope or current lightheadedness. No other complaints at this time. Exam demonstrates well-appearing male, no signs of hypotension or shock. EKG demonstrates atrial flutter, with a 2:1 ratio. Differential is highest for potential flutter/cardiac dysrhythmia secondary to the change in his flecainide dosing. Coincidental components are certainly on the differential like secondary to electrolyte abnormalities, or thyroid dysfunction but this is less likely. We will contact [facility] cardiology for further discussion on increasing Tikosyn or facilitating a dose change. As his heart rate is now in the low 100s I do not see an indication for emergent cardioversion. We will hold on diltiazem or beta-bear drip until after discussion with [facility] cardiology. 6:16 AM Patient's heart rate remained stable between 100 and 110. No hypotension, no lightheadedness or dizziness or syncope. Laboratory workup has returned relatively unremarkable. No white count bandemia or left shift. Electrolytes are normal. No fever or chills to suggest viral or bacterial illness. Calcium magnesium and potassium are normal. Serial troponins are normal, proBNP is normal with no elevation to suggest heart strain. Thyroid function is normal. I discussed the case with [facility] cardiology Dr. Mg, recommendations at this time are to return to the 250 mcg in dosing twice daily. Patient feels comfortable with plan. Patient will follow-up closely on an outpatient basis with his electrophysiology team. Discussed red flags for which to return. I have extensively reviewed the treatment plan and discharge instructions with the patient and their family. I have addressed all patient concerns at this time. The patient and family was made aware of what symptoms to monitor for that would warrant a return to the emergency department. Discussed the plan with the patient and family, they demonstrate verbal understanding and agreement with our assessment and plan at this time. The documentation in this chart was dictated using [employer] book dictation software. Please excuse any dictation errors. Quality:SDOH Health Related Social Needs: Health related social needs details pts is [employer] so pt and family arre very well educated PFS All Active Problems (Updated 12/28/24 @ 05:53 by Sam Bruno DO) Atrial flutter (Acute) Elevated liver enzymes (Acute) Atrial fibrillation with rapid ventricular response (Acute) Elevated serum creatinine (Acute) Shingles (Acute) BPH (benign prostatic hyperplasia) (Chronic) Erectile dysfunction (Acute) Anxiety disorder (Chronic) Tinnitus, bilateral (Acute) Osteoarthritis cervical spine (Acute) RLS (restless legs syndrome) (Chronic) 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) Medical History Chest pain Social History Smoking/Tobacco Use Status: Never Smoking risk assessment performed?: Yes Alcohol Intake: current Alcohol Intake frequency: holidays/special occasions only Drug use: Never Substance use type: does not use Housing: house Do you feel safe at home: Yes Do you feel safe in your relationship?: Yes
[2024-12-28] MEDS: Normal Saline 500 ML IV (04:27)
[2024-12-28 04:30] LABS: Abs Immature Grans 0.02 10^3/uL (0.0-0.06); HCT 48.1 % (40.0-50.0); HGB 15.8 g/dL (13.5-17.5); Immature Grans % 0.3 %; MCH 31.2 pg (27.0-33.0); MCHC 32.8 % (32.0-36.0); MCV 95 fL (80-95); MPV 11.2 fL (8.0-11.0); Platelet Count 164 10^3/uL (130-400); RBC 5.06 10^6/uL (4.36-5.78); RDW 12.8 % (11.8-14.1); RDW-SD 45.1 fL; WBC 7.06 10^3/uL (4.4-10.8)
[2024-12-28 04:50] LABS: INR 1.0 (0.9-1.1); PTT Activated 25.5 sec (20.6-30.2); Prothrombin Time 10.3 sec (9.1-11.1)
[2024-12-28 04:56] LABS: ALT 22 U/L (16-63); AST 12 U/L (15-37); Albumin 4.2 g/dL (3.4-5.0); Alkaline Phosphatase 94 U/L (46-116); Anion Gap 8.1 mmol/L (3-11); BUN 20 mg/dL (7-18); Bilirubin, Total 0.4 mg/dL (0.2-1.0); CO2 29.9 mmol/L (21.0-32.0); Calcium 9.1 mg/dL (8.5-10.1); Chloride 105 mmol/L (98-107); Estimated GFR 63.07 (mL/min/1.73m2); Glucose 113 mg/dL (74-106); Magnesium 2.2 mg/dL (1.8-2.4); Potassium 4.1 mmol/L (3.5-5.1); Sodium 143 mmol/L (136-145); TSH (W/Ref FT4) 3.29 uIU/mL (0.36-3.74); Total Protein 7.6 g/dL (6.4-8.2); Troponin I 9 ng/L (<or=76)
[2024-12-28 05:16] LABS: NT-proBNP 101 pg/mL (<300)
[2024-12-28 05:51] LABS: Troponin I 8 ng/L (<or=76)
[2024-12-28 06:18] VITALS: BP 121/71; PULSE 111; RESP 18; O2SAT 96
== END 2024-12-28 06:21 | disposition home or self-care (01) ==
PROVIDERS: Emergency Provider Student in an Organized Health Care Education/Training Program; PCP Family Medicine
DX: I48.92 Unspecified atrial flutter (principal); R94.31 Abnormal electrocardiogram [ECG] [EKG]; Z79.01 Long term (current) use of anticoagulants
CPT/HCPCS: 36415; 80053; 93005; 99284; 83735; 83880; 84443; 84484; 85025; 85610; 85730; 93010

== ENCOUNTER 2024-12-31 19:26 | Emergency (ER) | payer MEDICARE, SELFPAY ==
[2024-12-31] VITALS (24 sets, daily range): BP systolic 97–143; BP diastolic 66–106; PULSE 48–141; RESP 8–20; TEMP 36.4; O2SAT 95–99
--- NOTE | 2024-12-31 19:15 | RT.EKG_ITS ---
APPROVED REPORT Exam: Resting ECG Reason for Exam: Tachycardia Patient Location: E HR:132 bpm ECG Measurements Heart Rate 132 AXIS WV 194 P 237 QRSd 85 QRS 1 QT 337 T 55 QTc 499 Conclusion Sinus or ectopic atrial tachycardia...P axis (-45,135), rate> [address] depression, diffuse leads...ST <-0.07mV, ant/lat/inf Irregular tachycardia without P wave likely a-fib/a flutter. rate related ST depressions. When compared to prior 12/28/24 HR is increased. WD
[2024-12-31 20:01] LABS: Abs Immature Grans 0.02 10^3/uL (0.0-0.06); HCT 45.5 % (40.0-50.0); HGB 15.4 g/dL (13.5-17.5); Immature Grans % 0.3 %; MCH 31.8 pg (27.0-33.0); MCHC 33.8 % (32.0-36.0); MCV 94 fL (80-95); MPV 11.6 fL (8.0-11.0); Platelet Count 164 10^3/uL (130-400); RBC 4.85 10^6/uL (4.36-5.78); RDW 12.6 % (11.8-14.1); RDW-SD 43.8 fL; WBC 7.19 10^3/uL (4.4-10.8)
[2024-12-31] MEDS: Normal Saline 1,000 ML 1000 ML IV (20:05)
--- NOTE | 2024-12-31 20:08 | W.ED.GENAD ---
Discharge Plan Disposition Patient Disposition: Home Condition: Stable Discharge Details Clinical Impression: Atrial flutter Primary Care Provider: Brandy Muse ED Provider: Marla Watkins Home Meds and New Rx's Prescriptions: No Action ascorbic acid (vitamin C) 1,000 mg tablet 4 g PO DAILY omega-3 fatty acids [Fish Oil Concentrate] 1,000 mg capsule 2,000 mg PO DAILY cholecalciferol (vitamin D3) 25 mcg (1,000 unit) capsule 75 mcg PO DAILY PRN magnesium 250 mg tablet 250 mg PO DAILY folic acid 400 mcg tablet 0.8 mg PO DAILY vitamin B complex [Super B-50 Complex] Capsule 1 cap PO DAILY lysine [L-Lysine] 500 mg tablet 1,000 mg PO DAILY PRN turmeric root extract 500 mg capsule 500 mg PO DAILY gabapentin 100 mg capsule 200 mg PO HS PRN pantoprazole 40 mg tablet,delayed release (DR/EC) 40 mg PO DAILY Patient Comments: TAKE 1 TABLET BY MOUTH EVERY DAY -START TAKING FOR 3 DAYS PRIOR TO PROCEDURE AND FOR 30 DAYS AFTER ABLATION metoprolol succinate 25 mg tablet extended release 24 hr 25 mg PO PRN diazepam 5 mg tablet 5 mg PO PRN Patient Comments: TAKE 1 TABLET BY MOUTH TWICE DAILY NEEDED FOR ANXIETY Eliquis 5 mg Tablet 5 mg PO BID Qty: 60 0RF burburine 500 mg PO DAILY dofetilide 250 mcg capsule 250 mcg PO BID Discharge Instructions Additional Instructions: As recommended by [facility] cardiology jessica, call your general production manager in the morning to discuss further action plan. Discharge Data Discharge Physician: Marla Watkins [facility] General Date/Time Provider Initiated Documentation: 12/31/24 19:35. HPI Narrative: 74-year-old male with history of atrial fibrillation on Eliquis, cardiac ablation on 11/29/2024 presents for evaluation of rapid heartbeat. Patient states that he has been having significant difficulties with controlling his heart rate presents for his ablation. He has had multiple episodes of rapid heartbeat. Over the last 24 hours his heart rate has been in the 130s. He has been taking his normal medications as prescribed by his general production manager. He also took additional metoprolol at 9:30 AM and 2:30 PM today which is part of the plan with his general production manager if his heart rate remains elevated. He states that he then converted to sinus rhythm for about 10 to 15 minutes before going back into a rapid rhythm. He has been intermittently feeling lightheaded and weak. His has been checking his blood pressure at home and states that he had some mildly low blood pressure earlier today. He has been eating and drinking normally. He denies any fevers or chills. No chest pain or shortness of breath. No leg pain or swelling. He does feel that he is adequately hydrated although they admit that it was very hot yesterday. Related Data Home Medications ?Medication ?Instructions ?Recorded ?Confirmed gabapentin 100 mg capsule 200 mg PO HS PRN 09/23/20 12/31/24 ascorbic acid (vitamin C) 1,000 mg 4 g PO DAILY 09/24/20 12/31/24 tablet cholecalciferol (vitamin D3) 25 75 mcg PO DAILY PRN 09/24/20 12/31/24 mcg (1,000 unit) capsule folic acid 400 mcg tablet 0.8 mg PO DAILY 09/24/20 12/31/24 lysine 500 mg tablet (L-Lysine) 1,000 mg PO DAILY PRN 09/24/20 12/31/24 magnesium 250 mg tablet 250 mg PO DAILY 09/24/20 12/31/24 omega-3 fatty acids 1,000 mg 2,000 mg PO DAILY 09/24/20 12/31/24 capsule (Fish Oil Concentrate) turmeric root extract 500 mg 500 mg PO DAILY 09/24/20 12/31/24 capsule vitamin B complex (Super B-50 1 cap PO DAILY 09/24/20 12/31/24 Complex capsule) apixaban 5 mg tablet (Eliquis) 5 mg PO BID #60 tabs 06/10/24 12/31/24 diazepam 5 mg tablet 5 mg PO PRN 12/04/24 12/31/24 metoprolol succinate 25 mg 25 mg PO PRN 12/04/24 12/31/24 tablet,extended release 24 hr pantoprazole 40 mg tablet,delayed 40 mg PO DAILY 12/04/24 12/31/24 release burburine 500 mg PO DAILY 12/28/24 12/31/24 dofetilide 250 mcg capsule 250 mcg PO BID 12/28/24 12/31/24 Previous Rx's ?Medication ?Instructions ?Recorded apixaban 5 mg tablet (Eliquis) 5 mg PO BID #60 tabs 06/10/24 Allergies Allergy/AdvReac Type Severity Reaction Status Date / Time No Known Allergies Allergy Verified 12/31/24 19:38 General Stated Complaint: Arrhythmia ZION: 3 Review of Systems Narrative: Remainder of review of systems otherwise negative except for as noted in the HPI x 10. Exam Narrative Exam Narrative: General: non-toxic, no respiratory distress, comfortable HEENT: normocephalic, atraumatic, lids and lashes normal, PERRL, EOMI, anicteric sclera, no conjunctival injection, moist oral mucosa Card: Tachycardic, regular, S1S2, no murmurs, rubs, or gallops Lungs: good air entry, clear to auscultation bilaterally. no wheezes, rales, rhonchi, or retractions Abd: soft, non-tender, non-distended, normal bowel sounds, no rebound or guarding, no peritoneal signs Musculoskeletal: full range of motion of arms and legs, no tenderness to palpation. no clubbing, cyanosis, or edema Neurologic: appropriate for age, strength normal Psych: alert and oriented Skin: no petechiae, no lesions, warm and dry Course Reevaluation(s) Initial Evaluation: 2100-patient's heart rate has been in the 80s and 90s. He does appear to be atrial fibrillation. At time of my reassessment he is feeling much improved at this time. I have discussed the results of his laboratory studies. We are still waiting to hear back from cardiology. I did offer discharge at this time however they would like to be monitored for the next hour to determine if symptoms return. Vital Signs Vital signs: Vital Signs Temperature 36.4 C 12/31/24 19:30 Pulse 123 H 12/31/24 19:30 Respiratory Rate 12/31/24 19:30 Blood Pressure 143/106 H 12/31/24 19:30 Pulse Oximetry 99 12/31/24 19:30 Temperature 36.4 C 12/31/24 19:30 Pulse 123 H 12/31/24 19:30 Respiratory Rate 20 12/31/24 19:30 Blood Pressure 143/106 H 12/31/24 19:30 Blood Pressure Position Supine 12/31/24 19:30 Pulse Oximetry 99 12/31/24 19:30 Oxygen Delivery Method Room Air 12/31/24 19:30 Oxygen Flow Rate 0 12/31/24 19:30 Lab/Test Results Lab/Test Results: Laboratory Tests Range/Units 12/31/24 19:40 WBC (4.4-10.8) 10^3/uL 7.19 RBC (4.36-5.78) 10^6/uL 4.85 Hgb (13.5-17.5) g/dL 15.4 Hct (40.0-50.0) % 45.5 MCV (80-95) fL 94 MCH (27.0-33.0) pg 31.8 MCHC (32.0-36.0) % 33.8 RDW (11.8-14.1) % 12.6 Plt Count (130-400) 10^3/uL 164 MPV (8.0-11.0) fL 11.6 H Immature Gran % % 0.3 Neutrophils % % 60.0 Lymphocytes % % 29.6 Monocytes % % 7.1 Eosinophils % % 1.7 Basophils % % 1.3 Nucleated RBC % (0.0-0.3) % 0.0 Absolute Neutrophils (1.2-6.7) 10^3/uL 4.32 Absolute Lymphocytes (1.2-3.4) 10^3/uL 2.13 Absolute Monocytes (0.1-0.8) 10^3/uL 0.51 Absolute Eosinophils (0.0-0.7) 10^3/uL 0.12 Absolute Basophils (0.0-0.2) 10^3/uL 0.09 Medical Decision Making 74-year-old male with history of atrial fibrillation on Eliquis status post cardiac ablation 11/29/2024 presents with rapid heartbeat. He has been intermittently symptomatic with this elevated heart rate over the last 24 hours. EKG does show an irregular tachycardia 135 bpm without clear P waves. Laboratory studies unremarkable. Within 30 minutes of being in the emergency department patient's heart rate had decreased down to 80s and 90s. He feels much improved. Case discussed with electrophysiology at [facility]. They do not feel that patient needs any further interventions or cardioversion at this time. They recommend that patient calls office first thing tomorrow morning so that they can discuss further action plans. This information was relayed to patient and . They are agreeable with this plan. Quality:SDOH Health Related Social Needs: Health related social needs details pts is [employer] so pt and family arre very well educated PFSH All Active Problems (Updated 12/31/24 @ 21:29 by Marla Watkins MD) Atrial flutter (Acute) Elevated liver enzymes (Acute) Atrial fibrillation with rapid ventricular response (Acute) Elevated serum creatinine (Acute) Shingles (Acute) BPH (benign prostatic hyperplasia) (Chronic) Erectile dysfunction (Acute) Anxiety disorder (Chronic) Tinnitus, bilateral (Acute) Osteoarthritis cervical spine (Acute) RLS (restless legs syndrome) (Chronic) 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) Medical History Chest pain Social History Smoking/Tobacco Use Status: Never Smoking risk assessment performed?: Yes Alcohol Intake: current Alcohol Intake frequency: holidays/special occasions only Drug use: Never Substance use type: does not use Housing: house Do you feel safe at home: Yes Do you feel safe in your relationship?: Yes
[2024-12-31 20:34] LABS: ALT 26 U/L (16-63); AST 16 U/L (15-37); Albumin 4.0 g/dL (3.4-5.0); Alkaline Phosphatase 94 U/L (46-116); Anion Gap 10.3 mmol/L (3-11); BUN 21 mg/dL (7-18); Bilirubin, Total 0.3 mg/dL (0.2-1.0); CO2 25.7 mmol/L (21.0-32.0); Calcium 9.0 mg/dL (8.5-10.1); Chloride 106 mmol/L (98-107); Estimated GFR 70.01 (mL/min/1.73m2); Glucose 116 mg/dL (74-106); Magnesium 2.0 mg/dL (1.8-2.4); Potassium 4.2 mmol/L (3.5-5.1); Sodium 142 mmol/L (136-145); TSH (W/Ref FT4) 2.26 uIU/mL (0.36-3.74); Total Protein 7.3 g/dL (6.4-8.2); Troponin I 7 ng/L (<or=76)
[2024-12-31 21:08] LABS: Troponin I 9 ng/L (<or=76)
== END 2024-12-31 21:39 | disposition home or self-care (01) ==
PROVIDERS: Emergency Provider Emergency Medicine Emergency Medical Services; PCP Family Medicine
DX: I48.92 Unspecified atrial flutter (principal); Z79.01 Long term (current) use of anticoagulants
CPT/HCPCS: 36415; 80053; 93005; 96360; 99284; 83735; 84443; 84484; 85025; 93010

== ENCOUNTER 2025-01-19 00:44 | Outpatient (CLI) | payer MEDICARE, SELFPAY | END 2025-01-19 00:45 | disposition home or self-care (01) | LOC: LBO 00:44 | PROVIDERS: PCP Family Medicine; Visit Provider Physician Assistant Medical | DX: R14.2 Eructation (principal) | CPT/HCPCS: 83013 ==

== ENCOUNTER 2025-01-19 14:01 | Outpatient (CLI) | payer MEDICARE, SELFPAY ==
--- NOTE | 2025-01-19 13:43 | DI.RAD_ITS ---
Exam(s) XR LUMBAR SPINE COMPLETE EXAM: XR LUMBAR SPINE COMPLETE CLINICAL HISTORY: LOW BACK AND RT HIP PAIN, M54.50,M25.551. TECHNIQUE: 2D digital imaging was performed. Five views. COMPARISON: No exams were available for comparison FINDINGS: BONES: No fracture or destructive lesion. Vertebral body heights are maintained. Prominent right-sided osteophytes at L3-4 and L4-5. Facet degenerative changes noted throughout, greatest at L4-5. DISKS: Intervertebral disc spaces are maintained. ALIGNMENT: Lumbar spinal alignment is within normal limits. SOFT TISSUE: Normal. IMPRESSION: Degenerative changes, greatest of the facet joints at L4-5. DATA REPOSITORY: RADIATION DOSE DELIVERED:
--- NOTE | 2025-01-19 13:45 | DI.RAD_ITS ---
Exam(s) XR HIP RT COMPLETE AP PELVIS EXAM: XR HIP RT COMPLETE AP PELVIS CLINICAL HISTORY: RT HIP PAIN, M25.551. TECHNIQUE: 2D digital imaging was performed. Three views COMPARISON: No exams were available for comparison FINDINGS: BONES: No acute fracture is present. No bony destructive lesion is seen. JOINTS: No dislocation present. Severe narrowing of the superior hip joint spaces bilaterally, right greater than left. Bilateral acetabular spurring, right greater than left. SOFT TISSUE: Normal. IMPRESSION: Severe degenerative changes of the hips, right greater than left. DATA REPOSITORY: RADIATION DOSE DELIVERED:
== END 2025-01-19 14:21 ==
LOC: DI 14:01
PROVIDERS: PCP Family Medicine; Visit Provider Family Medicine
DX: M16.11 Unilateral primary osteoarthritis, right hip (principal); M51.360 Other intervertebral disc degeneration, lumbar region with discogenic back pain only
CPT/HCPCS: 72110; 73502; 83013

== ENCOUNTER 2025-03-03 17:46 | Observation (INO) | payer MEDICARE, SELFPAY ==
[2025-03-03] VITALS (54 sets, daily range): BP systolic 103–194; BP diastolic 81–104; PULSE 62–122; RESP 7–21; TEMP 36.6; O2SAT 95–99
--- NOTE | 2025-03-03 17:45 | RT.EKG_ITS ---
APPROVED REPORT Exam: Resting ECG Reason for Exam: afib Patient Location: E HR:119 bpm ECG Measurements Heart Rate 119 AXIS CA 211 P 44 QRSd 85 QRS 6 QT 280 T 33 QTc 394 Conclusion Sinus tachycardia, rate 119 No interval abnormalities No STEMI Borderline ST elevations <1mm V2 Compared to priors, A fib has resolved
--- NOTE | 2025-03-03 18:04 | W.ED.GENAD ---
Discharge Plan Disposition Patient Disposition: Admit to [facility] Condition: Stable Discharge Details Clinical Impression: Atrial fibrillation with rapid ventricular response Admit Date/Time: 03/03/25 20:35 Admit Provider: Jas Mcclain Attending Provider: Jas Mcclain Primary Care Provider: Brandy Muse ED Provider: Pooja Rose Home Meds and New Rx's Prescriptions: No Action ascorbic acid (vitamin C) 1,000 mg tablet 4 g PO DAILY omega-3 fatty acids [Fish Oil Concentrate] 1,000 mg capsule 2,000 mg PO DAILY cholecalciferol (vitamin D3) 25 mcg (1,000 unit) capsule 75 mcg PO DAILY PRN magnesium 250 mg tablet 250 mg PO DAILY folic acid 400 mcg tablet 0.8 mg PO DAILY vitamin B complex [Super B-50 Complex] Capsule 1 cap PO DAILY lysine [L-Lysine] 500 mg tablet 1,000 mg PO DAILY PRN turmeric root extract 500 mg capsule 500 mg PO DAILY gabapentin 100 mg capsule 200 mg PO HS PRN pantoprazole 40 mg tablet,delayed release (DR/EC) 40 mg PO DAILY Patient Comments: TAKE 1 TABLET BY MOUTH EVERY DAY -START TAKING FOR 3 DAYS PRIOR TO PROCEDURE AND FOR 30 DAYS AFTER ABLATION metoprolol succinate 25 mg tablet extended release 24 hr 25 mg PO PRN diazepam 5 mg tablet 5 mg PO PRN Patient Comments: TAKE 1 TABLET BY MOUTH TWICE DAILY NEEDED FOR ANXIETY Eliquis 5 mg Tablet 5 mg PO BID Qty: 60 0RF burburine 500 mg PO DAILY dofetilide 250 mcg capsule 250 mcg PO BID HPI General Mode of arrival: ambulatory. Date/Time Provider Initiated Documentation: 03/03/25 17:49. Limitations to Documentation: no limitations. Information obtained by: patient, family and old records reviewed. HPI Narrative: This is a 74-year-old male patient with a past medical history significant for atrial fibrillation, status post ablation, currently on dofetilide 250 mcg twice daily, presenting for evaluation of A-fib with RVR. The patient reports that since his admission back in December when he was initiated on dofetilide, he has maintained in a normal sinus rhythm for the last 5 weeks. 3 days ago he contacted his automobile upholsterer and requested to go down on the dofetilide since his rhythm had been so well-controlled. He on that day started taking dofetilide once per day. He has been off of the Eliquis as he was in a sinus rhythm, and states that today after digging out a pond and exerting himself he had a onset of palpitations, some chest pain, and noted his heart rate to be above 200. The patient immediately took one of his 5 mg Eliquis tablets, as well as a 25 mg metoprolol succinate. He waited approximately 1 hour but his symptoms did not resolve and he did not convert into a normal sinus rhythm, prompting his presentation to our hospital. Related Data Home Medications ?Medication ?Instructions ?Recorded ?Confirmed gabapentin 100 mg capsule 200 mg PO HS PRN 09/23/20 12/31/24 ascorbic acid (vitamin C) 1,000 mg 4 g PO DAILY 09/24/20 12/31/24 tablet cholecalciferol (vitamin D3) 25 75 mcg PO DAILY PRN 09/24/20 12/31/24 mcg (1,000 unit) capsule folic acid 400 mcg tablet 0.8 mg PO DAILY 09/24/20 12/31/24 lysine 500 mg tablet (L-Lysine) 1,000 mg PO DAILY PRN 09/24/20 12/31/24 magnesium 250 mg tablet 250 mg PO DAILY 09/24/20 12/31/24 omega-3 fatty acids 1,000 mg 2,000 mg PO DAILY 09/24/20 12/31/24 capsule (Fish Oil Concentrate) turmeric root extract 500 mg 500 mg PO DAILY 09/24/20 12/31/24 capsule vitamin B complex (Super B-50 1 cap PO DAILY 09/24/20 12/31/24 Complex capsule) apixaban 5 mg tablet (Eliquis) 5 mg PO BID #60 tabs 06/10/24 12/31/24 diazepam 5 mg tablet 5 mg PO PRN 12/04/24 12/31/24 metoprolol succinate 25 mg 25 mg PO PRN 12/04/24 12/31/24 tablet,extended release 24 hr pantoprazole 40 mg tablet,delayed 40 mg PO DAILY 12/04/24 12/31/24 release burburine 500 mg PO DAILY 12/28/24 12/31/24 dofetilide 250 mcg capsule 250 mcg PO BID 12/28/24 12/31/24 Previous Rx's ?Medication ?Instructions ?Recorded apixaban 5 mg tablet (Eliquis) 5 mg PO BID #60 tabs 06/10/24 Allergies Allergy/AdvReac Type Severity Reaction Status Date / Time No Known Allergies Allergy Verified 12/31/24 19:38 General Stated Complaint: Palpitatns ZION: 2 Exam Narrative Exam Narrative: Gen: Awake and alert, in no apparent distress HEENT: Non-icteric sclera Neck: Supple Lungs: No apparent respiratory distress, normal respiratory effort. CV: Appears well perfused, heart with tachycardic rate, regular rhythm, strong distal pulses Abdomen: Non-distended, soft, nontender MSK: Moves 4 extremities without apparent limitation in ROM, no peripheral edema, no unilateral calf swelling or tenderness Skin: Visualized skin without rashes, cyanosis. Neuro: Normal Gait, no obvious focal deficits or facial asymmetry. Speaks in full, clear sentences. Psych: Appropriate for situation. Course Vital Signs Vital signs: Vital Signs Pulse 120 H 03/03/25 17:54 Respiratory Rate 20 03/03/25 17:54 Blood Pressure 194/104 H 03/03/25 17:54 Pulse Oximetry 97 03/03/25 17:54 Pulse 120 H 03/03/25 17:54 Respiratory Rate 20 03/03/25 17:54 Blood Pressure 194/104 H 03/03/25 17:54 Blood Pressure Position Sitting 03/03/25 17:54 Pulse Oximetry 97 03/03/25 17:54 Oxygen Delivery Method Room Air 03/03/25 17:54 Oxygen Flow Rate 0 03/03/25 17:54 Medical Decision Making This is a 74-year-old male patient presenting for evaluation of A-fib with RVR. My differential includes but is not limited to primary dysrhythmia, medication changes effect (specifically the dofetilide), consider dehydration, metabolic derangement and electrolyte abnormality, kidney injury. The patient has no documented hyperthyroidism on multiple checks in the ED, does not utilize a significant amount of caffeine or other stimulating food or drinks. While in the critical bay, the patient was noted on telemetry to spontaneously convert to a sinus tachycardia. An EKG was obtained, which shows no evidence of acute ischemia, interval abnormality, or ectopy. Will obtain labs to include CBC, CMP, magnesium, troponin, BNP, and provide the patient with a liter of IV fluids. -I reviewed the patient's laboratory studies, which show no leukocytosis, anemia or thrombocytopenia. Chemistry panel without electrolyte derangement, no significant renal dysfunction though the BUN to creatinine ratio is just slightly above 20-1 which may represent mild dehydration. No liver abnormality, troponin was negative and without significant delta increase in 1 hour recheck, BNP is low. Approximately 15 minutes after arrival, the patient went back into an atrial fibrillation with RVR, though his rates are more controlled between the 120s and 140s. I consulted with Dr. Kern, of [facility] cardiology, where this patient follows primarily. He does not recommend increasing the dofetilide back to twice daily dosing, and recommends that we continue with rate control with metoprolol. I did provide the patient with an IV dose of metoprolol without significant improvement in his heart rate. The cardiology team did reemphasize that the patient should reinitiate his Eliquis and remain compliant on it, and that oral dosing of metoprolol should be provided inpatient until his rate is controlled, and he would benefit from an outpatient oral metoprolol daily dose in addition to his once daily dofetilide. The patient was counseled that he should reach out to his outpatient cardiologists during or after this admission, to discuss this event and whether or not he requires readmission at a later date to increase his dofetilide, or repeat ablation, which has been discussed with him previously. I reached out to the hospitalist who is graciously accepted this patient for admission to their service, he will be transported to the floor. He remained hemodynamically appropriate while under my care. 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 well educated [facility] All Active Problems (Updated 03/03/25 @ 20:51 by Pooja Rose MD) Elevated liver enzymes (Acute) Atrial fibrillation with rapid ventricular response (Acute) Elevated serum creatinine (Acute) Shingles (Acute) BPH (benign prostatic hyperplasia) (Chronic) Erectile dysfunction (Acute) Anxiety disorder (Chronic) Tinnitus, bilateral (Acute) Osteoarthritis cervical spine (Acute) RLS (restless legs syndrome) (Chronic) 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) Medical History Chest pain Social History Smoking/Tobacco Use Status: Never Smoking risk assessment performed?: Yes Alcohol Intake: current Alcohol Intake frequency: holidays/special occasions only Drug use: Never Substance use type: does not use Housing: house Do you feel safe at home: Yes Do you feel safe in your relationship?: Yes
[2025-03-03 18:11] LABS: Abs Immature Grans 0.03 10^3/uL (0.0-0.06); HCT 47.2 % (40.0-50.0); HGB 16.0 g/dL (13.5-17.5); Immature Grans % 0.3 %; MCH 31.6 pg (27.0-33.0); MCHC 33.9 % (32.0-36.0); MCV 93 fL (80-95); MPV 11.0 fL (8.0-11.0); Platelet Count 175 10^3/uL (130-400); RBC 5.06 10^6/uL (4.36-5.78); RDW 12.6 % (11.8-14.1); RDW-SD 43.4 fL; WBC 8.74 10^3/uL (4.4-10.8)
[2025-03-03] MEDS: Lactated Ringers 1,000 ML 1000 ML IV (18:18)
[2025-03-03 18:50] LABS: ALT 29 U/L (16-63); AST 24 U/L (15-37); Albumin 4.5 g/dL (3.4-5.0); Alkaline Phosphatase 107 U/L (46-116); Anion Gap 13.5 mmol/L (3-11); BUN 25 mg/dL (7-18); Bilirubin, Total 0.4 mg/dL (0.2-1.0); CO2 25.5 mmol/L (21.0-32.0); Calcium 9.0 mg/dL (8.5-10.1); Chloride 102 mmol/L (98-107); Estimated GFR 57.29 (mL/min/1.73m2); Glucose 127 mg/dL (74-106); Magnesium 2.2 mg/dL (1.8-2.4); NT-proBNP 80 pg/mL (<300); Potassium 3.9 mmol/L (3.5-5.1); Sodium 141 mmol/L (136-145); Total Protein 8.0 g/dL (6.4-8.2); Troponin I 8 ng/L (<or=76)
[2025-03-03 19:46] LABS: Troponin I 14 ng/L (<or=76)
[2025-03-03] MEDS: Metoprolol 5 MG/5 ML VIAL IVP (19:53)
--- NOTE | 2025-03-03 20:45 | W.PM.HP.N ---
Date of service: 03/03/25 Time of Service: 20:30 Assessment and Plan Assessment and plan (1) Atrial fibrillation with rapid ventricular response: Status: Acute Assessment and plan: Possibly due to reduction in dofetilide dose and once-daily dosing Home HR measurement > 200 prior to arrival HR improved to 90's - 110's with metoprolol and fluids Per advice of patient's clinical lab clerk, Dr Kern at [facility], continue dofetilide at recently lowered dose - However instead of 250 mcg daily, start 125 mcg BID Increase home metoprolol succinate from 25 daily to 50 daily Close followup with cardiology recommended (2) On apixaban therapy: Status: Acute Assessment and plan: Patient discontinued apixaban when he was in NSR after ablation Lengthy discussion of risks of non-use of anticoagulation with history of afib even after ablation Restarting apixaban at 5 BID (3) RLS (restless legs syndrome): Status: Chronic Assessment and plan: Continue home gabapentin PRN melatonin HS (4) Takes dietary supplements: Status: Acute Assessment and plan: Hold vitamins and supplements while adjusting cardiac medicines. History of Present Illness History of Present Illness Chief Complaint: palpitations Narrative: Jeremie Li is a 74 year old man presenting March 03 with acute onset of palpitations and chest pain after exertion. He has longstanding atrial fibrillation. 3 days prior to arrival he had reduced his dose of dofetilide after discussion with his clinical lab clerk. Prior to this, he had enjoyed a 5 week period of NSR, after an ablation. He decided to stop taking his apixaban while he was in NSR. Patient checked his heart rate when he felt palpitations and it was above 200. He then took metoprolol succinate 25 mg and apixaban 5 mg. His heart rate did not slow after an hour, so he decided to come in. He feels that he is in generally excellent health other than his afib. On interview his chest pain has resolved. He denies shortness of breath, abdominal pain, N/V/D. In the ED he was found to be in afib with RVR, which resolved spontaneously to sinus tachycardia. BP elevated 194/104. EKG showed sinus tachycardia at 119. Labs were unremarkable. Shortly thereafter he went back into afib with RVR with rates under 140. The patient's primary clinical lab clerk at [facility], Dr Kern, was contacted and advised rate control with metoprolol, advising against increasing dofetilide. He was given LR 1L, metoprolol 5 IV and apixaban 5. HR just prior to admission was 70's - 110's and he had been normotensive since initial elevated BP. PMH includes afib s/p ablation, HTN, restless leg syndrome, BPH, HLD, hypomagnesemia. He takes several supplements including ascorbic acid, berberine, D3, folic acid, lysine, omega 3's, turmeric root. PFSH All Active Problems (Updated 03/04/25 @ 00:04 by Jas Mcclain MD) On apixaban therapy (Acute) Takes dietary supplements (Acute) Elevated liver enzymes (Acute) Atrial fibrillation with rapid ventricular response (Acute) Elevated serum creatinine (Acute) Shingles (Acute) BPH (benign prostatic hyperplasia) (Chronic) Erectile dysfunction (Acute) Anxiety disorder (Chronic) Tinnitus, bilateral (Acute) Osteoarthritis cervical spine (Acute) RLS (restless legs syndrome) (Chronic) 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) Medical History Chest pain Social History Smoking/Tobacco Use Status: Never Smoking risk assessment performed?: Yes Alcohol Intake: current Alcohol Intake frequency: holidays/special occasions only Drug use: Never Substance use type: does not use Housing: house Do you feel safe at home: Yes Do you feel safe in your relationship?: Yes Meds Allergies and Home Medications Allergies Allergy/AdvReac Type Severity Reaction Status Date / Time No Known Allergies Allergy Verified 12/31/24 19:38 Home Medications ?Medication ?Instructions ?Recorded ?Confirmed ?Type gabapentin 100 mg capsule 200 mg PO HS PRN 09/23/20 03/03/25 History ascorbic acid (vitamin C) 1,000 mg 4 g PO DAILY 09/24/20 03/03/25 History tablet cholecalciferol (vitamin D3) 25 75 mcg PO DAILY PRN 09/24/20 03/03/25 History mcg (1,000 unit) capsule folic acid 400 mcg tablet 0.8 mg PO DAILY 09/24/20 03/03/25 History lysine 500 mg tablet (L-Lysine) 1,000 mg PO DAILY PRN 09/24/20 03/03/25 History magnesium 250 mg tablet 250 mg PO DAILY 09/24/20 03/03/25 History omega-3 fatty acids 1,000 mg 2,000 mg PO DAILY 09/24/20 03/03/25 History capsule (Fish Oil Concentrate) turmeric root extract 500 mg 500 mg PO DAILY 09/24/20 03/03/25 History capsule vitamin B complex (Super B-50 1 cap PO DAILY 09/24/20 03/03/25 History Complex capsule) apixaban 5 mg tablet (Eliquis) 5 mg PO BID #60 tabs 06/10/24 03/03/25 Rx diazepam 5 mg tablet 5 mg PO PRN 12/04/24 03/03/25 History metoprolol succinate 25 mg 25 mg PO PRN 12/04/24 03/03/25 History tablet,extended release 24 hr pantoprazole 40 mg tablet,delayed 40 mg PO DAILY 12/04/24 03/03/25 History release burburine 500 mg PO DAILY 12/28/24 03/03/25 History dofetilide 250 mcg capsule 250 mcg PO BID 12/28/24 03/03/25 History Exam Narrative Exam Narrative: General: This is a pleasant man in no distress HEENT: Normocephalic, atraumatic CV: RRR Resp: CTAB Abd: soft, NTND MSK: voluntary motion x4 Neuro: awake, alert, no focal deficits Results Labs 03/03/25 17:56 03/03/25 17:56 Labs: Laboratory Results - last 24 hr 03/03/25 03/03/25 03/03/25 17:56 19:15 21:03 WBC 8.74 RBC 5.06 Hgb 16.0 Hct 47.2 MCV 93 MCH 31.6 MCHC 33.9 RDW 12.6 Plt Count 175 MPV 11.0 Immature Gran % 0.3 Neutrophils % 62.3 Lymphocytes % 27.5 Monocytes % 7.4 Eosinophils % 1.6 Basophils % 0.9 Nucleated RBC % 0.0 Absolute Neutrophils 5.44 Absolute Lymphocytes 2.40 Absolute Monocytes 0.65 Absolute Eosinophils 0.14 Absolute Basophils 0.08 Sodium 141 Potassium 3.9 Chloride 102 Carbon Dioxide 25.5 Anion Gap 13.5 H BUN 25 H Creatinine 1.3 Est GFR (CKD-EPI 2021) 57.29 Glucose 127 H Calcium 9.0 Magnesium 2.2 Total Bilirubin 0.4 AST 24 ALT 29 Alkaline Phosphatase 107 Troponin I 8 14 Cancelled NT-Pro-B Natriuret Pep 80 Total Protein 8.0 Albumin 4.5 Last Vital Signs Pulse 122 H 03/03/25 19:53 Resp 20 03/03/25 17:54 BP 130/99 H 03/03/25 19:53 Pulse Ox 97 03/03/25 17:54 Time Spent Time spent with Patient: 40-54 minutes Time was spent: preparing to see the patient(eg.review tests), obtaining and/or reviewing separately otained hiistory, ordering medications,tests, procedures, referring, communicating with other health medicare specialist, indepentently interpreting results, counseling the patient and care coordination
--- NOTE | 2025-03-03 21:09 | W.PC.ACHO ---
Registration Status: ADM EMMA Primary Language: Preferred Language: Georgian ED Information & Data Chief Complaint Palpitatns 03/03/25 18:04 Triage Note PT reports feeling 03/03/25 17:54 palpitations several minutes after stopping physical activity. PT took PRN metoprolol prior to coming into emergency department. PT reports feeling better soon after laying down on stretcher. Medical / Surgical History (Last Reviewed 12/31/24 @ 20:11 by Marla Watkins MD) Chest pain Most Recent Vital Signs Pulse 102 H 03/03/25 20:50 Respiratory Rate 10 L 03/03/25 20:50 Blood Pressure 126/82 03/03/25 20:31 Blood Pressure Mean 94 03/03/25 20:31 Blood Pressure Position Sitting 03/03/25 17:54 Pulse Oximetry 97 03/03/25 20:50 Oxygen Delivery Method Room Air 03/03/25 17:54 Oxygen Flow Rate 0 03/03/25 17:54 Allergies No Known Allergies Allergy (Verified 12/31/24 19:38) IV IV Catheter Type [Right Saline Lock Antecubital] IV Catheter Gauge [Right 18 Antecubital] Diet Orders Category Date Time Status Heart Healthy Eating [DIET] Nutrition 03/04/25 Breakfast Ordered Diagnostics 03/03/25 03/03/25 03/03/25 Range/Units 21:03 19:15 17:56 WBC 8.74 (4.4-10.8) 10^3/uL RBC 5.06 (4.36-5.78) 10^6/uL Hgb 16.0 (13.5-17.5) g/dL Hct 47.2 (40.0-50.0) % MCV 93 (80-95) fL MCH 31.6 (27.0-33.0) pg MCHC 33.9 (32.0-36.0) % RDW 12.6 (11.8-14.1) % Plt Count 175 (130-400) 10^3/uL MPV 11.0 (8.0-11.0) fL Immature Gran % 0.3 % Neutrophils % 62.3 % Lymphocytes % 27.5 % Monocytes % 7.4 % Eosinophils % 1.6 % Basophils % 0.9 % Nucleated RBC % 0.0 (0.0-0.3) % Absolute Neutrophils 5.44 (1.2-6.7) 10^3/uL Absolute Lymphocytes 2.40 (1.2-3.4) 10^3/uL Absolute Monocytes 0.65 (0.1-0.8) 10^3/uL Absolute Eosinophils 0.14 (0.0-0.7) 10^3/uL Absolute Basophils 0.08 (0.0-0.2) 10^3/uL Sodium 141 (136-145) mmol/L Potassium 3.9 (3.5-5.1) mmol/L Chloride 102 (98-107) mmol/L Carbon Dioxide 25.5 (21.0-32.0) mmol/L Anion Gap 13.5 H (3-11) mmol/L BUN 25 H (7-18) mg/dL Creatinine 1.3 (0.70-1.30) mg/dL Est GFR (CKD-EPI 2020) 57.29 (mL/min/1.73m2) Glucose 127 H (74-106) mg/dL Calcium 9.0 (8.5-10.1) mg/dL Magnesium 2.2 (1.8-2.4) mg/dL Total Bilirubin 0.4 (0.2-1.0) mg/dL AST 24 (15-37) U/L ALT 29 (16-63) U/L Alkaline Phosphatase 107 (46-116) U/L Troponin I Cancelled 14 8 (<or=76) ng/L NT-Pro-B Natriuret Pep 80 (<300) pg/mL Total Protein 8.0 (6.4-8.2) g/dL Albumin 4.5 (3.4-5.0) g/dL Intake and Output - 24 Hour Total 03/03/25 17:46 thru 03/03/25 19:15 Intake Total 1000 Balance 1000 Weight 99.79 kg Intake: IV 1000 Falls Risk Assessment History of Falls No History 03/03/25 20:50 Contributing Factors No Factors 03/03/25 20:50 Ambulatory Aids Independent 03/03/25 20:50 Tubes/Lines None 03/03/25 20:50 Gait Evaluation No gait disturbance 03/03/25 20:50 Cognition No cognitive impairment 03/03/25 20:50 Fall Total Score 0 03/03/25 20:50 Level of Risk Standard/Low Risk 03/03/25 20:50 Problems (Last Reviewed 12/31/24 @ 20:11 by Marla Watkins MD) Atrial fibrillation with rapid ventricular response (Acute) v v v v v v v v v Sending and/or Receiving Nurses: Please use comment section below to note any information pertinent to the patient hand-off not included above. Information / Comments: report received from ER. Pt is on RA. Vitals stable. On tele. Ind in room. Report received from: Agustín MEYERS
[2025-03-03] MEDS: Melatonin 3 MG TAB 6 MG PO (23:02)
[2025-03-03] MEDS: Gabapentin 100 MG CAP 300 MG PO (23:02)
[2025-03-03] MEDS: Apixaban 5 MG TAB PO (23:02)
[2025-03-04 04:47] VITALS: BP 133/78; PULSE 69; RESP 18; TEMP 36.4; O2SAT 97
[2025-03-04 06:39] LABS: Abs Immature Grans 0.01 10^3/uL (0.0-0.06); HCT 40.1 % (40.0-50.0); HGB 13.5 g/dL (13.5-17.5); Immature Grans % 0.1 %; MCH 31.9 pg (27.0-33.0); MCHC 33.7 % (32.0-36.0); MCV 95 fL (80-95); MPV 11.4 fL (8.0-11.0); Platelet Count 144 10^3/uL (130-400); RBC 4.23 10^6/uL (4.36-5.78); RDW 12.7 % (11.8-14.1); RDW-SD 43.8 fL; WBC 6.67 10^3/uL (4.4-10.8)
[2025-03-04 07:10] LABS: ALT 28 U/L (16-63); AST 19 U/L (15-37); Albumin 3.4 g/dL (3.4-5.0); Alkaline Phosphatase 70 U/L (46-116); Anion Gap 7.7 mmol/L (3-11); BUN 23 mg/dL (7-18); Bilirubin, Total 0.4 mg/dL (0.2-1.0); CO2 26.3 mmol/L (21.0-32.0); Calcium 8.5 mg/dL (8.5-10.1); Chloride 111 mmol/L (98-107); Estimated GFR 70.01 (mL/min/1.73m2); Glucose 95 mg/dL (74-106); Magnesium 2.1 mg/dL (1.8-2.4); Potassium 4.0 mmol/L (3.5-5.1); Sodium 145 mmol/L (136-145); Total Protein 6.4 g/dL (6.4-8.2)
[2025-03-04 07:27] VITALS: BP 120/70; PULSE 59; RESP 16; TEMP 36.5; O2SAT 98
--- NOTE | 2025-03-04 08:27 | PDOC.CMIN ---
Date of service: 03/04/25 Time of Service: 08:27 Care Management Initial Assmt Initial Assessment Reason for Hospitalization: afib RVR Functional Status/Living Situation Patient Presentation: Jeremie was sitting up in bed and visit with his Irene when CM met with him. He presented to the ED yesterday afternoon for evaluation of A-fib with RVR; See ED documentation. Per report, Jeremie was admitted in December with PAF with RVR and was transferred to [facility]. Advance Directives Advance Directives: Do you have an Advance Directive: Y 11/30/19, 11:14 AD On File at [facility]: Y 12/04/24, 23:34 Date Asked 01/18/25 01/18/25, 16:35 AD Date Reviewed 03/03/25 03/03/25, 17:50 COLST On File at [facility] No 05/28/21, 20:16 COLST Date Scanned Code Status Resuscitation Status Full Code Care Team Visit Care Team Role Provider Type Brandy Muse Primary Care Provider NON-[facility] STAFF PHYSICIAN Pojoa Rose MD Emergency Provider [facility] STAFF PHYSICIAN Jas Mcclain MD Admit Provider [facility] STAFF PHYSICIAN Attending Provider Social Determinants of Health Screening Social Determinants of health last assessed in clinic: 03/03/25 Will the Patient Participate in the Screening?: Yes Do you worry about having a steady place to live?: no Problems where you live: no known problems In the past 12 months, have you had to go without electric, gas, oil or water in your home?: no Has lack of transportation kept you from medical appointments or from doing things needed for daily living?: no Has anyone in your life made you feel unsafe or unsupported?: no How hard is it for you to pay for the very basics like food, housing, medical care, and heating? Would you say it is:: Not hard at all Do you want help finding or keeping work or a job?: I do not need or want help If for any reason you need help with day-to-day activities such as bathing, preparing meals, shopping, managing finances, etc., do you get the help you need?: I don?t need any help How often do you feel lonely or isolated from those around you?: Never Do you speak a language other than Yoruba at home?: No Does the patient want assistance with any of the above?: No PFSH All Active Problems (Updated 03/04/25 @ 00:04 by Jas Mcclain MD) On apixaban therapy (Acute) Takes dietary supplements (Acute) Elevated liver enzymes (Acute) Atrial fibrillation with rapid ventricular response (Acute) Elevated serum creatinine (Acute) Shingles (Acute) BPH (benign prostatic hyperplasia) (Chronic) Erectile dysfunction (Acute) Anxiety disorder (Chronic) Tinnitus, bilateral (Acute) Osteoarthritis cervical spine (Acute) RLS (restless legs syndrome) (Chronic) 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) Medical History Chest pain Social History Smoking/Tobacco Use Status: Never Smoking risk assessment performed?: Yes Alcohol Intake: current Alcohol Intake frequency: holidays/special occasions only Drug use: Never Substance use type: does not use Housing: house Do you feel safe at home: Yes Do you feel safe in your relationship?: Yes
[2025-03-04] MEDS: Apixaban 5 MG TAB PO (08:33)
[2025-03-04] MEDS: Metoprolol CR 25 MG TABCR 50 MG PO (08:33)
[2025-03-04] MEDS: Normal Saline Flush 10 ML SYR IVP (08:34)
--- NOTE | 2025-03-04 10:58 | PDOC.CMDIS ---
Date of service: 03/04/25 Time of Service: 11:08 LACE Index Scoring Tool Questions: Length of Stay (in days): 1 Was the patient admitted via the E.D.?: Yes E.D. Visits: 5 Answers: Total Score: 8 Risk of Readmission: Low Risk Care Management Discharge Plan Reason for Hospitalization: afib RVR Discharge Plan: Jeremie will discharge home today with no new services indicated. It is recommended he follow up with his community providers, cardiology, and discharge plan of care. He will transport via private vehicle by family. Patient/Family Education Needs: Review of discharge instruction, activity, limitation, and plan of care. 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
[2025-03-04 11:16] VITALS: BP 131/73; PULSE 59; RESP 16; TEMP 36.6; O2SAT 99
--- NOTE | 2025-03-04 12:04 | W.PM.DS.N ---
Date of service: 03/04/25 Time of Service: 12:05 DS: Diagnosis Discharge Diagnosis (1) Atrial fibrillation with rapid ventricular response: Status: Acute (2) On apixaban therapy: Status: Acute (3) RLS (restless legs syndrome): Status: Chronic (4) Takes dietary supplements: Status: Acute Discharge Plan Disposition Patient Disposition: Home Condition: Improving Discharge Details Reason For Visit: Afib RVR Admit Date/Time: 03/03/25 20:35 Admit Provider: Jas Mcclain Attending Provider: Jas Mcclain Primary Care Provider: Brandy Muse [facility] Course Hospital Course: This is a 74-year-old male patient with past medical history significant for atrial fibrillation anticoagulated on apixaban presents to the emergency department after feeling palpitations and dizziness after he had been doing strenuous yard work and taking little oral intake not staying hydrated. He denied any chest pain. He reports that 3 days prior his dose of dofetilide had been decreased. His workup in the emergency department did show A-fib with RVR. His case was discussed with his police communications operator at [facility] [place] Dr. Zheng who advised rate control on metoprolol and advised against increasing his dose utilized. He was given a liter of normal saline IV Lopressor and heart rate improved to the 70s. He remained normotensive. Overnight he has remained hemodynamically stable with rate controlled. He is can be discharged on metoprolol succinate 50 mg daily and advised to continue with his dofetilide at the reduced dose of 125 mg twice daily. He will track heart rate and blood pressure and bring log to his follow-up appointment or notify his police communications operator of any concerns i.e. bradycardia or tachycardia or hypotension. He is discharged home with no new services Discussed with Dr. Park Home Meds and New Rx's Prescriptions: New dofetilide 125 mcg Capsule 125 mcg PO BID Qty: 60 0RF metoprolol succinate 25 mg Tablet Extended Release 24 Hr 50 mg PO DAILY Qty: 30 0RF Continued ascorbic acid (vitamin C) 1,000 mg tablet 4 g PO DAILY omega-3 fatty acids [Fish Oil Concentrate] 1,000 mg capsule 2,000 mg PO DAILY cholecalciferol (vitamin D3) 25 mcg (1,000 unit) capsule 75 mcg PO DAILY PRN magnesium 250 mg tablet 250 mg PO DAILY folic acid 400 mcg tablet 0.8 mg PO DAILY vitamin B complex [Super B-50 Complex] Capsule 1 cap PO DAILY lysine [L-Lysine] 500 mg tablet 1,000 mg PO DAILY PRN turmeric root extract 500 mg capsule 500 mg PO DAILY gabapentin 100 mg capsule 200 mg PO HS PRN diazepam 5 mg tablet 5 mg PO PRN Patient Comments: TAKE 1 TABLET BY MOUTH TWICE DAILY NEEDED FOR ANXIETY Eliquis 5 mg Tablet 5 mg PO BID Qty: 60 0RF burburine 500 mg PO DAILY Discontinued metoprolol succinate 25 mg tablet extended release 24 hr 25 mg PO PRN dofetilide 250 mcg capsule 250 mcg PO BID No Action pantoprazole 40 mg tablet,delayed release (DR/EC) 40 mg PO DAILY Patient Comments: TAKE 1 TABLET BY MOUTH EVERY DAY -START TAKING FOR 3 DAYS PRIOR TO PROCEDURE AND FOR 30 DAYS AFTER ABLATION Discharge Instructions Instructions: Atrial fibrillation Additional Instructions: Take all medications as prescribed Push fluids to stay well-hydrated drinking at least 6 to 8 glasses or more water daily Call your police communications operator tomorrow to schedule follow-up appointment for further recommendations and management Stand Alone Forms: Nursing Discharge Form Referrals: Brandy Muse [Primary Care Provider, Medicine] Referral Note: Call office for follow up Activity:: Activity as Tolerated Equipment/Supplies:: No Equipment Needed Diet:: As Tolerated Discharge Orders Discharge Orders: Discharge Order (Routine); Ordered 03/04/25 Ordered By: Monica Marinelli Discharge Data Discharge Date/Time-TO BE ENTERED AT DEPARTURE: 03/04/25 12:26 DS: Summary Time Spent with Patient providing and/or coordinating discharge services: Greater than 30 minutes Status at Discharge Functional status at discharge: independent ambulation Overall status at discharge: patient is progressing back to baseline Mental Status: mental status grossly normal Speech and Movement: speech and movement normal Mood: congruent mood Affect: normal affect Quality:SDOH Health Related Social Needs: Health related social needs details pts is [employer] so pt and family arre very well educated Exam Narrative Exam Narrative: Well-appearing male stated age no acute distress head is atraumatic eyes nonicteric noninjected oral mucosas moist cardiovascular irregular rate controlled atrial fibrillation skin no rashes or lesions abdomen benign neurologic awake alert oriented no focal deficits psychiatric appropriate mood and affect Psych Mental Status: mental status grossly normal Speech and Movement: speech and movement normal Mood: congruent mood Affect: normal affect DS: Data Vitals/I&O Vitals and I&O: Vital Signs Temperature 36.6 C 03/04/25 11:16 Temperature Source Temporal Artery Scan 03/04/25 11:16 Pulse 59 L 03/04/25 11:16 Pulse Rhythm Regular 03/03/25 21:31 Respiratory Rate 16 03/04/25 11:16 Respiratory Effort Normal 03/03/25 21:31 Respiratory Depth Normal 03/03/25 21:31 Respiratory Pattern Normal 03/03/25 21:31 Blood Pressure 131/73 03/04/25 11:16 Blood Pressure Mean 92 03/04/25 11:16 Blood Pressure Position Sitting 03/03/25 17:54 Pulse Oximetry 99 03/04/25 11:16 Oxygen Delivery Method Room Air 03/04/25 11:16 Oxygen Flow Rate 0 03/04/25 11:16 Pain Level 0 03/04/25 04:47 Comment Pt sleeping, pt refused vitals. Nurse notified. 03/04/25 00:55 Intake & Output 03/03/25 03/04/25 03/04/25 23:59 11:59 23:59 Intake Total 1000 / 1000 250 / 250 Balance 1000 / 1000 250 / 250 Weight 99.79 kg Intake: IV 1000 / 1000 Oral 250 / 250 Other: Urine Color Yellow Yellow Urine Odor Normal Normal Comment Pt voids ind. in toilet. independent to bathroom Stool Size Moderate Stool Characteristics Formed Brown Data Completed and Pending Labs on day of discharge: Labs from last 24 hours 03/04/25 03/03/25 03/03/25 06:01 21:03 19:15 WBC 6.67 RBC 4.23 L Hgb 13.5 D Hct 40.1 MCV 95 MCH 31.9 MCHC 33.7 RDW 12.7 Plt Count 144 MPV 11.4 H Immature Gran % 0.1 Neutrophils % 64.7 Lymphocytes % 24.6 Monocytes % 7.8 Eosinophils % 1.6 Basophils % 1.2 Nucleated RBC % 0.0 Absolute Neutrophils 4.31 Absolute Lymphocytes 1.64 Absolute Monocytes 0.52 Absolute Eosinophils 0.11 Absolute Basophils 0.08 Sodium 145 Potassium 4.0 Chloride 111 H Carbon Dioxide 26.3 Anion Gap 7.7 BUN 23 H Creatinine 1.1 Est GFR (CKD-EPI 2020) 70.01 Glucose 95 Calcium 8.5 Magnesium 2.1 Total Bilirubin 0.4 AST 19 ALT 28 Alkaline Phosphatase 70 Troponin I Cancelled 14 NT-Pro-B Natriuret Pep Total Protein 6.4 Albumin 3.4 03/03/25 17:56 WBC 8.74 RBC 5.06 Hgb 16.0 Hct 47.2 MCV 93 MCH 31.6 MCHC 33.9 RDW 12.6 Plt Count 175 MPV 11.0 Immature Gran % 0.3 Neutrophils % 62.3 Lymphocytes % 27.5 Monocytes % 7.4 Eosinophils % 1.6 Basophils % 0.9 Nucleated RBC % 0.0 Absolute Neutrophils 5.44 Absolute Lymphocytes 2.40 Absolute Monocytes 0.65 Absolute Eosinophils 0.14 Absolute Basophils 0.08 Sodium 141 Potassium 3.9 Chloride 102 Carbon Dioxide 25.5 Anion Gap 13.5 H BUN 25 H Creatinine 1.3 Est GFR (CKD-EPI 2020) 57.29 Glucose 127 H Calcium 9.0 Magnesium 2.2 Total Bilirubin 0.4 AST 24 ALT 29 Alkaline Phosphatase 107 Troponin I 8 NT-Pro-B Natriuret Pep 80 Total Protein 8.0 Albumin 4.5 PFSH All Active Problems (Updated 03/05/25 @ 00:04 by ANG DELANEY) On apixaban therapy (Acute) Takes dietary supplements (Acute) Elevated liver enzymes (Acute) Atrial fibrillation with rapid ventricular response (Acute) Elevated serum creatinine (Acute) Shingles (Acute) BPH (benign prostatic hyperplasia) (Chronic) Erectile dysfunction (Acute) Anxiety disorder (Chronic) Tinnitus, bilateral (Acute) Osteoarthritis cervical spine (Acute) RLS (restless legs syndrome) (Chronic) 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) Medical History Chest pain Social History Smoking/Tobacco Use Status: Never Smoking risk assessment performed?: Yes Alcohol Intake: current Alcohol Intake frequency: holidays/special occasions only Drug use: Never Substance use type: does not use Housing: house Do you feel safe at home: Yes Do you feel safe in your relationship?: Yes Time Spent with Patient Time Spent with Patient: 45-69 minutes Time was spent: preparing to see the patient(eg.review tests), obtaining and/or reviewing separately otained hiistory, ordering medications,tests, procedures, referring, communicating with other health critical care physician, indepentently interpreting results and counseling the patient
== END 2025-03-04 12:26 | disposition home or self-care (01) ==
LOC: ER 17:51 → MS 20:51
PROVIDERS: Admitting Provider Family Medicine; Emergency Provider Emergency Medicine; PCP Family Medicine; Responsible Provider Nurse Practitioner Acute Care; Visit Provider Family Medicine
DX: I48.91 Unspecified atrial fibrillation (principal); Z79.01 Long term (current) use of anticoagulants; G25.81 Restless legs syndrome; Z79.899 Other long term (current) drug therapy; R07.9 Chest pain, unspecified; I10 Essential (primary) hypertension; N40.0 Benign prostatic hyperplasia without lower urinary tract symptoms; E78.5 Hyperlipidemia, unspecified; E83.42 Hypomagnesemia; F41.9 Anxiety disorder, unspecified; M17.0 Bilateral primary osteoarthritis of knee
CPT/HCPCS: 00123; 36415; 80053; 93005; 96361; 96374; 99285; 83735; 83880; 84484; 85025; 93010; 99222; 99239; G0378

== ENCOUNTER → 2025-03-26 10:07 | Outpatient (BNVA) | payer MEDICARE, SELFPAY | PROVIDERS: PCP Family Medicine; Referring Provider Family Medicine; Visit Provider Student in an Organized Health Care Education/Training Program | DX: M17.12 Unilateral primary osteoarthritis, left knee (principal); M16.11 Unilateral primary osteoarthritis, right hip | CPT/HCPCS: 99213 ==

== ENCOUNTER 2025-04-04 17:00 | Emergency (ER) | payer MEDICARE, SELFPAY ==
[2025-04-04] VITALS (52 sets, daily range): BP systolic 98–159; BP diastolic 61–101; PULSE 60–245; RESP 9–28; TEMP 36.7; O2SAT 93–98
--- NOTE | 2025-04-04 17:00 | RT.EKG_ITS ---
APPROVED REPORT Exam: Resting ECG Reason for Exam: tachycardia Patient Location: E HR:102 bpm ECG Measurements Heart Rate 102 AXIS IN [id number] P [id number] QRSd 81 QRS -5 QT 318 T 38 QTc 416 Conclusion Atrial fibrillation...V-rate 76-132, irreg A-activity
--- NOTE | 2025-04-04 17:00 | RT.EKG_ITS ---
APPROVED REPORT Exam: Resting ECG Reason for Exam: rapid heart rate Patient Location: E HR:238 bpm ECG Measurements Heart Rate 238 AXIS CA 160 P 106 QRSd 77 QRS -36 QT 224 T 132 QTc 446 Conclusion Supraventricular tachycardia...V-rate>(220-age), QRSd<120 Inferior infarct, old...Q >35mS, II III aVF Repolarization abnormality, prob rate related...ST dep, T neg, tachycardia
--- NOTE | 2025-04-04 17:00 | RT.EKG_ITS ---
APPROVED REPORT Exam: Resting ECG Reason for Exam: afib, slower Patient Location: E HR:100 bpm ECG Measurements Heart Rate 100 AXIS ND [id number] P [id number] QRSd 79 QRS -14 QT 340 T 31 QTc 439 Conclusion Atrial fibrillation...? atrial activity Ventricular premature complex...V complex w/ short R-R interval Consider anteroseptal infarct...Q >30mS, dimin R, V1-V2
[2025-04-04] MEDS: dilTIAZem 25 MG/5 ML VIAL 20 MG IVP ×2 (17:10→17:53)
--- NOTE | 2025-04-04 17:11 | W.ED.GENAD ---
Discharge Plan Disposition Patient Disposition: Home Condition: Stable Discharge Details Clinical Impression: SVT (supraventricular tachycardia) Primary Care Provider: Brandy Muse ED Provider: Denys Knutson Home Meds and New Rx's Prescriptions: Continued ascorbic acid (vitamin C) 1,000 mg tablet 4 g PO DAILY cholecalciferol (vitamin D3) 25 mcg (1,000 unit) capsule 75 mcg PO DAILY PRN magnesium 250 mg tablet 250 mg PO DAILY vitamin B complex [Super B-50 Complex] Capsule 1 cap PO DAILY lysine [L-Lysine] 500 mg tablet 1,000 mg PO DAILY PRN turmeric root extract 500 mg capsule 500 mg PO DAILY gabapentin 100 mg capsule 100 mg PO HS PRN diazepam 5 mg tablet 5 mg PO PRN Patient Comments: TAKE 1 TABLET BY MOUTH TWICE DAILY NEEDED FOR ANXIETY acyclovir 800 mg tablet 800 mg PO DAILY Patient Comments: TAKE 1 TABLET BY MOUTH FIVE TIMES DAILY FOR 7 DAYS. SPACE EVENLY WHILE AWAKE. Pt states he takes PRN for shingles ML, RN 04/04/25 metoprolol succinate 25 mg Tablet Extended Release 24 Hr 25 mg PO DAILY Eliquis 5 mg Tablet 5 mg PO BID Qty: 60 0RF Patient Comments: Pt states taking once daily - ML, RN 04/04/25 burburine 500 mg PO DAILY dofetilide 125 mcg Capsule 125 mcg PO BID Qty: 60 0RF Patient Comments: Pt states he takes once daily 04/04/25 No Action omega-3 fatty acids [Fish Oil Concentrate] 1,000 mg capsule 2,000 mg PO DAILY folic acid 400 mcg tablet 0.8 mg PO DAILY Discharge Instructions Additional Instructions: You were in a supraventricular rhythm which was treated with IV medication. Since you are not taking a full tablet of the Eliquis twice a day the risk of doing a cardioversion was too high. Take 2 tablets or 50 mg of metoprolol daily unless otherwise instructed by her ultrasonic solderer. If you feel more ill or have new symptoms such as high fevers or severe chest pain or feel like you may pass out return to the emergency department for reevaluation. HPI General Date/Time Provider Initiated Documentation: 04/04/25 17:01. Limitations to Documentation: no limitations. Information obtained by: patient. History of Present Illness 74 year old M presents to the emergency department with the chief complaint of feels heart rate is elevated, described as moderate, Patient started experiencing this hour(s) (2) and it has been constant. No relieving factors improve symptom(s), No exacerbating factors reported . Patient notes no other symptoms.; denies fever/chills and shortness of breath. Patient did receive the following treatments prior to arrival, none Related Data Home Medications Medication Instructions Recorded Confirmed gabapentin 100 mg capsule 100 mg PO HS PRN 09/23/20 04/04/25 ascorbic acid (vitamin C) 1,000 mg 4 g PO DAILY 09/24/20 04/04/25 tablet cholecalciferol (vitamin D3) 25 75 mcg PO DAILY PRN 09/24/20 04/04/25 mcg (1,000 unit) capsule folic acid 400 mcg tablet 0.8 mg PO DAILY 09/24/20 04/04/25 lysine 500 mg tablet (L-Lysine) 1,000 mg PO DAILY PRN 09/24/20 04/04/25 magnesium 250 mg tablet 250 mg PO DAILY 09/24/20 04/04/25 omega-3 fatty acids 1,000 mg 2,000 mg PO DAILY 09/24/20 04/04/25 capsule (Fish Oil Concentrate) turmeric root extract 500 mg 500 mg PO DAILY 09/24/20 04/04/25 capsule vitamin B complex (Super B-50 1 cap PO DAILY 09/24/20 04/04/25 Complex capsule) apixaban 5 mg tablet (Eliquis) 5 mg PO BID #60 tabs 06/10/24 04/04/25 diazepam 5 mg tablet 5 mg PO PRN 12/04/24 04/04/25 burburine 500 mg PO DAILY 12/28/24 04/04/25 dofetilide 125 mcg capsule 125 mcg PO BID #60 caps 03/04/25 04/04/25 acyclovir 800 mg tablet 800 mg PO DAILY 04/04/25 04/04/25 metoprolol succinate 25 mg 25 mg PO DAILY 04/04/25 04/04/25 tablet,extended release 24 hr Previous Rx's Medication Instructions Recorded apixaban 5 mg tablet (Eliquis) 5 mg PO BID #60 tabs 06/10/24 dofetilide 125 mcg capsule 125 mcg PO BID #60 caps 03/04/25 Allergies Allergy/AdvReac Type Severity Reaction Status Date / Time No Known Allergies Allergy Verified 04/04/25 17:16 General Stated Complaint: Arrhythmia ZION: 2 Review of Systems All systems reviewed & are unremarkable except as noted in HPI and below Constitutional Constitutional: Denies chills, Denies fever(s) and Denies weakness Cardiovascular Cardiovascular: Denies chest pain, Reports palpitations and Denies dyspnea Respiratory Respiratory: Denies dyspnea Gastrointestinal Gastrointestinal: Denies abdominal pain and Denies vomiting Neurologic Neurologic: Denies weakness Endocrine Endocrine: Reports palpitations Exam Const General: no acute distress Orientation: alert HENMT Head: normal to inspection Ears: external ears normal General nose exam: external nose normal Mouth: moist mucous membranes Eyes General: appearance normal, both eyes and all related structures Neck Neck: normal visual inspection Resp Effort & Inspection: normal respiratory effort and able to speak in complete sentences Auscultation: clear to auscultation bilaterally Cardio Jugular venous pressure: no JVD Rate: tachycardic Skin General skin exam: no rashes or lesions noted Neuro General: patient alert and patient oriented x3 Extrem General: normal to inspection Psych Mental Status: mental status grossly normal Course Vital Signs Vital signs: Vital Signs Temperature 36.7 C 04/04/25 17:03 Pulse 245 H 04/04/25 17:03 Respiratory Rate 23 04/04/25 17:03 Blood Pressure 159/98 H 04/04/25 17:03 Pulse Oximetry 97 04/04/25 17:03 Temperature 36.7 C 04/04/25 17:03 Temperature Source Tympanic 04/04/25 17:03 Pulse 245 H 04/04/25 17:03 Respiratory Rate 23 04/04/25 17:03 Blood Pressure 159/98 H 04/04/25 17:03 Pulse Oximetry 97 04/04/25 17:03 Pain Level 4 04/04/25 17:03 Medical Decision Making 74-year-old male with a history of A-fib on apixaban, and ablation earlier this year is currently on dofetilide was also placed on metoprolol after having A-fib with RVR in February comes in after he started feeling heart rate was elevated. He says he felt well all day and has not had any fevers, he denies any chest pressure or chest pain. He is active x 4 and arrival answering questions appropriately. He is noted to be in SVT with rates in the 240s. He denies any lightheadedness or sensation that he can pass out. He has no leg swelling or calf tenderness, no abdominal tenderness. Given his history of A-fib and what appears to be SVT I am going to treat him symptoms with IV diltiazem and check CBC CMP and troponin monitor on telemetry. After 20 mg of IV diltiazem patient now in A-fib with rates in the 110-130 range Patient still in A-fib, rates crept up to 130s so was given another 20 mg IV dose and now his rates are in the 90s. Labs thus far unremarkable pending delta tropes. He states his ablation was at [facility] and he sees Dr. Daniel, will consult with cardiology at [facility] for further recs patient had been in the 90's heart rate for an hour and then went back up to 140's so was given IV 5mg lopressor. Spoke with Dr. Wheatley from cardiology who recommended cardioversion and if successful can be d/c'd and f/u with them. Discussed with the patient and he is hesitant for cardioversion and declines at this time, wants to wait one hour to see how he is feeling. He has medical decision making capacity and understands the reasoning for cardioversion and has had 3 in the past per the patient. patient now states he has only been taking half a tablet twice a day of the eliquis so advised this isn't fully antigoagulated so the risk of cardioversion would be too high. His heart rates have been in the 90-110 range. Offered obs admission here but he declines wih I feel is reasonable given reassuring workup and he has known afib. He will f/u with ultrasonic solderer and return precautionsgiven Differential Diagnosis Differential Diagnosis: SVT, A-fib with RVR, electrolyte abnormality Medical Records Medical records reviewed: Yes I reviewed the patient's medical records. Lab Data Lab results reviewed: Yes I reviewed the patient's lab results. ECG Data Attestation: I personally reviewed and interpreted this ECG (s) as follows: Prior ECG tracings: available for review Interpretation: First EKG shows supraventricular tachycardia, rate of 240, no STEMI 2nd ekg afib rate of 102 no stemi . EKG shows A-fib, rate of 100, no STEMI. Quality:SDOH Health Related Social Needs: Health related social needs details pts is [employer] so pt and family arre very well educated Critical Care Time Critical Care Time Critical Care Time: Yes Total Critical Care Time: 45 (minutes ) Attestation: Time spent on lab review, hemodynamic monitoring and frequent reassessments in a patient with SVT requiring IV diltiazem and the potential to deteriorate at any time. PFSH All Active Problems (Updated 04/04/25 @ 20:30 by Denys Knutson MD) SVT (supraventricular tachycardia) (Chronic) Degenerative joint disease of right hip (Acute) On apixaban therapy (Acute) Takes dietary supplements (Acute) Elevated liver enzymes (Acute) Atrial fibrillation with rapid ventricular response (Acute) Elevated serum creatinine (Acute) Shingles (Acute) BPH (benign prostatic hyperplasia) (Chronic) Erectile dysfunction (Acute) Anxiety disorder (Chronic) Tinnitus, bilateral (Acute) Osteoarthritis cervical spine (Acute) RLS (restless legs syndrome) (Chronic) 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) Medical History Chest pain Social History Smoking/Tobacco Use Status: Never Smoking risk assessment performed?: Yes Alcohol Intake: never Drug use: Never Substance use type: does not use Housing: house Do you feel safe at home: Yes Do you feel safe in your relationship?: Yes
[2025-04-04] MEDS: Normal Saline 1,000 ML 1000 ML IV (17:15)
[2025-04-04 17:19] LABS: Abs Immature Grans 0.04 10^3/uL (0.0-0.06); HCT 48.8 % (40.0-50.0); HGB 16.3 g/dL (13.5-17.5); Immature Grans % 0.5 %; MCH 31.3 pg (27.0-33.0); MCHC 33.4 % (32.0-36.0); MCV 94 fL (80-95); MPV 10.9 fL (8.0-11.0); Platelet Count 171 10^3/uL (130-400); RBC 5.21 10^6/uL (4.36-5.78); RDW 13.1 % (11.8-14.1); RDW-SD 44.9 fL; WBC 8.24 10^3/uL (4.4-10.8)
[2025-04-04 17:40] LABS: INR 1.0 (0.9-1.1); PTT Activated 24.8 sec (20.6-30.2); Prothrombin Time 10.2 sec (9.1-11.1)
[2025-04-04 17:44] LABS: ALT 44 U/L (16-63); AST 32 U/L (15-37); Albumin 4.6 g/dL (3.4-5.0); Alkaline Phosphatase 121 U/L (46-116); Anion Gap 12.0 mmol/L (3-11); BUN 21 mg/dL (7-18); Bilirubin, Total 0.4 mg/dL (0.2-1.0); CO2 25.0 mmol/L (21.0-32.0); Calcium 9.3 mg/dL (8.5-10.1); Chloride 104 mmol/L (98-107); Glucose 122 mg/dL (74-106); Magnesium 2.2 mg/dL (1.8-2.4); Potassium 3.9 mmol/L (3.5-5.1); Sodium 141 mmol/L (136-145); TSH (W/Ref FT4) 4.54 uIU/mL (0.36-3.74); Total Protein 8.6 g/dL (6.4-8.2); Troponin I 9 ng/L (<or=76)
[2025-04-04 18:51] LABS: Troponin I 13 ng/L (<or=76)
[2025-04-04] MEDS: Metoprolol 5 MG/5 ML VIAL IVP (18:56)
== END 2025-04-04 20:42 | disposition home or self-care (01) ==
PROVIDERS: Emergency Provider Emergency Medicine; PCP Family Medicine
DX: I47.10 Supraventricular tachycardia, unspecified (principal)
CPT/HCPCS: 36415; 80053; 93005; 96361; 96374; 96375; 96376; 99291; 83735; 84439; 84443; 84484; 85025; 85610; 85730; 93010

== ENCOUNTER 2025-04-28 11:05 | Emergency (ER) | payer MEDICARE, SELFPAY ==
[2025-04-28] VITALS (17 sets, daily range): BP systolic 100–138; BP diastolic 63–95; PULSE 61–133; RESP 5–36; TEMP 36.6; O2SAT 84–99
--- NOTE | 2025-04-28 11:00 | RT.EKG_ITS ---
APPROVED REPORT Exam: Resting ECG Reason for Exam: afib Patient Location: E HR:131 bpm ECG Measurements Heart Rate 131 AXIS WY 329 P 68 QRSd 88 QRS -11 QT 345 T 54 QTc 509 Conclusion Sinus tachycardia...rate> 99 Prolonged WY interval...WY >210, V-rate 121-300 Prolonged QT interval...QTc >500mS Physician: No STEMI, Sinus, HOWEVER, V6 shows atypical or irregular P waves, suggestive of a supraventricular atrial rythm
[2025-04-28] MEDS: dilTIAZem 25 MG/5 ML VIAL 15 MG IVP (11:42)
[2025-04-28 11:49] LABS: Abs Immature Grans 0.03 10^3/uL (0.0-0.06); HCT 47.7 % (40.0-50.0); HGB 15.9 g/dL (13.5-17.5); Immature Grans % 0.3 %; MCH 31.1 pg (27.0-33.0); MCHC 33.3 % (32.0-36.0); MCV 93 fL (80-95); MPV 11.2 fL (8.0-11.0); Platelet Count 170 10^3/uL (130-400); RBC 5.11 10^6/uL (4.36-5.78); RDW 13.2 % (11.8-14.1); RDW-SD 45.1 fL; WBC 8.84 10^3/uL (4.4-10.8)
[2025-04-28 12:02] LABS: INR 1.1 (0.9-1.1); PTT Activated 27.0 sec (20.6-30.2); Prothrombin Time 11.2 sec (9.1-11.1)
[2025-04-28 12:09] LABS: ALT 20 U/L (10-49); AST 23 U/L (<34); Albumin 4.6 g/dL (3.4-5.0); Alkaline Phosphatase 95 U/L (46-116); Anion Gap 9 mmol/L (3-11); BUN 24 mg/dL (9-23); Bilirubin, Total 0.90 mg/dL (0.2-1.2); CO2 25.0 mmol/L (20.0-31.0); Calcium 9.0 mg/dL (8.3-10.6); Chloride 107 mmol/L (98-107); Glucose 103 mg/dL (74-106); Potassium 4.2 mmol/L (3.5-5.1); Sodium 141 mmol/L (136-145); Total Protein 7.4 g/dL (5.7-8.2)
[2025-04-28 12:10] LABS: Troponin I 3 ng/L (<54)
[2025-04-28 12:13] LABS: TSH (W/Ref FT4) 3.05 uIU/mL (0.55-4.78)
--- NOTE | 2025-04-28 12:34 | W.ED.GENAD ---
Discharge Plan Disposition Patient Disposition: Home Condition: Good Discharge Details Clinical Impression: Tachycardia Primary Care Provider: Brandy Muse ED Provider: Sam Bruno Home Meds and New Rx's Prescriptions: No Action ascorbic acid (vitamin C) 1,000 mg tablet 4 g PO DAILY omega-3 fatty acids [Fish Oil Concentrate] 1,000 mg capsule 2,000 mg PO DAILY cholecalciferol (vitamin D3) 25 mcg (1,000 unit) capsule 75 mcg PO DAILY PRN magnesium 250 mg tablet 250 mg PO DAILY folic acid 400 mcg tablet 0.8 mg PO DAILY vitamin B complex [Super B-50 Complex] Capsule 1 cap PO DAILY lysine [L-Lysine] 500 mg tablet 1,000 mg PO DAILY PRN turmeric root extract 500 mg capsule 500 mg PO DAILY gabapentin 100 mg capsule 100 mg PO HS PRN diazepam 5 mg tablet 5 mg PO PRN Patient Comments: TAKE 1 TABLET BY MOUTH TWICE DAILY NEEDED FOR ANXIETY acyclovir 800 mg tablet 800 mg PO DAILY Patient Comments: TAKE 1 TABLET BY MOUTH FIVE TIMES DAILY FOR 7 DAYS. SPACE EVENLY WHILE AWAKE. Pt states he takes PRN for shingles ML, RN 04/04/25 metoprolol succinate 25 mg Tablet Extended Release 24 Hr 25 mg PO DAILY Eliquis 5 mg Tablet 5 mg PO BID Qty: 60 0RF Patient Comments: Pt states taking once daily - MLBIJAN 04/04/25 burburine 500 mg PO DAILY dofetilide 125 mcg Capsule 125 mcg PO BID Qty: 60 0RF Patient Comments: Pt states he takes once daily 04/04/25 Discharge Instructions Instructions: Tachycardia Additional Instructions: At this time your tachycardia has resolved after the Cardizem. Please continue to stay well-hydrated, and follow-up closely with your street engineer at your scheduled appointment this week. Please continue to take your medications as prescribed and as you have been doing. If you notice any worsening of your symptoms, or any new symptoms such as vomiting, diarrhea, fever, chills, shortness of breath, chest pain, numbness, weakness, or fainting , please return immediately to the emergency department for reevaluation. Please follow up with your primary care provider as soon as possible for reassessment and reevaluation. As always, it was a pleasure participating in your medical care today. Stand Alone Forms: Portal Information Referrals: Brandy Muse [Primary Care Provider, Medicine] HPI General Date/Time Provider Initiated Documentation: 04/28/25 11:21. HPI Narrative: This is a pleasant 74-year-old male with a past medical history of atrial fibrillation with cardiac ablation on 11/29/2024 with subsequent repeat A-fib just a few days later who was subsequently transferred to [facility] and given Tikosyn load, has been taking that ever since, doses recently been dropped from 250 twice daily to 125 twice daily 2 months ago. He is on Eliquis as prescribed and has been taking this as directed, past medical history also includes restless leg syndrome, anxiety, BPH. Patient presents today for elevated heart rate and palpitations. Patient states that 2 days ago he was doing exertional work outside, trying to be cautious but still pushing himself slightly more than normal. He noticed that his heart rate would go up to the 130s to 140s, and since then he has had intermittent episodes where he continues to have elevated heart rate and tachycardia which seems to come and go for our long periods. He denies any chest discomfort. He denies any excessive caffeine use. No medication changes otherwise. No missed doses. No other complaints. He denies any syncope or lightheadedness. He is currently in a persistently elevated heart rate at this time for the last day, and so he came with his significant other for further assessment. He normally takes a Lopressor when this happens, however his blood pressure was slightly low this morning and so they decided to hold off and come to the ER alternatively. No other complaints at this time. No other modifying factors. Related Data Home Medications Medication Instructions Recorded Confirmed gabapentin 100 mg capsule 100 mg PO HS PRN 09/23/20 04/04/25 ascorbic acid (vitamin C) 1,000 mg 4 g PO DAILY 09/24/20 04/04/25 tablet cholecalciferol (vitamin D3) 25 75 mcg PO DAILY PRN 09/24/20 04/04/25 mcg (1,000 unit) capsule folic acid 400 mcg tablet 0.8 mg PO DAILY 09/24/20 04/04/25 lysine 500 mg tablet (L-Lysine) 1,000 mg PO DAILY PRN 09/24/20 04/04/25 magnesium 250 mg tablet 250 mg PO DAILY 09/24/20 04/04/25 omega-3 fatty acids 1,000 mg 2,000 mg PO DAILY 09/24/20 04/04/25 capsule (Fish Oil Concentrate) turmeric root extract 500 mg 500 mg PO DAILY 09/24/20 04/04/25 capsule vitamin B complex (Super B-50 1 cap PO DAILY 09/24/20 04/04/25 Complex capsule) apixaban 5 mg tablet (Eliquis) 5 mg PO BID #60 tabs 06/10/24 04/04/25 diazepam 5 mg tablet 5 mg PO PRN 12/04/24 04/04/25 burburine 500 mg PO DAILY 12/28/24 04/04/25 dofetilide 125 mcg capsule 125 mcg PO BID #60 caps 03/04/25 04/04/25 acyclovir 800 mg tablet 800 mg PO DAILY 04/04/25 04/04/25 metoprolol succinate 25 mg 25 mg PO DAILY 04/04/25 04/04/25 tablet,extended release 24 hr Previous Rx's Medication Instructions Recorded apixaban 5 mg tablet (Eliquis) 5 mg PO BID #60 tabs 06/10/24 dofetilide 125 mcg capsule 125 mcg PO BID #60 caps 03/04/25 Allergies Allergy/AdvReac Type Severity Reaction Status Date / Time No Known Allergies Allergy Verified 04/04/25 17:16 General Stated Complaint: Arrhythmia ZION: 3 Exam Narrative Exam Narrative: 1.Const: Well-nourished, Well-developed, appearing stated age 2.Eyes: PERRL, no conjunctival injection, and symmetrical lids. 3.ENT: Atraumatic external nose and ears. Moist MM. Neck: Symmetric, trachea midline, No thyromegaly. 4.CVS: +S1/S2, Peripheral pulses 2+ and equal in all extremities. Brisk capillary refill in all extremities. 5.RESP: Unlabored respiratory effort. Clear to auscultation bilaterally. No wheezes rales or rhonchi 6.GI: Soft, Nontender/Nondistended, No hepatosplenomegaly. No guarding or rebound. 7.MSK: Normocephalic/Atraumatic, Extremities w/o deformity or ttp No cyanosis or clubbing, Normal movement of all extremities 8.Skin: Warm, Dry. No rashes or lesions. 9.Neuro: instrument adjuster II-XII grossly intact. Sensation grossly intact, no focal neurologic deficits. 10.Psych: (AAO) x3. Appropriate mood and affect Course Vital Signs Vital signs: Vital Signs Pulse 61 04/28/25 11:18 Respiratory Rate 18 04/28/25 11:18 Pulse Oximetry 84 L 04/28/25 11:18 Temperature 36.6 C 04/28/25 11:22 Temperature Source Oral 04/28/25 11:22 Pulse 71 04/28/25 11:50 Pulse 76 04/28/25 11:51 Respiratory Rate 12 04/28/25 11:51 Blood Pressure 111/67 04/28/25 11:50 Blood Pressure Mean 79 04/28/25 11:50 Blood Pressure Position Sitting 04/28/25 11:22 Pulse Oximetry 99 04/28/25 11:50 Oxygen Delivery Method Room Air 04/28/25 11:22 Oxygen Flow Rate 0 04/28/25 11:22 Lab/Test Results Lab/Test Results: Laboratory Tests Range/Units 04/28/25 04/28/25 11:10 11:36 WBC (4.4-10.8) 10^3/uL 8.84 RBC (4.36-5.78) 10^6/uL 5.11 Hgb (13.5-17.5) g/dL 15.9 Hct (40.0-50.0) % 47.7 MCV (80-95) fL 93 MCH (27.0-33.0) pg 31.1 MCHC (32.0-36.0) % 33.3 RDW (11.8-14.1) % 13.2 Plt Count (130-400) 10^3/uL 170 MPV (8.0-11.0) fL 11.2 H Immature Gran % % 0.3 Neutrophils % % 67.1 Lymphocytes % % 23.6 Monocytes % % 7.2 Eosinophils % % 1.0 Basophils % % 0.8 Nucleated RBC % (0.0-0.3) % 0.0 Absolute Neutrophils (1.2-6.7) 10^3/uL 5.92 Absolute Lymphocytes (1.2-3.4) 10^3/uL 2.09 Absolute Monocytes (0.1-0.8) 10^3/uL 0.64 Absolute Eosinophils (0.0-0.7) 10^3/uL 0.09 Absolute Basophils (0.0-0.2) 10^3/uL 0.07 PT (9.1-11.1) sec 11.2 H INR (0.9-1.1) 1.1 APTT (20.6-30.2) sec 27.0 Sodium (136-145) mmol/L 141 Potassium (3.5-5.1) mmol/L 4.2 Chloride (98-107) mmol/L 107 Carbon Dioxide (20.0-31.0) mmol/L 25.0 Anion Gap (3-11) mmol/L 9 BUN (9-23) mg/dL 24 H Creatinine (0.73-1.18) mg/dL 1.35 H Est GFR (CKD-EPI 2020) (mL/min/1.73m2) 51.46 Glucose (74-106) mg/dL 103 Calcium (8.3-10.6) mg/dL 9.0 Total Bilirubin (0.2-1.2) mg/dL 0.90 AST (<34) U/L 23 ALT (10-49) U/L 20 Alkaline Phosphatase (46-116) U/L 95 Troponin I (<54) ng/L 3 NT-Pro-B Natriuret Pep (<300) pg/mL 2846 H Total Protein (5.7-8.2) g/dL 7.4 Albumin (3.4-5.0) g/dL 4.6 TSH (0.55-4.78) uIU/mL 3.05 Medical Decision Making This is a pleasant 74-year-old male with a past medical history of atrial fibrillation with cardiac ablation on 11/29/2024 with subsequent repeat A-fib just a few days later who was subsequently transferred to [facility] and given Tikosyn load, has been taking that ever since, doses recently been dropped from 250 twice daily to 125 twice daily 2 months ago. He is on Eliquis as prescribed and has been taking this as directed, past medical history also includes restless leg syndrome, anxiety, BPH. Patient presents today for elevated heart rate and palpitations. Patient states that 2 days ago he was doing exertional work outside, trying to be cautious but still pushing himself slightly more than normal. He noticed that his heart rate would go up to the 130s to 140s, and since then he has had intermittent episodes where he continues to have elevated heart rate and tachycardia which seems to come and go for our long periods. He denies any chest discomfort. He denies any excessive caffeine use. No medication changes otherwise. No missed doses. No other complaints. He denies any syncope or lightheadedness. He is currently in a persistently elevated heart rate at this time for the last day, and so he came with his significant other for further assessment. He normally takes a Lopressor when this happens, however his blood pressure was slightly low this morning and so they decided to hold off and come to the ER alternatively. No other complaints at this time. No other modifying factors. Physical exam demonstrates a well-appearing male, no severely dry mucous membranes, no chest wall tenderness. No hypotension. Heart rate is in the 130s, EKG appears to show a sinus tachycardia, however there does appear to be relatively atypical or inconsistent P waves noted in V6. However other than this rhythm appears quite regular. Exact source of SVT versus A-fib with RVR is not absolutely clear. We will gently rehydrate, we will give 15 of Cardizem as his blood pressure is notably normal in conjunction with his history of A-fib, we we will monitor closely evaluate for electrolyte abnormalities and reassess. 2 PM Patient was given 15 mg of Cardizem and heart rate completely normalized to his sinus rhythm in the 70s. Patient feels well. He was observed for over an hour and heart rate remained stable in a sinus rhythm. Patient otherwise looks notably well. No indication for cardioversion, continued medication alteration, or additional dosing. Patient was discharged home. He will follow-up with his street engineer in 72 hours at their scheduled appointment at [facility]. Discussed red flags for which to return. I have extensively reviewed the treatment plan and discharge instructions with the patient and their family. I have addressed all patient concerns at this time. The patient and family was made aware of what symptoms to monitor for that would warrant a return to the emergency department. Discussed the plan with the patient and family, they demonstrate verbal understanding and agreement with our assessment and plan at this time. The documentation in this chart was dictated using [employer] dictation software. Please excuse any dictation errors. 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 I have personally provided 30 minutes of critical care time exclusive of time spent on separately billable procedures. Time includes review of laboratory data, radiology results, discussion with consultants, and monitoring for potential decompensation. Interventions were performed as documented. PFSH All Active Problems (Updated 04/28/25 @ 12:37 by Sam Bruno DO) Tachycardia (Acute) SVT (supraventricular tachycardia) (Chronic) Degenerative joint disease of right hip (Acute) On apixaban therapy (Acute) Takes dietary supplements (Acute) Elevated liver enzymes (Acute) Atrial fibrillation with rapid ventricular response (Acute) Elevated serum creatinine (Acute) Shingles (Acute) BPH (benign prostatic hyperplasia) (Chronic) Erectile dysfunction (Acute) Anxiety disorder (Chronic) Tinnitus, bilateral (Acute) Osteoarthritis cervical spine (Acute) RLS (restless legs syndrome) (Chronic) 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) Medical History Chest pain Social History Smoking/Tobacco Use Status: Never Smoking risk assessment performed?: Yes Alcohol Intake: never Drug use: Never Substance use type: does not use Housing: house Do you feel safe at home: Yes Do you feel safe in your relationship?: Yes
== END 2025-04-28 12:46 | disposition home or self-care (01) ==
PROVIDERS: Emergency Provider Student in an Organized Health Care Education/Training Program; PCP Family Medicine
DX: R00.0 Tachycardia, unspecified (principal); Z79.01 Long term (current) use of anticoagulants
CPT/HCPCS: 36415; 80053; 93005; 96374; 99291; 83880; 84443; 84484; 85025; 85610; 85730; 93010

== ENCOUNTER 2025-04-28 19:04 | Emergency (ER) | payer MEDICARE, SELFPAY ==
[2025-04-28] VITALS (7 sets, daily range): BP systolic 107–154; BP diastolic 71–99; PULSE 65–133; RESP 8–21; TEMP 37; O2SAT 95–99
--- NOTE | 2025-04-28 19:00 | RT.EKG_ITS ---
APPROVED REPORT Exam: Resting ECG Reason for Exam: A FIB Patient Location: E HR:92 bpm ECG Measurements Heart Rate 92 [place] [id number] P [id number] QRSd 85 QRS 14 QT 349 T 18 QTc 456 Conclusion Atrial flutter with predominant 3:1 AV block...A-rate 272, multiple Ps Ventricular premature complex...V complex w/ short R-R interval Nonspecific repol abnormality, diffuse leads...ST dep, T flat/neg, ant/lat/inf
[2025-04-28] MEDS: Metoprolol 50 MG TAB PO (19:31)
[2025-04-28] MEDS: dilTIAZem 25 MG/5 ML VIAL 15 MG IVP (19:45)
--- NOTE | 2025-04-28 23:22 | W.ED.GENAD ---
Discharge Plan Disposition Patient Disposition: Home Discharge Details Clinical Impression: Atrial fibrillation with rapid ventricular response Primary Care Provider: Brandy Muse ED Provider: Fransico Mock Home Meds and New Rx's Prescriptions: No Action ascorbic acid (vitamin C) 1,000 mg tablet 4 g PO DAILY omega-3 fatty acids [Fish Oil Concentrate] 1,000 mg capsule 2,000 mg PO DAILY cholecalciferol (vitamin D3) 25 mcg (1,000 unit) capsule 75 mcg PO DAILY PRN magnesium 250 mg tablet 250 mg PO DAILY folic acid 400 mcg tablet 0.8 mg PO DAILY vitamin B complex [Super B-50 Complex] Capsule 1 cap PO DAILY lysine [L-Lysine] 500 mg tablet 1,000 mg PO DAILY PRN turmeric root extract 500 mg capsule 500 mg PO DAILY gabapentin 100 mg capsule 100 mg PO HS PRN diazepam 5 mg tablet 5 mg PO PRN Patient Comments: TAKE 1 TABLET BY MOUTH TWICE DAILY NEEDED FOR ANXIETY acyclovir 800 mg tablet 800 mg PO DAILY PRN Patient Comments: TAKE 1 TABLET BY MOUTH FIVE TIMES DAILY FOR 7 DAYS. SPACE EVENLY WHILE AWAKE. Pt states he takes PRN for shingles BIJAN DELEON 04/04/25 metoprolol succinate 25 mg Tablet Extended Release 24 Hr 25 mg PO DAILY PRN Patient Comments: per pt PRN for high HR Eliquis 5 mg Tablet 5 mg PO BID Qty: 60 0RF Patient Comments: Pt states taking once daily - BIJAN DELEON 04/04/25 burburine 500 mg PO DAILY dofetilide 125 mcg Capsule 125 mcg PO BID Qty: 60 0RF Patient Comments: Pt states he takes once daily 04/04/25 Discharge Instructions Instructions: Atrial Fibrillation and Atrial Flutter ED Additional Instructions: As discussed, it is imperative that you follow-up with your cut off sawyer shingle mill next week as scheduled. Please return emergency department if you feel like your symptoms have returned and your heart rate is not managed by your medications. Also be sure to continue to take your blood thinner as scheduled. Please follow-up with your primary care provider regarding your visit to the emergency department today. Be sure to discuss results of all test performed here today to include radiology, and laboratory testing as well as results for any pending cultures. Should your symptoms worsen, or if you develop new concerning symptoms, please return immediately emergency department for further evaluation. Stand Alone Forms: Portal Information HPI General Date/Time Provider Initiated Documentation: 04/28/25 19:04. HPI Narrative: MDM/Narrative: 74-year-old male with A-fib and A-flutter, presenting for A-fib with RVR. Treated with 50 mg diltiazem IV and metoprolol 50 mg PO. Monitor patient. ED Course: Administered 50 mg diltiazem IV and metoprolol 50 mg PO. EKG shows no acute ischemic changes. Heart rate in 70s, sinus rhythm. No complaints, agreeable to discharge plan. Final Assessment: A-fib with RVR. Vital signs stable. Good response to IV diltiazem. Treated with IV diltiazem and metoprolol 50 mg PO. EKG shows no acute ischemic changes. Heart rate in 70s, sinus rhythm. No complaints, agreeable to discharge plan. Disposition: Discharge home. Follow up with PCP and cut off sawyer shingle mill this week. This document was created with assistance from [employer] Co-Sales And Marketing Analyst. HPI: The patient is a 74-year-old male with a medical history of atrial fibrillation, atrial flutter, and supraventricular tachycardia. He was previously evaluated in the emergency department for atrial fibrillation with rapid ventricular response and was treated with 50 mg of intravenous diltiazem, successfully converting to sinus rhythm. He was subsequently discharged with instructions for follow-up in 48 hours. Upon returning home, the patient experienced a sensation of fluttering in his chest. His smartwatch indicated a heart rate ranging from 120 to 135 beats per minute, prompting him to seek reevaluation. He reports no associated chest pain, dyspnea, dizziness, or other new symptoms. ROS: Negative besides as mentioned above Exam: Vital signs: Reviewed. General Appearance: Alert and oriented. No acute distress. HEENT: NCAT, EOMI, not icteric. External ears normal. No rhinorrhea. Moist mucous membranes. Neck: Supple, full range of motion, no observable masses, No meningeal sign. Respiratory: No Respiratory distress. No tachypnea. Cardiovascular: Irregular tachycardia noted. Gastrointestinal: Soft, nondistended, No rebound tenderness. Back: No midline tenderness to palpation or palpable step-offs of the C/T/L spine. Skin: Warm and dry, no rash. Neurological: Normal Gait, Grossly intact. Psychiatric: Appropriate for situation. Rhythm: Sinus arrhythmia Rate: 92 bpm Ringold: Normal axis Intervals: Normal intervals Other findings: No acute ST segment or T wave changes to suggest acute ischemia. Related Data Home Medications Medication Instructions Recorded Confirmed gabapentin 100 mg capsule 100 mg PO HS PRN 09/23/20 04/28/25 ascorbic acid (vitamin C) 1,000 mg 4 g PO DAILY 09/24/20 04/28/25 tablet cholecalciferol (vitamin D3) 25 75 mcg PO DAILY PRN 09/24/20 04/28/25 mcg (1,000 unit) capsule folic acid 400 mcg tablet 0.8 mg PO DAILY 09/24/20 04/28/25 lysine 500 mg tablet (L-Lysine) 1,000 mg PO DAILY PRN 09/24/20 04/28/25 magnesium 250 mg tablet 250 mg PO DAILY 09/24/20 04/28/25 omega-3 fatty acids 1,000 mg 2,000 mg PO DAILY 09/24/20 04/28/25 capsule (Fish Oil Concentrate) turmeric root extract 500 mg 500 mg PO DAILY 09/24/20 04/28/25 capsule vitamin B complex (Super B-50 1 cap PO DAILY 09/24/20 04/28/25 Complex capsule) apixaban 5 mg tablet (Eliquis) 5 mg PO BID #60 tabs 06/10/24 04/28/25 diazepam 5 mg tablet 5 mg PO PRN 12/04/24 04/28/25 Held on 04/28/25. Instructions: Pt Stopped/Never Started burburine 500 mg PO DAILY 12/28/24 04/28/25 dofetilide 125 mcg capsule 125 mcg PO BID #60 caps 03/04/25 04/28/25 acyclovir 800 mg tablet 800 mg PO DAILY PRN 04/04/25 04/28/25 metoprolol succinate 25 mg 25 mg PO DAILY PRN 04/04/25 04/28/25 tablet,extended release 24 hr Previous Rx's Medication Instructions Recorded apixaban 5 mg tablet (Eliquis) 5 mg PO BID #60 tabs 06/10/24 dofetilide 125 mcg capsule 125 mcg PO BID #60 caps 03/04/25 Allergies Allergy/AdvReac Type Severity Reaction Status Date / Time No Known Allergies Allergy Verified 04/28/25 19:14 General Stated Complaint: Arrhythmia ZION: 2 Course Vital Signs Vital signs: Vital Signs Pulse 131 H 04/28/25 19:09 Respiratory Rate 18 04/28/25 19:09 Blood Pressure 154/97 H 04/28/25 19:09 Pulse Oximetry 97 04/28/25 19:09 Temperature 37.0 C 04/28/25 20:30 Temperature Source Oral 04/28/25 19:09 Pulse 65 04/28/25 20:30 Pulse 65 04/28/25 20:30 Respiratory Rate 13 04/28/25 20:30 Blood Pressure 107/75 04/28/25 20:30 Blood Pressure Mean 84 04/28/25 20:30 Blood Pressure Position Sitting 04/28/25 19:09 Pulse Oximetry 96 04/28/25 20:30 Oxygen Delivery Method Room Air 04/28/25 20:00 Oxygen Flow Rate 0 04/28/25 20:00 Pain Level 0 04/28/25 21:00 Medical Decision Making Quality:SDOH Health Related Social Needs: Health related social needs 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 PFSH All Active Problems (Updated 04/28/25 @ 20:49 by Fransico Mock MD) Tachycardia (Acute) SVT (supraventricular tachycardia) (Chronic) Degenerative joint disease of right hip (Acute) On apixaban therapy (Acute) Takes dietary supplements (Acute) Elevated liver enzymes (Acute) Atrial fibrillation with rapid ventricular response (Acute) Elevated serum creatinine (Acute) Shingles (Acute) BPH (benign prostatic hyperplasia) (Chronic) Erectile dysfunction (Acute) Anxiety disorder (Chronic) Tinnitus, bilateral (Acute) Osteoarthritis cervical spine (Acute) RLS (restless legs syndrome) (Chronic) 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) Medical History Chest pain Social History Smoking/Tobacco Use Status: Never Smoking risk assessment performed?: Yes Alcohol Intake: former Drug use: Never Substance use type: does not use Housing: house Do you feel safe at home: Yes Do you feel safe in your relationship?: Yes
== END 2025-04-28 21:06 | disposition home or self-care (01) ==
PROVIDERS: Emergency Provider General Practice; PCP Family Medicine
DX: I48.91 Unspecified atrial fibrillation (principal)
CPT/HCPCS: 99283; 99284; 96374; 36415; 80053; 93005; 99291; 83880; 84443; 84484; 85025; 85610; 85730; 93010